=== PATIENT | male | born 1955 | race Hispanic/Latino ===

== ENCOUNTER 2016-09-17 13:44 | Inpatient (IN) | payer OTHER, MEDICARE ==
[2016-09-17 14:52] LABS: BASO # 0.1 K/uL (0.0-0.2); BASO % 1.2 % (0.0-2.0); EOS # 0.1 K/uL (0.0-0.7); EOS % 1.5 % (0.0-4.0); LYMPH # 1.1 K/uL (1.0-4.3); LYMPH % 24.2 % (20.0-40.0); MEAN CELL VOLUME 88.6 fL (80.0-94.0); MEAN CORPUSCULAR HEMOGLOBIN 29.6 pg (27.0-31.0); MEAN CORPUSCULAR HGB CONC 33.5 g/dL (33.0-37.0); MEAN PLATELET VOLUME 7.7 fL (7.2-11.7); MONO # 0.2 K/uL (0.0-0.8); MONO % 5.6 % (0.0-10.0); NRBC % 0.1 % (0.0-2.0); RED CELL DISTRIBUTION WIDTH 13.5 % (11.5-14.5); WHITE BLOOD COUNT 4.4 K/uL (4.8-10.8)
[2016-09-17 15:02] LABS: INR 1.3
[2016-09-17 15:10] LABS: CHLORIDE 100 mmol/L (98-107); POTASSIUM 4.1 mmol/L (3.6-5.2); SODIUM 139 mmol/L (132-148)
[2016-09-17 15:12] LABS: ALB/GLOB RATIO 1.3 (1.0-2.1); AST/SGOT 17 U/L (17-59); BILIRUBIN,TOTAL 0.7 mg/dL (0.2-1.3); CARBON DIOXIDE 26 mmol/L (22-30); GFR AFRICAN-AMERICAN > 60; TOTAL PROTEIN 6.9 g/dL (6.3-8.3)
[2016-09-17 15:13] LABS: ALKALINE PHOSPHATASE 86 U/L (38-126); ALT/SGPT 17 U/L (21-72); BLOOD UREA NITROGEN 17 mg/dL (9-20); CALCIUM 8.7 mg/dl (8.6-10.4); GLUCOSE,RANDOM 147 mg/dL (75-110)
--- NOTE | 2016-09-17 15:31 | C.PDOC ---
History Of Present Illness 61 y/o male referred to ED by reservations sales agent Dr Delarosa for admission for catheterization. Pt has no physical complaints at this time. Chief Complaint (Nursing): Medical Clearance History Per: Patient History/Exam Limitations: no limitations Reports Recently: Treated By A Physician Recent travel outside of the [place]: No Past Medical History Reviewed: Historical Data, Nursing Documentation, Vital Signs Vital Signs: Last Vital Signs Temp 98.5 F 09/17/16 13:49 Pulse 72 09/17/16 17:08 Resp 18 09/17/16 17:08 BP 122/78 09/17/16 17:08 Pulse Ox 98 09/17/16 17:08 - Medical History PMH: Hypercholesterolemia Family History: States: Unknown Family Hx - Social History Hx Alcohol Use: Yes Hx Substance Use: No - Immunization History Hx Tetanus Toxoid Vaccination: No Hx Influenza Vaccination: No Hx Pneumococcal Vaccination: No Review Of Systems Except As Marked, All Systems Reviewed And Found Negative. Constitutional: Negative for: Fever Cardiovascular: Negative for: Chest Pain Respiratory: Negative for: Cough, Shortness of Breath Gastrointestinal: Negative for: Vomiting Neurological: Negative for: Headache Physical Exam - Physical Exam Appears: Non-toxic, No Acute Distress Skin: Warm, Dry, No Rash Head: Atraumatic, Normacephalic Neck: Normal ROM Chest: Symmetrical Cardiovascular: Rhythm Regular, No Murmur Respiratory: Normal Breath Sounds, No Rales, No Rhonchi, No Wheezing Gastrointestinal/Abdominal: Soft, No Tenderness Extremity: No Pedal Edema Extremity: Bilateral: Atraumatic Neurological/Psych: Oriented x3, Normal Speech ED Course And Treatment - Laboratory Results Result Diagrams: 09/17/16 14:46 09/17/16 14:46 ECG: Interpreted By Me, Viewed By Me ECG Rhythm: Sinus Tachycardia Rate From EC (BPM) O2 Sat by Pulse Oximetry: 97 (on room air) Disposition - Disposition Disposition Time: 14:40 Condition: GOOD - Clinical Impression Clinical Impression: Bilateral carotid artery stenosis - Scribe Statement The provider has reviewed the documentation as recorded by the Liang Berry Provider Attestation: All medical record entries made by the Moriahibelaine were at my direction and personally dictated by me. I have reviewed the chart and agree that the record accurately reflects my personal performance of the history, physical exam, medical decision making, and the department course for this patient. I have also personally directed, reviewed, and agree with the discharge instructions and disposition.
--- NOTE | 2016-09-17 20:23 | CP.PCM.HP ---
History of Present Illness - History of Present Illness History of Present Illness: Chief complaint: Dizziness History present illness: 61-year-old male with history of CVA with right-sided weakness, mild hypertension, hypercholesteremia came to the office recently on August 26, 2016, at that time patient was complaining of some dizziness, and episodes of spinning sensation of the room. Patient did not have any headache at the time. No chest pain, nausea, vomiting at the time. Immediately I advised the patient to have a further workup for dizziness. Given the high risk of carotid problems. I advised the patient to have a sonogram of the carotids. He underwent a sonogram of the carotid after that, which showed significant carotid stenosis, bilateral, I suggested the patient to have further evaluation and immediate intervention. Patient was seen by vascular surgery, and suggested to have intervention surgically. Meanwhile patient was continues to have symptoms of dizziness, advised the patient to go to see the boiler mechanic, who recommended go to the hospital immediately. Even though he did not have a chest pain. Patient is at high risk for CAD, suggested to have further evaluation and management for heart disease. Present on Admission - Present on Admission Any Indicators Present on Admission: No History of DVT/PE: No History of Uncontrolled Diabetes: No Urinary Catheter: No Decubitus Ulcer Present: No Review of Systems - Review of Systems All systems: reviewed and no additional remarkable complaints except Review of Systems: Patient is feeling otherwise okay, he is expressive aphasia, but understand and he possibly well with. He does not have any chest pain or shortness of breath. Complaining of dizziness occasionally. Still continues to smoke. No chest pain. Denies any nausea vomiting. No leg swelling Past Patient History - Infectious Disease Hx of Infectious Diseases: None - Past Medical History & Family History Past Medical History?: Yes Past Family History: Reviewed and not pertinent - Past Social History Smoking Status: Current Some Days Smoker Chewing Tobacco Use: No Cigar Use: No Alcohol: None Home Situation {Lives}: With Family - CARDIAC Hx Hypercholesterolemia: Yes - NEUROLOGICAL HX Cerebrovascular Accident: Yes (12 YEARS AGO) - PSYCHIATRIC Hx Substance Use: No - SURGICAL HISTORY Hx Herniorrhaphy: Yes - ANESTHESIA Hx Anesthesia: Yes Hx Anesthesia Reactions: No Meds Allergies/Adverse Reactions: Allergies Allergy/AdvReac Type Severity Reaction Status Date / Time No Known Allergies Allergy Verified 09/17/16 13:52 Physical Exam - Constitutional Additional comments: Patient is having right-sided weakness. Expressive aphasia noted. Denies any chest pain. Bilateral leg swelling occasionally noted. Eating okay. Appetite is good - Head Exam Additional comments: On examination: HEENT PERRLA, neck supple No thyromegaly was noted and no cervical adenopathy noted Chest bilateral good air entry, no wheezing or rales noted CVS regular heart sound, no murmur Abdomen soft and no organomegaly Extremities no pedal edema, no leg swelling, pedal pulses are good. patient with right-sided weakness. expressive aphasia. Results - Vital Signs Recent Vital Signs: Last Vital Signs Temp 98.5 F 09/17/16 13:49 Pulse 83 09/17/16 19:45 Resp 21 09/17/16 19:45 BP 118/75 09/17/16 19:45 Pulse Ox 95 09/17/16 19:45 - Labs Result Diagrams: 09/17/16 14:46 09/17/16 14:46 Assessment & Plan (1) CVA (cerebral vascular accident) Assessment and Plan: Patient with history of CVA, currently having bilateral carotid artery stenosis , severe. Currently on medications. He is on dual antiplatelets treatment. Anticholesterol medication is on. Blood pressure stable, currently not in any antihypertensives. Will closely monitor the patient. Avoid hypertension. Cardiology evaluation, neurological evaluation. Will follow the patient Status: Acute (2) Carotid stenosis, bilateral Status: Acute (3) HTN (hypertension) Status: Acute
--- NOTE | 2016-09-17 22:09 | CP.PCM.CON ---
History of Present Illness - History of Present Illness History of Present Illness: Pre Operative Cardiac risk assessment 61 y/o male with Critical Carotid artery disease, HTN, Tobacco use, CVA for CEA History Of Present Illness Chief Complaint (Nursing): Medical Clearance History Per: Patient History/Exam Limitations: no limitations Reports Recently: Treated By A Physician Recent travel outside of the [place]: No Past Medical History Reviewed: Historical Data, Nursing Documentation, Vital Signs Vital Signs: Last Vital Signs Temp 98.5 F 09/17/16 13:49 Pulse 72 09/17/16 17:08 Resp 18 09/17/16 17:08 BP 122/78 09/17/16 17:08 Pulse Ox 98 09/17/16 17:08 - Medical History PMH: Hypercholesterolemia Family History: States: Unknown Family Hx - Social History Hx Alcohol Use: Yes Hx Substance Use: No - Immunization History Hx Tetanus Toxoid Vaccination: No Hx Influenza Vaccination: No Hx Pneumococcal Vaccination: No Review Of Systems Except As Marked, All Systems Reviewed And Found Negative. Constitutional: Negative for: Fever Cardiovascular: Negative for: Chest Pain Respiratory: Negative for: Cough, Shortness of Breath Gastrointestinal: Negative for: Vomiting Neurological: Negative for: Headache Physical Exam - Physical Exam Appears: Non-toxic, No Acute Distress Skin: Warm, Dry, No Rash Head: Atraumatic, Normacephalic Neck: Normal ROM Chest: Symmetrical Cardiovascular: Rhythm Regular, No Murmur Respiratory: Normal Breath Sounds, No Rales, No Rhonchi, No Wheezing Gastrointestinal/Abdominal: Soft, No Tenderness Extremity: No Pedal Edema Extremity: Bilateral: Atraumatic Neurological/Psych: Oriented x3, Normal Speech Past Patient History - Infectious Disease Hx of Infectious Diseases: None - Past Social History Smoking Status: Light Smoker < 10 Cigarettes Daily - CARDIAC Hx Hypercholesterolemia: Yes - NEUROLOGICAL HX Cerebrovascular Accident: Yes (12 YEARS AGO) - MUSCULOSKELETAL/RHEUMATOLOGICAL Hx Falls: No - PSYCHIATRIC Hx Substance Use: No - SURGICAL HISTORY Hx Herniorrhaphy: Yes - ANESTHESIA Hx Anesthesia: Yes Hx Anesthesia Reactions: No Meds Allergies/Adverse Reactions: Allergies Allergy/AdvReac Type Severity Reaction Status Date / Time No Known Allergies Allergy Verified 09/17/16 13:52 - Medications Medications: Current Medications Dipyridamole/Aspirin (Aggrenox 25-200 Mg) 1 ea PO BID [facility] Heparin Sodium (Porcine) (Heparin) 5,000 units SC Q8 [facility] Pneumococcal Polyvalent Vaccine (Pneumovax 23 Vaccine) 0.5 ml IM .ONCE ONE Stop: 09/22/16 10:01 Rosuvastatin Calcium (Crestor) 10 mg PO HS [facility] Results - Vital Signs Recent Vital Signs: Last Vital Signs Temp 97.7 F 09/17/16 20:45 Pulse 81 09/17/16 20:45 Resp 20 09/17/16 20:45 BP 127/85 09/17/16 20:45 Pulse Ox 97 09/17/16 20:45 - Labs Result Diagrams: 09/17/16 14:46 09/17/16 14:46 Assessment & Plan (1) Carotid stenosis, bilateral Assessment and Plan: For cardiac cath in am Status: Acute (2) CVA (cerebral vascular accident) Status: Acute (3) HTN (hypertension) Status: Acute (4) Hyperlipidemia Status: Acute
--- NOTE | 2016-09-18 08:30 | CP.PCM.PN ---
Subjective - Date & Time of Evaluation Date of Evaluation: 09/18/16 Time of Evaluation: 06:45 - Subjective Subjective: Vascular Surgery Dr. Aguilera 61 y/o M is a known pt of Dr. Aguilera. Pt presented to the ED for cardiac cathaterization today. Pt is scheduled for a CEA on Wednesday. Pt has Hx of CVA, is aphasic, and uses splints on R arm and leg. NAEO. no complaints this AM. NPO for procedure this AM. Objective - Vital Signs/Intake and Output Vital Signs (last 24 hours): Temp Pulse Resp BP Pulse Ox 97.7 F 81 20 131/74 97 09/18/16 04:00 09/18/16 07:30 09/18/16 04:00 09/18/16 04:00 09/18/16 04:00 Intake and Output: 09/18/16 09/18/16 06:59 18:59 Intake Total 200 Balance 200 - Medications Medications: Current Medications Dipyridamole/Aspirin (Aggrenox 25-200 Mg) 1 ea PO BID [facility] Heparin Sodium (Porcine) (Heparin) 5,000 units SC Q8 [facility] Last Admin: 09/18/16 06:22 Dose: Not Given Pneumococcal Polyvalent Vaccine (Pneumovax 23 Vaccine) 0.5 ml IM .ONCE ONE Stop: 09/22/16 10:01 Rosuvastatin Calcium (Crestor) 10 mg PO HS [facility] - Labs Labs: PT 15.0 SECONDS (9.7-12.2) H 09/17/16 14:46 INR 1.3 09/17/16 14:46 APTT 33 SECONDS (21-34) 09/18/16 07:01 - Constitutional Appears: Non-toxic, No Acute Distress - Head Exam Head Exam: NORMAL INSPECTION - Eye Exam Eye Exam: Normal appearance - ENT Exam ENT Exam: Mucous Membranes Moist - Respiratory Exam Respiratory Exam: NORMAL BREATHING PATTERN. absent: Accessory Muscle Use, Respiratory Distress - GI/Abdominal Exam GI & Abdominal Exam: Soft. absent: Distended - Neurological Exam Neurological Exam: Alert, Awake - Psychiatric Exam Psychiatric exam: Normal Affect, Normal Mood - Skin Skin Exam: Dry, Intact, Normal Color, Warm Assessment and Plan - Assessment and Plan (Free Text) Assessment: 61 y/o M w/ B/L carotid artery stenosis s/p L CVA. - Cardiac cath this AM - may be discharged if cath is negative - CEA scheduled for Wednesday - cont medical management Pt discussed w/ Dr. Ale Saldivar PGY1
[2016-09-18] MEDS ORDERED: Midazolam 2 MG/2 ML VIAL ONE (09:03)
[2016-09-18] MEDS ORDERED: Aspirin-Dipyridamole 200-25 mg ER Cap PO SCH (10:00)
--- NOTE | 2016-09-18 11:53 | CP.PCM.CON ---
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 Flores HPI: Patient is a 61 year old male, with PMHx of Carotid artery disease, HTN, BPH, hyperlipidemia, CVA (12 years ago; sequelae of expressive aphasia and right sided paralysis), who presented to ED on 09/[address] Delarosa for cardiac catheterization. Carotids found to be 99% stenosed bilaterally. Patient was originally scheduled for carotid endarterectomy, but during cath pt was found to have 99% blockage of left circumflex, and 85% stenosis of Proximal RCA. Pt scheduled for PCI on Wednesday in [place], and CEA next . Pt admits increased dyspnea on exertion with 'long walks.' Walking is more difficult at baseline due to sequelae of right sided weakness from prior stroke. Pt denies chest pain, palpitations, abdominal pain, diaphoresis, or dyspnea. Allergies: NKA PMHx: see above FHx: Mother - Carotid artery disease, Father - [place] PMD: Dr. Fung SHx: Tobacco: , Alcohol: Red wine daily, Illicit Drugs: denies Meds: Aggrenox 25/200mg, Lipitor 40mg, Uroxatral 10mg Review of Systems - Review of Systems Systems not reviewed;Unavailable: Language Barrier (Pt aphasic from past stroke) - Constitutional Constitutional: absent: Chills, Fever - EENT Eyes: absent: Change in Vision Ears: absent: Decreased Hearing - Cardiovascular Cardiovascular: Dyspnea on Exertion (with 'long walks'). absent: Chest Pain, Chest Pain at Rest, Dyspnea - Respiratory Respiratory: absent: Cough - Gastrointestinal Gastrointestinal: absent: Abdominal Pain, Nausea, Vomiting - Genitourinary Genitourinary: absent: Dysuria - Musculoskeletal Musculoskeletal: absent: Numbness, Tingling Additional comments: contracture of right side, sequelae of previous stroke - Integumentary Integumentary: absent: Swelling - Psychiatric Psychiatric: absent: Anxiety, Depression - Endocrine Endocrine: absent: Fatigue, Polydipsia, Polyphagia, Polyuria - Hematologic/Lymphatic Hematologic: absent: Easy Bleeding Past Patient History - Infectious Disease Hx of Infectious Diseases: None - Past Medical History & Family History Past Medical History?: Yes - Past Social History Smoking Status: Light Smoker < 10 Cigarettes Daily - CARDIAC Hx Hypercholesterolemia: Yes - NEUROLOGICAL HX Cerebrovascular Accident: Yes (12 YEARS AGO) - MUSCULOSKELETAL/RHEUMATOLOGICAL Hx Falls: No - PSYCHIATRIC Hx Substance Use: No - SURGICAL HISTORY Hx Herniorrhaphy: Yes - ANESTHESIA Hx Anesthesia: Yes Hx Anesthesia Reactions: No Meds Allergies/Adverse Reactions: Allergies Allergy/AdvReac Type Severity Reaction Status Date / Time No Known Allergies Allergy Verified 09/17/16 13:52 - Medications Medications: Current Medications Aspirin (Ecotrin) 81 mg PO DAILY [facility] Clopidogrel Bisulfate (Plavix) 75 mg PO DAILY [facility] Enoxaparin Sodium (Lovenox) 70 mg SC DAILY [facility] Famotidine (Pepcid) 20 mg PO BID [facility] Heparin Sodium (Porcine) (Heparin) 5,000 units SC Q8 [facility] Last Admin: 09/18/16 06:22 Dose: Not Given Pneumococcal Polyvalent Vaccine (Pneumovax 23 Vaccine) 0.5 ml IM .ONCE ONE Stop: 09/22/16 10:01 Rosuvastatin Calcium (Crestor) 20 mg PO [facility] Physical Exam - Constitutional Appears: Non-toxic, No Acute Distress - Head Exam Head Exam: ATRAUMATIC, NORMAL INSPECTION - Eye Exam Eye Exam: EOMI Pupil Exam: PERRL - ENT Exam ENT Exam: Mucous Membranes Moist - Respiratory Exam Respiratory Exam: Clear to Auscultation Bilateral, NORMAL BREATHING PATTERN - Cardiovascular Exam Cardiovascular Exam: REGULAR RHYTHM, +S1, +S2 - GI/Abdominal Exam GI & Abdominal Exam: Normal Bowel Sounds, Soft. absent: Tenderness - Extremities Exam Extremities exam: Positive for: normal inspection. Negative for: tenderness - Neurological Exam Neurological exam: Alert, Oriented x3 - Skin Skin Exam: Normal Color, Warm Results - Vital Signs Recent Vital Signs: Last Vital Signs Temp 97.6 F 09/18/16 08:29 Pulse 70 09/18/16 08:29 Resp 20 09/18/16 08:29 BP 114/72 09/18/16 08:29 Pulse Ox 96 09/18/16 08:29 - Labs Result Diagrams: 09/17/16 14:46 09/17/16 14:46 Assessment & Plan - Assessment and Plan (Free Text) Assessment: 61 year old male with hx of CAD, HTN, hyperlipidemia, with carotids found to be 99% stenosed bilaterally, and during cath pt was found to have 99% blockage of left circumflex, and 85% stenosis of Proximal RCA. CEA and Cath scheduled for next week. Monitoring in ICU until then. Plan: Neuro: AAOx3 Hx of CVA (12 years ago) - Sequelae of right sided weakness, expressive aphasia - Passed speech therapy swallow study Hx of bilateral Carotid stenosis - 99% blockage bilaterally - CEA scheduled for next with Dr. Aguilera Cardio: CAD Cardiac cath (09/18/16): - Left circumflex 99% stenosis, Prox RCA 85% - Wednesday PCI @ [place] [facility] 81 mg Daily Plavix 75 mg Daily Crestor 20mg PO HS Normotensive GI: Heart Healthy Diet LFTs: WNL /Renal: Hx of BPH - Pt will bring in home Uroxatral BUN/Cr: WNL, GFR: MSKLTL: f/u PT/OT eval Prophylaxis: DVT: SCDs VTE: Lovenox SC Q12H GI: Pepcid 20mg PO BID <Dashawn Flores - Last Filed: 09/18/16 18:56> Meds - Medications Medications: Current Medications Aspirin (Ecotrin) 81 mg PO DAILY [facility] Clopidogrel Bisulfate (Plavix) 75 mg PO DAILY [facility] Enoxaparin Sodium (Lovenox) 70 mg SC Q12H [facility] Last Admin: 09/18/16 18:29 Dose: 70 mg Famotidine (Pepcid) 20 mg PO BID [facility] Last Admin: 09/18/16 18:25 Dose: 20 mg Pneumococcal Polyvalent Vaccine (Pneumovax 23 Vaccine) 0.5 ml IM .ONCE ONE Stop: 09/22/16 10:01 Rosuvastatin Calcium (Crestor) 20 mg PO [facility] Results - Vital Signs Recent Vital Signs: Last Vital Signs Temp 97.8 F 09/18/16 16:00 Pulse 89 09/18/16 18:45 Resp 24 09/18/16 18:45 BP 140/86 09/18/16 18:45 Pulse Ox 95 09/18/16 18:45 - Labs Result Diagrams: 09/17/16 14:46 09/17/16 14:46 Attending/Attestation - Attestation I have personally seen and examined this patient.: Yes I have fully participated in the care of the patient.: Yes I have reviewed all pertinent clinical information: Yes Notes (Text): 09/18/16 18:55 I have seen and examined the patient. Medical records, lab studies, and imaging were reviewed by me and a management plan was formulated on multidisciplinary rounds with resident Dr. Russ. I agree with their above documented assessment and plan. Clinically stable, patient getting ICU monitoring for high risk of decompensation from multiple arterial occlusions. Angioplasty scheduled for Wednesday. Critical Care Time 35 minutes. Multi-disciplinary rounds were performed with house staff, nursing, speech therapy, respiratory therapy, pharmacy and nutrition with integrated input from the primary team/attending and other consulting services. The documented time is cumulative and includes review of patient data/exams/labs/chart review and examination of the patient on rounds and throughout the day; time is exclusive of any procedures or teaching time.
--- NOTE | 2016-09-18 16:55 | CP.PCM.PN ---
Subjective - Date & Time of Evaluation Date of Evaluation: 09/18/16 Time of Evaluation: 11:30 - Subjective Subjective: Patient s/p cath L Main: Patent LAD: Mid 30% stenosis L Cx: OM1 99% stenosis RCA: Proximal 85% stenosis EF: Moderately depressed Patient with b/l Critical Carotid stenosis For PCI of RCA and OM1 on Wednesday CEA on Due to criticality of Carotid and Caronary lesions recommend ICU monitoring with anticoagulation on board Plan discussed with the physician team include Dr. Oneil and Dr. Aguilera and the family including the patient Every body in agreement Objective - Vital Signs/Intake and Output Vital Signs (last 24 hours): Temp Pulse Resp BP Pulse Ox 97.8 F 75 16 109/77 95 09/18/16 16:00 09/18/16 16:30 09/18/16 16:30 09/18/16 16:30 09/18/16 16:30 - Medications Medications: Current Medications Aspirin (Ecotrin) 81 mg PO DAILY [facility] Clopidogrel Bisulfate (Plavix) 75 mg PO DAILY [facility] Enoxaparin Sodium (Lovenox) 70 mg SC DAILY [facility] Famotidine (Pepcid) 20 mg PO BID [facility] Heparin Sodium (Porcine) (Heparin) 5,000 units SC Q8 [facility] Last Admin: 09/18/16 06:22 Dose: Not Given Pneumococcal Polyvalent Vaccine (Pneumovax 23 Vaccine) 0.5 ml IM .ONCE ONE Stop: 09/22/16 10:01 Rosuvastatin Calcium (Crestor) 20 mg PO HS [facility] - Labs Labs: PT 15.0 SECONDS (9.7-12.2) H 09/17/16 14:46 INR 1.3 09/17/16 14:46 APTT 33 SECONDS (21-34) 09/18/16 07:01 Assessment and Plan (1) Carotid stenosis, bilateral Status: Acute (2) CVA (cerebral vascular accident) Status: Acute (3) HTN (hypertension) Status: Acute (4) Hyperlipidemia Status: Acute
[2016-09-18] MEDS: Enoxaparin 80 mg Syringe SC SCH (18:29)
[2016-09-18] MEDS ORDERED: Enoxaparin 80 mg Syringe SC SCH (20:00)
--- NOTE | 2016-09-18 20:55 | CP.PCM.PN ---
Subjective - Date & Time of Evaluation Date of Evaluation: 09/18/16 Time of Evaluation: 20:54 - Subjective Subjective: Patient is awake and responding. He underwent cardiac catheterization today. Spoke to the patient's . Patient is having 2 vessel disease. Ejection fraction is on the low side. Most likely patient will be getting cardiac intervention. Followed by patient will go for CEA. Will get a neurology evaluation also Objective - Vital Signs/Intake and Output Vital Signs (last 24 hours): Temp Pulse Resp BP Pulse Ox 97.8 F 89 24 140/86 95 09/18/16 16:00 09/18/16 18:45 09/18/16 18:45 09/18/16 18:45 09/18/16 18:45 Intake and Output: 09/18/16 09/19/16 18:59 06:59 Intake Total 600 Output Total 750 Balance -150 - Medications Medications: Current Medications Aspirin (Ecotrin) 81 mg PO DAILY [facility] Clopidogrel Bisulfate (Plavix) 75 mg PO DAILY [facility] Enoxaparin Sodium (Lovenox) 70 mg SC Q12H [facility] Last Admin: 09/18/16 18:29 Dose: 70 mg Famotidine (Pepcid) 20 mg PO BID [facility] Last Admin: 09/18/16 18:25 Dose: 20 mg Pneumococcal Polyvalent Vaccine (Pneumovax 23 Vaccine) 0.5 ml IM .ONCE ONE Stop: 09/22/16 10:01 Rosuvastatin Calcium (Crestor) 20 mg PO HS [facility] - Labs Labs: PT 15.0 SECONDS (9.7-12.2) H 09/17/16 14:46 INR 1.3 09/17/16 14:46 APTT 33 SECONDS (21-34) 09/18/16 07:01 Assessment and Plan (1) CVA (cerebral vascular accident) Status: Acute (2) Carotid stenosis, bilateral Status: Acute (3) HTN (hypertension) Status: Acute
[2016-09-19] MEDS: Enoxaparin 80 mg Syringe SC SCH ×2 (06:07→17:40)
[2016-09-19 06:54] LABS: CHLORIDE 104 mmol/L (98-107); SODIUM 137 mmol/L (132-148)
[2016-09-19 06:56] LABS: ALB/GLOB RATIO 1.2 (1.0-2.1); ALKALINE PHOSPHATASE 56 U/L (38-126); AST/SGOT 44 U/L (17-59); BLOOD UREA NITROGEN 14 mg/dL (9-20); CARBON DIOXIDE 22 mmol/L (22-30); GFR AFRICAN-AMERICAN > 60; TOTAL PROTEIN 7.1 g/dL (6.3-8.3)
[2016-09-19 06:57] LABS: GLUCOSE,RANDOM 93 mg/dL (75-110); MAGNESIUM 1.9 mg/dL (1.6-2.3); PHOSPHOROUS 3.7 mg/dL (2.5-4.5)
[2016-09-19 06:58] LABS: CALCIUM 7.9 mg/dl (8.6-10.4); POTASSIUM 5.8 mmol/L (3.6-5.2)
[2016-09-19 06:59] LABS: ALT/SGPT < 6 U/L (21-72); BILIRUBIN,TOTAL 2.1 mg/dL (0.2-1.3)
[2016-09-19 07:10] LABS: BASO % 0.7 % (0.0-2.0); EOS # 0.1 K/uL (0.0-0.7); EOS % 2.4 % (0.0-4.0); HEMATOCRIT 43.2 % (35.0-51.0); LYMPH # 1.3 K/uL (1.0-4.3); MEAN CELL VOLUME 88.6 fL (80.0-94.0); MEAN CORPUSCULAR HEMOGLOBIN 29.5 pg (27.0-31.0); MEAN CORPUSCULAR HGB CONC 33.3 g/dL (33.0-37.0); MEAN PLATELET VOLUME 8.6 fL (7.2-11.7); MONO # 0.4 K/uL (0.0-0.8); MONO % 7.8 % (0.0-10.0); NRBC % 0.5 % (0.0-2.0); RED CELL DISTRIBUTION WIDTH 13.3 % (11.5-14.5); WHITE BLOOD COUNT 5.3 K/uL (4.8-10.8)
--- NOTE | 2016-09-19 11:35 | CP.PCM.PN ---
Subjective - Date & Time of Evaluation Date of Evaluation: 09/19/16 Time of Evaluation: 10:30 - Subjective Subjective: Vascular Surgery Pt S&E, NAEO. Pt is aphasic but can answer via nodding. Denies current C/O Objective - Vital Signs/Intake and Output Vital Signs (last 24 hours): Temp Pulse Resp BP Pulse Ox 98.0 F 73 18 127/87 97 09/19/16 04:00 09/19/16 04:00 09/19/16 04:00 09/19/16 04:00 09/19/16 04:00 Intake and Output: 09/19/16 09/19/16 06:59 18:59 Intake Total 1080 240 Output Total 2150 Balance -1070 240 - Medications Medications: Current Medications Aspirin (Ecotrin) 81 mg PO DAILY [facility] Clopidogrel Bisulfate (Plavix) 75 mg PO DAILY [facility] Enoxaparin Sodium (Lovenox) 70 mg SC Q12H [facility] Last Admin: 09/19/16 06:07 Dose: 70 mg Famotidine (Pepcid) 20 mg PO BID [facility] Last Admin: 09/18/16 18:25 Dose: 20 mg Pneumococcal Polyvalent Vaccine (Pneumovax 23 Vaccine) 0.5 ml IM .ONCE ONE Stop: 09/22/16 10:01 Rosuvastatin Calcium (Crestor) 20 mg PO [facility] Last Admin: 09/18/16 21:32 Dose: 20 mg - Labs Labs: 09/19/16 06:40 09/19/16 06:40 PT 15.0 SECONDS (9.7-12.2) H 09/17/16 14:46 INR 1.3 09/17/16 14:46 APTT 33 SECONDS (21-34) 09/18/16 07:01 - Constitutional Appears: Non-toxic, No Acute Distress - Head Exam Head Exam: ATRAUMATIC, NORMOCEPHALIC - Respiratory Exam Respiratory Exam: NORMAL BREATHING PATTERN. absent: Respiratory Distress - GI/Abdominal Exam GI & Abdominal Exam: Soft. absent: Distended, Tenderness - Neurological Exam Neurological Exam: Alert, Awake - Skin Skin Exam: Dry, Warm Assessment and Plan - Assessment and Plan (Free Text) Assessment: 61M w/ B/L carotid artery stenosis s/p L CVA. Plan: Cardiac cath done. Planning for L CEA this coming week D/W Dr. Ale Burnette PGY3
--- NOTE | 2016-09-19 15:12 | CARD ---
APPROVED REPORT EKG Measurement Heart [id number] MI [id number] <Conclusion> Sinus tachycardia Left axis deviation Possible Lateral infarct, age undetermined Inferior-posterior infarct, age undetermined Abnormal ECG
--- NOTE | 2016-09-19 15:20 | CP.CCUPN ---
CCU Objective - Vital Signs / Intake & Output Intake and Output (Last 8hrs): Intake & Output 09/19/16 09/19/16 09/19/16 06:59 14:59 22:59 Intake Total 480 990 Output Total 1500 800 Balance -1020 190 Intake: Intake, IV Amount 0 Left Antecubital 0 Oral 480 990 Output: Urine 1500 800 Urine, Voided 1500 800 Other: # Voids Urine, Voided 0 # Bowel Movements 0 - Physical Exam Head: Positive for: Atraumatic, Normocephalic Pupils: Positive for: PERRL Extroacular Muscles: Positive for: EOMI Conjunctiva: Positive for: Normal Mouth: Positive for: Moist Mucous Membranes Neck: Positive for: Normal Range of Motion Respiratory/Chest: Positive for: Clear to Auscultation, Good Air Exchange Cardiovascular: Positive for: Regular Rate and Rhythm Abdomen: Positive for: Normal Bowel Sounds. Negative for: Tenderness, Distention Upper Extremity: Positive for: Normal Inspection Lower Extremity: Positive for: Normal Inspection Neurological: Positive for: GCS=15, CN II-XII Intact Psychiatric: Positive for: Alert, Oriented x 3 - Medications Active Medications: Active Medications Generic Name Dose Route Start Last Admin Trade Name Freq PRN Reason Stop Dose Admin Aspirin 81 mg 09/19/16 10:00 09/19/16 11:57 Ecotrin PO 81 mg DAILY [facility] Administration Clopidogrel Bisulfate 75 mg 09/19/16 10:00 09/19/16 11:57 Plavix PO 75 mg DAILY [facility] Administration Enoxaparin Sodium 70 mg 09/18/16 18:00 09/19/16 06:07 Lovenox SC 70 mg Q12H [facility] Administration Famotidine 20 mg 09/18/16 18:00 09/19/16 11:57 Pepcid PO 20 mg BID [facility] Administration Pneumococcal Polyvalent Vaccine 0.5 ml 09/22/16 10:00 Pneumovax 23 Vaccine IM 09/22/16 10:01 .ONCE ONE Rosuvastatin Calcium 20 mg 09/18/16 22:00 09/18/16 21:32 Crestor PO 20 mg HS [facility] Administration - Patient Studies Lab Studies: Lab Studies 09/19/16 Range/Units 06:40 WBC 5.3 (4.8-10.8) K/uL RBC 4.88 (4.40-5.90) Mil/uL Hgb 14.4 (12.0-18.0) g/dL Hct 43.2 (35.0-51.0) % MCV 88.6 (80.0-94.0) fL MCH 29.5 (27.0-31.0) pg MCHC 33.3 (33.0-37.0) g/dL RDW 13.3 (11.5-14.5) % Plt Count 167 (130-400) K/uL MPV 8.6 (7.2-11.7) fL Neut % (Auto) 64.1 (50.0-75.0) % Lymph % (Auto) 25.0 (20.0-40.0) % Treasure % (Auto) 7.8 (0.0-10.0) % Eos % (Auto) 2.4 (0.0-4.0) % Baso % (Auto) 0.7 (0.0-2.0) % Neut # 3.4 (1.8-7.0) K/uL Lymph # 1.3 (1.0-4.3) K/uL Treasure # 0.4 (0.0-0.8) K/uL Eos # 0.1 (0.0-0.7) K/uL Baso # 0.0 (0.0-0.2) K/uL Sodium 137 (132-148) mmol/L Potassium 5.8 H (3.6-5.2) mmol/L Chloride 104 (98-107) mmol/L Carbon Dioxide 22 (22-30) mmol/L Anion Gap 17 (10-20) BUN 14 (9-20) mg/dL Creatinine 0.8 (0.8-1.5) MG/DL Est GFR ( Amer) > 60 Est GFR (Non-Af Amer) > 60 Random Glucose 93 (75-110) mg/dL Calcium 7.9 L (8.6-10.4) mg/dl Phosphorus 3.7 (2.5-4.5) mg/dL Magnesium 1.9 (1.6-2.3) mg/dL Total Bilirubin 2.1 H (0.2-1.3) mg/dL AST 44 (17-59) U/L ALT < 6 L D (21-72) U/L Alkaline Phosphatase 56 (38-126) U/L Total Protein 7.1 (6.3-8.3) g/dL Albumin 3.8 (3.5-5.0) g/dL Globulin 3.3 (2.2-3.9) gm/dL Albumin/Globulin Ratio 1.2 (1.0-2.1) Laboratory Results - last 24 hr 09/19/16 06:40 WBC 5.3 RBC 4.88 Hgb 14.4 Hct 43.2 MCV 88.6 MCH 29.5 MCHC 33.3 RDW 13.3 Plt Count 167 MPV 8.6 Neut % (Auto) 64.1 Lymph % (Auto) 25.0 Treasure % (Auto) 7.8 Eos % (Auto) 2.4 Baso % (Auto) 0.7 Neut # 3.4 Lymph # 1.3 Treasure # 0.4 Eos # 0.1 Baso # 0.0 Sodium 137 Potassium 5.8 H Chloride 104 Carbon Dioxide 22 Anion Gap 17 BUN 14 Creatinine 0.8 Est GFR ( Amer) > 60 Est GFR (Non-Af Amer) > 60 Random Glucose 93 Calcium 7.9 L Phosphorus 3.7 Magnesium 1.9 Total Bilirubin 2.1 H AST 44 ALT < 6 L D Alkaline Phosphatase 56 Total Protein 7.1 Albumin 3.8 Globulin 3.3 Albumin/Globulin Ratio 1.2 Review of Systems - Review of Systems All systems: reviewed and no additional remarkable complaints except Critical Care Progress Note - Nutrition Nutrition: Nutrition Category Date Time Status Heart Healthy Diet [DIET] Diets 09/18/16 Lunch Active Assessment/Plan (1) CAD (coronary artery disease) Assessment and plan: Assessment: 61 year old male with hx of CAD, HTN, hyperlipidemia, with carotids found to be 99% stenosed bilaterally, and during cath pt was found to have 99% blockage of left circumflex, and 85% stenosis of Proximal RCA. CEA and Cath scheduled for next week. Monitoring in ICU until then. Plan: Neuro: AAOx3 Hx of CVA (12 years ago) - Sequelae of right sided weakness, expressive aphasia - Passed speech therapy swallow study Hx of bilateral Carotid stenosis - 99% blockage bilaterally - CEA scheduled for next with Dr. Aguilera Cardio: CAD Cardiac cath (09/18/16): - Left circumflex 99% stenosis, Prox RCA 85% - Wednesday PCI @ [place] A[facility] 81 mg Daily Plavix 75 mg Daily Crestor 20mg PO HS Normotensive GI: Heart Healthy Diet LFTs: WNL /Renal: Hx of BPH - Pt will bring in home Uroxatral BUN/Cr: WNL, GFR: MSKLTL: f/u PT/OT eval Prophylaxis: DVT: SCDs VTE: Lovenox SC Q12H GI: Pepcid 20mg PO BID Patient is clinically stable. Current Visit: Yes Status: Acute
--- NOTE | 2016-09-19 15:27 | CON ---
DATE: 09/19/2016 ATTENDING PHYSICIAN: Moreno Fung MD. REASON FOR CONSULTATION: Stroke and significant carotid artery stenosis. CHIEF COMPLAINT: The patient was brought into [facility] as per primary care physician. Been advised because of his dizziness and chest discomfort. From neurological point of view, I was called in for neurological clearance to go for cardiac stent placement. HISTORY OF PRESENT ILLNESS: The patient is a 61-year-old right-handed [place] male presenting with about a 1 hour history of lightheadedness with unsteady gait, which lasted for about 1 hour, not associated with vertigo or speech impairment. He denies any focal weakness. The symptoms disappeared by itself. Considering his chest discomfort, the patient did undergo cardiac catheterization that showed 2 artery disease which is scheduled to have a stent placement on Wednesday. Because of his neurological complication and abnormal workup, I was called in to see him. He denies neck pain. Denies any chest pain now. No palpitations at present. He is breathing normal. PAST MEDICAL HISTORY: Hypertension, dyslipidemia, stroke 12 years ago manifesting with right side hemiparesis and aphasia. PERSONAL HISTORY: Current smoker. No history of alcohol use. MEDICATIONS AT HOME: Crestor, Ecotrin, Lovenox, Pepcid, Plavix. REVIEW OF SYSTEMS: As per H and P. PHYSICAL EXAMINATION: VITAL SIGNS: Mean arterial pressure of 100 with a blood pressure 127/87, respiratory rate 18, temperature 97.9 degrees Fahrenheit. NECK: Supple. High pitched bruit heard on either side. LUNGS: Clear. HEART: Sounds are regular. CHEST: Fair air entry. EXTREMITIES: Externally rotated. CRANIAL NERVE EXAMINATION: Visual bird intact, pupils reactive. Extraocular movement normal. No nystagmus, no facial sensory deficit. Mild facial asymmetry manifesting as a flattening of the right nasolabial fold. Hearing is normal. Tongue is midline. Good gag. MOTOR EXAMINATION: 0/5 right upper extremity and right leg 3/5 strength compared with the left side. Left side is normal. DEEP TENDON REFLEXES: Biceps, brachioradialis, triceps 2+ on the right side; left side 1+. Both knees are trace. Both ankles are absent. Plantars are upgoing on the right side. SENSORY EXAMINATION: Significantly decreased pinprick and pain on the right side to compare with the left side. COORDINATION: [id number] test is intact on the left side. CONCLUSION: Upon reviewing his history and neurological examination, the patient is presenting with episode of vertebrobasilar insufficiency knowing with multiple risk factors of dyslipidemia, hypertension, smoking, with the previous stroke and carotid artery disease. This vertebrobasilar insufficiency should be ruled out, which leads in to any new stroke process or not in the posterior cerebral artery distribution. His right spastic hemiparesis arm > leg with Motor Aphasia consistent with left dominant hemispheric dysfunction (MCA territory) with out affecting occipital lobe - OLD. His previous workup is consistent with significant stenosis in bilateral carotid arteries, right more than his left side, which is confirmed in CT angiogram. RECOMMENDATIONS: The patient should have MRI of the brain without gadolinium to rule out any new stroke process in addition to his presenting problem. This should be a highly variable finding prior to going for stent placement. Following stent placement, patient should be recommended to have carotid artery endarterectomy, first on the right side, then to the left side. In the meantime, the patient should continue dual antiplatelets with Lovenox. Sleep studies to be done after his impending problems get corrected, as an out patient to R/O SRBD. The patient's condition has been well discussed with senior librarian as well as all family members. They agree my plan of management. The patient will be followed while he is in the hospital. Prashant Kebede MD cc: [id number] TT: 09/19/2016 15:26:37 Confirmation # [id number] Dictation # [id number] michael SANDHU
--- NOTE | 2016-09-19 15:29 | CARD ---
APPROVED REPORT EXAM: Two-dimensional and M-mode echocardiogram with Doppler and color Doppler. Other Information Quality : GoodRhythm : NSR INDICATION Congestive Heart Failure M-Mode DIMENSIONS RVDd1.13 (2.1-3.2cm)Left Atrium (MM)4.02 (2.5-4.0cm) IVSd1.05 (0.7-1.1cm)Aortic Root3.05 (2.2-3.7cm) LVDd6.13 (4.0-5.6cm)Aortic Cusp Exc.1.87 (1.5-2.0cm) PWd1.09 (0.7-1.1cm)FS (%) 25 % LVDs4.57 (2.0-3.8cm)LVEF (%)49 (>50%) Aortic Valve AoV Peak Ykyjfkfm339.1cm/Haresh Peak GR.6mmHg Mitral Valve MV E Awutbtod27.2cm/sMV A Xpfnxbdm30.8cm/sE/A ratio0.6 TDI E/Lateral E'0.0E/Medial E'0.0 Tricuspid Valve TR Peak Ziqcyhbk795dh/sTR Peak Gr.14kqKxCHBK60dgAs <Conclusion> poor window. mildly dilated la,lv. normal lv wall motion,thickness with visual estimation of lvef of 50-55%. normal ra,rv. aortic,mitral,tv & pv appears normal. mild mr,trace tr with normal pulmonary systolic pressures of 20 mm of hg. no pericardial effusion. normal size aortic root.
--- NOTE | 2016-09-19 15:49 | MRI ---
PROCEDURE: MRI BRAIN WITHOUT CONTRAST HISTORY: old Stroke R/O new stroke process COMPARISON: Comparison made with CTA of the neck dated 09/11/2016 which partially imaged the brain. TECHNIQUE: Multiplanar, multisequence MR images of the brain were obtained without intravenous contrast enhancement. FINDINGS: HEMORRHAGE: No acute parenchymal, subarachnoid or extra-axial hemorrhage. There may be some minimal surface hemosiderin left posterior superior frontal region bordering the superior and inferomedial margins of a large left MCA territory infarct DWI: No evidence of or subacute infarcts seen on diffusion-weighted sequence. Theacute infarct. BRAIN PARENCHYMA: Large chronic left MCA territory infarct involving with good portion of the left cerebral hemisphere with sparing of the occipital lobe. There is associated with ex vacuo dilatation of the left lateral. There is a small approximately 9.4 x 8.2 mm elliptical shaped masslike density which is located in the left superior posterior frontal region near the convexity though this appears to be at extrinsic to the atrophic cortex. This could represent an incidental small meningioma at and best seen on axial T1 and T2 sequences series 5 and 7, image number 7 VENTRICLES: Moderate generalized volume ventricle with enlargement of the ventricles and sulci common not withstanding the aforementioned ex vacuo dilatation of the left lateral ventricle. CRANIUM: Calvarium appears grossly unremarkable. ORBITS: The orbits and contents also unremarkable. PARANASAL SINUSES/MASTOIDS: Moderate mucosal thickening left maxillary sinus. VASCULAR SYSTEM: Marked narrowing of the left distal internal carotid artery including the petrous, cavernous and supraclinoid segments. OTHER FINDINGS: None. IMPRESSION: No evidence of acute infarct. Large chronic left MCA territory infarct. . There appears to be some hemosiderin deposition along the peripheral margins of the aforementioned infarct as above. Questionable incidental meningioma left superior posterior frontal region as above ; follow-up nonemergent MRI with contrast could be performed further evaluation if necessary See above discussion for additional findings and details.
--- NOTE | 2016-09-19 18:10 | CP.PCM.PN ---
Subjective - Date & Time of Evaluation Date of Evaluation: 09/19/16 Time of Evaluation: 12:05 - Subjective Subjective: Patient currently comfortable Patient is a 61 year old male, with PMHx of Carotid artery disease, HTN, BPH, hyperlipidemia, CVA (12 years ago; sequelae of expressive aphasia and right sided paralysis), Carotids found to be 99% stenosed bilaterally. Patient was originally scheduled for carotid endarterectomy, but during cath pt was found to have 99% blockage of left circumflex, and 85% stenosis of Proximal RCA. Pt scheduled for PCI on Wednesday in [place], and CEA next . Pt admits increased dyspnea on exertion with 'long walks.' Walking is more difficult at baseline due to sequelae of right sided weakness from prior stroke. Pt denies chest pain, palpitations, abdominal pain, diaphoresis, or dyspnea. Allergies: NKA PMHx: see above FHx: Mother - Carotid artery disease, Father - [place] PMD: Dr. Fung SHx: Tobacco: , Alcohol: Red wine daily, Illicit Drugs: denies Meds: Aggrenox 25/200mg, Lipitor 40mg, Uroxatral 10mg Review of Systems - Review of Systems Systems not reviewed;Unavailable: Language Barrier (Pt aphasic from past stroke) - Constitutional Constitutional: absent: Chills, Fever - EENT Eyes: absent: Change in Vision Ears: absent: Decreased Hearing - Cardiovascular Cardiovascular: Dyspnea on Exertion (with 'long walks'). absent: Chest Pain, Chest Pain at Rest, Dyspnea - Respiratory Respiratory: absent: Cough - Gastrointestinal Gastrointestinal: absent: Abdominal Pain, Nausea, Vomiting - Genitourinary Genitourinary: absent: Dysuria - Musculoskeletal Musculoskeletal: absent: Numbness, Tingling Additional comments: contracture of right side, sequelae of previous stroke - Integumentary Integumentary: absent: Swelling - Psychiatric Psychiatric: absent: Anxiety, Depression - Endocrine Endocrine: absent: Fatigue, Polydipsia, Polyphagia, Polyuria - Hematologic/Lymphatic Hematologic: absent: Easy Bleeding Past Patient History - Infectious Disease Hx of Infectious Diseases: None - Past Medical History & Family History Past Medical History?: Yes - Past Social History Smoking Status: Light Smoker < 10 Cigarettes Daily - CARDIAC Hx Hypercholesterolemia: Yes - NEUROLOGICAL HX Cerebrovascular Accident: Yes (12 YEARS AGO) - MUSCULOSKELETAL/RHEUMATOLOGICAL Hx Falls: No - PSYCHIATRIC Hx Substance Use: No - SURGICAL HISTORY Hx Herniorrhaphy: Yes - ANESTHESIA Hx Anesthesia: Yes Hx Anesthesia Reactions: No Physical Exam - Constitutional Appears: Non-toxic, No Acute Distress - Head Exam Head Exam: ATRAUMATIC, NORMAL INSPECTION - Eye Exam Eye Exam: EOMI Pupil Exam: PERRL - ENT Exam ENT Exam: Mucous Membranes Moist - Respiratory Exam Respiratory Exam: Clear to Auscultation Bilateral, NORMAL BREATHING PATTERN - Cardiovascular Exam Cardiovascular Exam: REGULAR RHYTHM, +S1, +S2 - GI/Abdominal Exam GI & Abdominal Exam: Normal Bowel Sounds, Soft. absent: Tenderness - Extremities Exam Extremities exam: Positive for: normal inspection. Negative for: tenderness - Neurological Exam Neurological exam: Alert, Oriented x3 - Skin Skin Exam: Normal Color, Warm Objective - Vital Signs/Intake and Output Vital Signs (last 24 hours): Temp Pulse Resp BP Pulse Ox 97.9 F 100 H 18 110/79 98 09/19/16 08:00 09/19/16 16:00 09/19/16 16:00 09/19/16 16:00 09/19/16 16:00 Intake and Output: 09/19/16 09/19/16 06:59 18:59 Intake Total 1080 1340 Output Total 2150 1500 Balance -1070 -160 - Medications Medications: Current Medications Aspirin (Ecotrin) 81 mg PO DAILY [facility] Last Admin: 09/19/16 11:57 Dose: 81 mg Clopidogrel Bisulfate (Plavix) 75 mg PO DAILY [facility] Last Admin: 09/19/16 11:57 Dose: 75 mg Enoxaparin Sodium (Lovenox) 70 mg SC Q12H [facility] Last Admin: 09/19/16 17:40 Dose: 70 mg Famotidine (Pepcid) 20 mg PO BID [facility] Last Admin: 09/19/16 17:40 Dose: 20 mg Pneumococcal Polyvalent Vaccine (Pneumovax 23 Vaccine) 0.5 ml IM .ONCE ONE Stop: 09/22/16 10:01 Rosuvastatin Calcium (Crestor) 20 mg PO [facility] Last Admin: 09/18/16 21:32 Dose: 20 mg - Labs Labs: 09/19/16 06:40 09/19/16 06:40 PT 15.0 SECONDS (9.7-12.2) H 09/17/16 14:46 INR 1.3 09/17/16 14:46 APTT 33 SECONDS (21-34) 09/18/16 07:01 Assessment and Plan - Assessment and Plan (Free Text) Assessment: 61 year old male with hx of CAD, HTN, hyperlipidemia, with carotids found to be 99% stenosed bilaterally, and during cath pt was found to have 99% blockage of left circumflex, and 85% stenosis of Proximal RCA. CEA and PCI on Wednesday Plan: Neuro: AAOx3 Hx of CVA (12 years ago) - Sequelae of right sided weakness, expressive aphasia - Passed speech therapy swallow study Hx of bilateral Carotid stenosis - 99% blockage bilaterally - CEA scheduled for next with Dr. Aguilera Cardio: CAD Cardiac cath (09/18/16): - Left circumflex 99% stenosis, Prox RCA 85% - Wednesday PCI @ [place] [facility] 81 mg Daily Plavix 75 mg Daily Crestor 20mg PO HS Normotensive GI: Heart Healthy Diet LFTs: WNL /Renal: Hx of BPH - Pt will bring in home Uroxatral BUN/Cr: WNL, GFR: MSKLTL: f/u PT/OT eval Prophylaxis: DVT: SCDs VTE: Lovenox SC Q12H GI: Pepcid 20mg PO BID
[2016-09-19 18:27] LABS: CHLORIDE 101 mmol/L (98-107); SODIUM 136 mmol/L (132-148)
[2016-09-19 18:30] LABS: BLOOD UREA NITROGEN 14 mg/dL (9-20); CARBON DIOXIDE 21 mmol/L (22-30); GFR AFRICAN-AMERICAN > 60; GLUCOSE,RANDOM 152 mg/dL (75-110)
[2016-09-19 18:31] LABS: CALCIUM 9.2 mg/dl (8.6-10.4)
[2016-09-20] MEDS: Enoxaparin 80 mg Syringe SC SCH ×2 (06:11→18:57)
[2016-09-20] MEDS: ALFUZOSIN HCL 10 MG PO SCH (10:00)
--- NOTE | 2016-09-20 10:49 | CP.CCUPN ---
CCU Subjective - Physician Review Events Since Last Encounter (Free Text): 09/20/16 10:48 Patient is clinical stable. He denies any chest pain or shortness of breath. Blood pressure stable. Eating well. CCU Objective - Vital Signs / Intake & Output Intake and Output (Last 8hrs): Intake & Output 09/19/16 09/20/16 09/20/16 22:59 06:59 14:59 Intake Total 750 850 Output Total 700 1050 Balance 50 -200 Weight 160 lb 5 oz Intake: Intake, IV Amount 0 Left Antecubital 0 Oral 750 850 Output: Urine 700 1050 Urine, Voided 700 1050 Other: # Voids Urine, Voided 1 # Bowel Movements 0 1 - Physical Exam Narrative Physical Exam (Free Text): 09/20/16 10:49 Chest good air entry bilaterally regular heart sound nontender abdomen pedal edema negative Head: Positive for: Atraumatic, Normocephalic Pupils: Positive for: PERRL Extroacular Muscles: Positive for: EOMI Conjunctiva: Positive for: Normal Mouth: Positive for: Moist Mucous Membranes Neck: Positive for: Normal Range of Motion Respiratory/Chest: Positive for: Clear to Auscultation, Good Air Exchange Cardiovascular: Positive for: Regular Rate and Rhythm Abdomen: Positive for: Normal Bowel Sounds. Negative for: Tenderness, Distention Upper Extremity: Positive for: Normal Inspection Lower Extremity: Positive for: Normal Inspection Neurological: Positive for: GCS=15, CN II-XII Intact Psychiatric: Positive for: Alert, Oriented x 3 - Medications Active Medications: Active Medications Generic Name Dose Route Start Last Admin Trade Name Freq PRN Reason Stop Dose Admin Aspirin 81 mg 09/19/16 10:00 09/20/16 10:00 Ecotrin PO 81 mg DAILY [facility] Administration Clopidogrel Bisulfate 75 mg 09/19/16 10:00 09/20/16 10:00 Plavix PO 75 mg DAILY [facility]IA Administration Enoxaparin Sodium 70 mg 09/18/16 18:00 09/20/16 06:11 Lovenox SC 70 mg Q12H [facility] Administration Famotidine 20 mg 09/18/16 18:00 09/20/16 10:00 Pepcid PO 20 mg BID D[facility]IA Administration Home Med 1 unit 09/20/16 10:00 09/20/16 10:00 Home Med PO 1 unit DAILY [facility] Administration Pneumococcal Polyvalent Vaccine 0.5 ml 09/22/16 10:00 Pneumovax 23 Vaccine IM 09/22/16 10:01 .ONCE ONE Rosuvastatin Calcium 20 mg 09/18/16 22:00 09/19/16 22:02 Crestor PO 20 mg HS DUNIA Administration - Patient Studies Lab Studies: Microbiology Studies 09/18/16 14:15 MRSA Culture (Admit) - Final Nose MRSA NOT DETECTED Lab Studies 09/19/16 Range/Units 18:17 Sodium 136 (132-148) mmol/L Potassium 4.0 (3.6-5.2) mmol/L Chloride 101 (98-107) mmol/L Carbon Dioxide 21 L (22-30) mmol/L Anion Gap 18 (10-20) BUN 14 (9-20) mg/dL Creatinine 1.0 (0.8-1.5) MG/DL Est GFR ( Amer) > 60 Est GFR (Non-Af Amer) > 60 Random Glucose 152 H (75-110) mg/dL Calcium 9.2 (8.6-10.4) mg/dl Laboratory Results - last 24 hr 09/19/16 18:17 Sodium 136 Potassium 4.0 Chloride 101 Carbon Dioxide 21 L Anion Gap 18 BUN 14 Creatinine 1.0 Est GFR ( Amer) > 60 Est GFR (Non-Af Amer) > 60 Random Glucose 152 H Calcium 9.2 Review of Systems - Review of Systems All systems: reviewed and no additional remarkable complaints except Review of Systems: Not in any distress. Expressive aphagia. But understanding. Critical Care Progress Note - Nutrition Nutrition: Nutrition Category Date Time Status Heart Healthy Diet [DIET] Diets 09/18/16 Lunch Active Assessment/Plan (1) CVA (cerebral vascular accident) Assessment and plan: Patient with a chronic CVA in the past. Bilateral carotid artery stenosis. Severe coronary artery disease. Patient is scheduled to have the stenting placement for the heart. Followed by patient will go for carotid endarterectomy. Will continue to monitor. We'll follow the patient Current Visit: Yes Status: Acute (2) Carotid stenosis, bilateral Current Visit: Yes Status: Acute (3) HTN (hypertension) Current Visit: Yes Status: Acute
[2016-09-20] MEDS ORDERED: Bacitracin Ointment 30 GM TUBE TOP PRN (14:54)
--- NOTE | 2016-09-20 16:15 | CP.PCM.PN ---
Subjective - Date & Time of Evaluation Date of Evaluation: 09/20/16 Time of Evaluation: 09:00 - Subjective Subjective: [facility] Surgery: Dr. Aguilera Pt S&E this AM. Patient aphasic, but answers yes/no questions. Patient was originally scheduled for carotid endarterectomy on Wednesday, but during cath pt was found to have 99% blockage of left circumflex, and 85% stenosis of Proximal RCA. Scheduled for stent placement x2 this Wednesday. Patient now scheduled for CEA this upcoming . Objective - Vital Signs/Intake and Output Vital Signs (last 24 hours): Temp Pulse Resp BP Pulse Ox 97.8 F 74 18 116/80 98 09/20/16 08:00 09/20/16 04:00 09/20/16 08:00 09/20/16 08:00 09/20/16 08:00 Intake and Output: 09/20/16 09/20/16 06:59 18:59 Intake Total 1200 Output Total 1850 Balance -650 - Medications Medications: Current Medications Aspirin (Ecotrin) 81 mg PO DAILY [facility] Last Admin: 09/20/16 10:00 Dose: 81 mg Bacitracin (Bacitracin) 0 gm TOP BID PRN PRN Reason: Dry skin Stop: 09/23/16 14:55 Clopidogrel Bisulfate (Plavix) 75 mg PO DAILY [facility] Last Admin: 09/20/16 10:00 Dose: 75 mg Enoxaparin Sodium (Lovenox) 70 mg SC Q12H [facility] Last Admin: 09/20/16 06:11 Dose: 70 mg Famotidine (Pepcid) 20 mg PO BID [facility] Last Admin: 09/20/16 10:00 Dose: 20 mg Home Med (Home Med) 1 unit PO DAILY [facility] Last Admin: 09/20/16 10:00 Dose: 1 unit Pneumococcal Polyvalent Vaccine (Pneumovax 23 Vaccine) 0.5 ml IM .ONCE ONE Stop: 09/22/16 10:01 Rosuvastatin Calcium (Crestor) 20 mg PO HS [facility] Last Admin: 09/19/16 22:02 Dose: 20 mg - Labs Labs: 09/19/16 06:40 09/19/16 18:17 PT 15.0 SECONDS (9.7-12.2) H 09/17/16 14:46 INR 1.3 09/17/16 14:46 APTT 33 SECONDS (21-34) 09/18/16 07:01 - Constitutional Appears: No Acute Distress - Eye Exam Eye Exam: Normal appearance - Respiratory Exam Respiratory Exam: NORMAL BREATHING PATTERN - Cardiovascular Exam Cardiovascular Exam: +S1, +S2 - GI/Abdominal Exam GI & Abdominal Exam: Soft - Neurological Exam Neurological Exam: Alert, Awake - Psychiatric Exam Psychiatric exam: Normal Mood - Skin Skin Exam: Normal Color, Warm Assessment and Plan - Assessment and Plan (Free Text) Assessment: 61M w/ B/L carotid artery stenosis s/p L CVA. Scheduled for PCI Wednesday Planning for L CEA this D/W Dr. Aguilera
--- NOTE | 2016-09-20 20:39 | CP.PCM.PN ---
Subjective - Date & Time of Evaluation Date of Evaluation: 09/20/16 Time of Evaluation: 12:30 - Subjective Subjective: Patient seen and evaluated Denies chest pain and dyspnea Patient for PCI tomorrow Review of Systems - Review of Systems Systems not reviewed;Unavailable: Language Barrier (Pt aphasic from past stroke) - Constitutional Constitutional: absent: Chills, Fever - EENT Eyes: absent: Change in Vision Ears: absent: Decreased Hearing - Cardiovascular Cardiovascular: Dyspnea on Exertion (with 'long walks'). absent: Chest Pain, Chest Pain at Rest, Dyspnea - Respiratory Respiratory: absent: Cough - Gastrointestinal Gastrointestinal: absent: Abdominal Pain, Nausea, Vomiting - Genitourinary Genitourinary: absent: Dysuria - Musculoskeletal Musculoskeletal: absent: Numbness, Tingling Additional comments: contracture of right side, sequelae of previous stroke - Integumentary Integumentary: absent: Swelling - Psychiatric Psychiatric: absent: Anxiety, Depression - Endocrine Endocrine: absent: Fatigue, Polydipsia, Polyphagia, Polyuria - Hematologic/Lymphatic Hematologic: absent: Easy Bleeding Past Patient History - Infectious Disease Hx of Infectious Diseases: None - Past Medical History & Family History Past Medical History?: Yes - Past Social History Smoking Status: Light Smoker < 10 Cigarettes Daily - CARDIAC Hx Hypercholesterolemia: Yes - NEUROLOGICAL HX Cerebrovascular Accident: Yes (12 YEARS AGO) - MUSCULOSKELETAL/RHEUMATOLOGICAL Hx Falls: No - PSYCHIATRIC Hx Substance Use: No - SURGICAL HISTORY Hx Herniorrhaphy: Yes - ANESTHESIA Hx Anesthesia: Yes Hx Anesthesia Reactions: No Physical Exam - Constitutional Appears: Non-toxic, No Acute Distress - Head Exam Head Exam: ATRAUMATIC, NORMAL INSPECTION - Eye Exam Eye Exam: EOMI Pupil Exam: PERRL - ENT Exam ENT Exam: Mucous Membranes Moist - Respiratory Exam Respiratory Exam: Clear to Auscultation Bilateral, NORMAL BREATHING PATTERN - Cardiovascular Exam Cardiovascular Exam: REGULAR RHYTHM, +S1, +S2 - GI/Abdominal Exam GI & Abdominal Exam: Normal Bowel Sounds, Soft. absent: Tenderness - Extremities Exam Extremities exam: Positive for: normal inspection. Negative for: tenderness - Neurological Exam Neurological exam: Alert, Oriented x3 - Skin Skin Exam: Normal Color, Warm Objective - Vital Signs/Intake and Output Vital Signs (last 24 hours): Temp Pulse Resp BP Pulse Ox 97.9 F 98 H 23 116/80 94 L 09/20/16 17:00 09/20/16 18:00 09/20/16 18:00 09/20/16 08:00 09/20/16 18:00 Intake and Output: 09/20/16 09/21/16 18:59 06:59 Intake Total 1660 Output Total 2600 Balance -940 - Medications Medications: Current Medications Aspirin (Ecotrin) 81 mg PO DAILY [facility] Last Admin: 09/20/16 10:00 Dose: 81 mg Bacitracin (Bacitracin) 0 gm TOP BID PRN PRN Reason: Dry skin Stop: 09/23/16 14:55 Last Admin: 09/20/16 18:56 Dose: 1 dose Clopidogrel Bisulfate (Plavix) 75 mg PO DAILY [facility] Last Admin: 09/20/16 10:00 Dose: 75 mg Enoxaparin Sodium (Lovenox) 70 mg SC Q12H [facility] Last Admin: 09/20/16 18:57 Dose: 70 mg Famotidine (Pepcid) 20 mg PO BID [facility] Last Admin: 09/20/16 18:57 Dose: 20 mg Home Med (Home Med) 1 unit PO DAILY [facility] Last Admin: 09/20/16 10:00 Dose: 1 unit Pneumococcal Polyvalent Vaccine (Pneumovax 23 Vaccine) 0.5 ml IM .ONCE ONE Stop: 09/22/16 10:01 Rosuvastatin Calcium (Crestor) 20 mg PO HS [facility] Last Admin: 09/19/16 22:02 Dose: 20 mg - Labs Labs: 09/19/16 06:40 09/19/16 18:17 PT 15.0 SECONDS (9.7-12.2) H 09/17/16 14:46 INR 1.3 09/17/16 14:46 APTT 33 SECONDS (21-34) 09/18/16 07:01 Assessment and Plan - Assessment and Plan (Free Text) Assessment: 61 year old male with hx of CAD, HTN, hyperlipidemia, with carotids found to be 99% stenosed bilaterally, and during cath pt was found to have 99% blockage of left circumflex, and 85% stenosis of Proximal RCA. CEA and PCI tomorrow Plan: Neuro: AAOx3 Hx of CVA (12 years ago) - Sequelae of right sided weakness, expressive aphasia - Passed speech therapy swallow study Hx of bilateral Carotid stenosis - 99% blockage bilaterally - CEA scheduled for next with Dr. Aguilera Cardio: CAD Cardiac cath (09/18/16): - Left circumflex 99% stenosis, Prox RCA 85% - Wednesday PCI @ [facility] ASA 81 mg Daily Plavix 75 mg Daily Crestor 20mg PO HS Normotensive GI: Heart Healthy Diet LFTs: WNL /Renal: Hx of BPH - Pt will bring in home Uroxatral BUN/Cr: WNL, GFR: MSKLTL: f/u PT/OT eval Prophylaxis: DVT: SCDs VTE: Lovenox SC Q12H GI: Pepcid 20mg PO BID
[2016-09-21 06:53] LABS: INR 1.2
[2016-09-21 06:55] LABS: CHLORIDE 99 mmol/L (98-107)
[2016-09-21 06:56] LABS: POTASSIUM 4.1 mmol/L (3.6-5.2); SODIUM 135 mmol/L (132-148)
[2016-09-21 06:57] LABS: HEMATOCRIT 43.6 % (35.0-51.0); MEAN CELL VOLUME 88.3 fL (80.0-94.0); MEAN CORPUSCULAR HEMOGLOBIN 29.3 pg (27.0-31.0); MEAN CORPUSCULAR HGB CONC 33.2 g/dL (33.0-37.0); MEAN PLATELET VOLUME 7.8 fL (7.2-11.7); RED CELL DISTRIBUTION WIDTH 13.5 % (11.5-14.5); WHITE BLOOD COUNT 5.2 K/uL (4.8-10.8)
[2016-09-21 06:58] LABS: GFR AFRICAN-AMERICAN > 60
[2016-09-21 06:59] LABS: BLOOD UREA NITROGEN 17 mg/dL (9-20); CALCIUM 8.8 mg/dl (8.6-10.4); CARBON DIOXIDE 24 mmol/L (22-30); GLUCOSE,RANDOM 102 mg/dL (75-110)
[2016-09-21] MEDS: Enoxaparin 80 mg Syringe SC SCH ×2 (07:13→18:31)
[2016-09-21 08:01] LABS: PHOSPHOROUS 3.8 mg/dL (2.5-4.5)
[2016-09-21 08:02] LABS: MAGNESIUM 2.1 mg/dL (1.6-2.3)
--- NOTE | 2016-09-21 09:32 | CP.CCUPN ---
<Braulio Russ - Last Filed: 09/21/16 10:49> CCU Subjective - Physician Review Subjective (Free Text): 09/21/16 09:50 Pt S&E at bedside. He denies any chest pain or shortness of breath over the weekend. Pt is for PCI intervention today at [facility], with CEA to follow later in the week. Critical Care Time Spent (in minutes): 35 CCU Objective - Vital Signs / Intake & Output Vital Signs (Last 4 hours): Vital Signs Temp Pulse Resp BP Pulse Ox 09/21/16 08:00 97.5 F L 88 18 120/65 100 09/21/16 07:52 89 120/65 93 L 09/21/16 07:00 64 96 09/21/16 06:00 77 19 94 L 09/21/16 05:32 82 18 111/70 94 L Intake and Output (Last 8hrs): Intake & Output 09/20/16 09/21/16 09/21/16 22:59 06:59 14:59 Intake Total 460 250 0 Output Total 750 Balance -290 250 0 Intake: Oral 460 250 0 Output: Urine 750 Urine, Voided 750 - Physical Exam Head: Positive for: Atraumatic, Normocephalic Pupils: Positive for: PERRL Extroacular Muscles: Positive for: EOMI Conjunctiva: Positive for: Normal Mouth: Positive for: Moist Mucous Membranes Neck: Positive for: Normal Range of Motion Respiratory/Chest: Positive for: Clear to Auscultation, Good Air Exchange Cardiovascular: Positive for: Regular Rate and Rhythm Abdomen: Positive for: Normal Bowel Sounds. 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) Neurological: Positive for: GCS=15, CN II-XII Intact Skin: Positive for: Warm, Dry, Other (Shaving cuts noted on neck/left face) Psychiatric: Positive for: Alert, Oriented x 3 - Medications Active Medications: Active Medications Generic Name Dose Route Start Last Admin Trade Name Freq PRN Reason Stop Dose Admin Aspirin 81 mg 09/19/16 10:00 09/21/16 09:19 Ecotrin PO 81 mg DAILY [facility] Administration Bacitracin 0 gm 09/20/16 14:54 04/16/17 18:56 Bacitracin TOP 09/23/16 14:55 1 dose BID PRN Administration Dry skin Clopidogrel Bisulfate 75 mg 09/19/16 10:00 09/21/16 09:19 Plavix PO 75 mg DAILY [facility] Administration Enoxaparin Sodium 70 mg 09/18/16 18:00 09/21/16 07:13 Lovenox SC Not Given Q12H [facility] Famotidine 20 mg 09/18/16 18:00 09/21/16 09:19 Pepcid PO 20 mg BID [facility] Administration Home Med 1 unit 09/20/16 10:00 09/20/16 10:00 Home Med PO 1 unit DAILY [facility] Administration Pneumococcal Polyvalent Vaccine 0.5 ml 09/22/16 10:00 Pneumovax 23 Vaccine IM 09/22/16 10:01 .ONCE ONE Rosuvastatin Calcium 20 mg 09/18/16 22:00 09/20/16 22:33 Crestor PO 20 mg HS [facility] Administration - Patient Studies Lab Studies: Lab Studies 09/21/16 09/21/16 Range/Units 06:41 06:36 WBC 5.2 (4.8-10.8) K/uL RBC 4.93 (4.40-5.90) Mil/uL Hgb 14.5 (12.0-18.0) g/dL Hct 43.6 (35.0-51.0) % MCV 88.3 (80.0-94.0) fL MCH 29.3 (27.0-31.0) pg MCHC 33.2 (33.0-37.0) g/dL RDW 13.5 (11.5-14.5) % Plt Count 146 (130-400) K/uL MPV 7.8 (7.2-11.7) fL PT 13.6 H (9.7-12.2) SECONDS INR 1.2 Sodium 135 (132-148) mmol/L Potassium 4.1 (3.6-5.2) mmol/L Chloride 99 (98-107) mmol/L Carbon Dioxide 24 (22-30) mmol/L Anion Gap 17 (10-20) BUN 17 (9-20) mg/dL Creatinine 0.9 (0.8-1.5) MG/DL Est GFR ( Amer) > 60 Est GFR (Non-Af Amer) > 60 Random Glucose 102 (75-110) mg/dL Calcium 8.8 (8.6-10.4) mg/dl Phosphorus 3.8 (2.5-4.5) mg/dL Magnesium 2.1 (1.6-2.3) mg/dL Laboratory Results - last 24 hr 09/21/16 09/21/16 06:36 06:41 WBC 5.2 RBC 4.93 Hgb 14.5 Hct 43.6 MCV 88.3 MCH 29.3 MCHC 33.2 RDW 13.5 Plt Count 146 MPV 7.8 PT 13.6 H INR 1.2 Sodium 135 Potassium 4.1 Chloride 99 Carbon Dioxide 24 Anion Gap 17 BUN 17 Creatinine 0.9 Est GFR ( Amer) > 60 Est GFR (Non-Af Amer) > 60 Random Glucose 102 Calcium 8.8 Phosphorus 3.8 Magnesium 2.1 Review of Systems - Constitutional Constitutional: absent: Fever, Chills - EENT Eyes: absent: Change in Vision - Cardiovascular Cardiovascular: absent: Chest Pain, Chest Pain at Rest, Dyspnea, Dyspnea on Exertion - Respiratory Respiratory: absent: Dyspnea, Dyspnea on Exertion, Wheezing - Gastrointestinal Gastrointestinal: absent: Abdominal Pain, Nausea, Vomiting - Genitourinary Genitourinary: absent: Change in Urinary Stream, Dysuria - Musculoskeletal Musculoskeletal: Muscle Weakness (chronic finding on right side (sequelae of stroke)). absent: Back Pain - Integumentary Integumentary: Other (bleeding on face 2/2 shaving cut on blood thinners) - Neurological Neurological: Weakness (right sided (sequelae of stroke)) - Psychiatric Psychiatric: absent: Anxiety, Depression - Endocrine Endocrine: absent: Polydipsia, Polyphagia, Polyuria Critical Care Progress Note - Nutrition Nutrition: Nutrition Category Date Time Status NPO Diet [DIET] Diets 09/21/16 Lunch Active Assessment/Plan - Assessment and Plan (Free Text) Assessment: 61 year old male with hx of CAD, HTN, hyperlipidemia, with carotids found to be 99% stenosed bilaterally, and during cath pt was found to have 99% blockage of left circumflex, and 85% stenosis of Proximal RCA. PCI today @ [facility] for . Plan: Neuro: AAOx3 Hx of CVA (12 years ago) - Sequelae of right sided weakness, expressive aphasia - Passed speech therapy swallow study Hx of bilateral Carotid stenosis - 99% blockage bilaterally - CEA scheduled for next with Dr. Aguilera Cardio: CAD Cardiac cath (09/18/16): - Left circumflex 99% stenosis, Prox RCA 85% - Wednesday PCI @ [facility] 81 mg Daily Plavix 75 mg Daily Crestor 20mg PO HS PCI at [facility] today GI: NPO diet LFTs: WNL /Renal: Hx of BPH - Taking home medication: Uroxatral BUN/Cr: WNL MSKLTL: PT eval after pt returns from PCI - hx of right sided weakness, paralysis post CVA 12 years ago Prophylaxis: DVT: SCDs VTE: Lovenox SC Q12H GI: Pepcid 20mg PO BID Patient is clinically stable. <Moreno Fung - Last Filed: 09/21/16 17:21> CCU Objective - Vital Signs / Intake & Output Intake and Output (Last 8hrs): Intake & Output 09/21/16 09/21/16 09/21/16 06:59 14:59 22:59 Intake Total 250 300 Output Total 900 Balance 250 -600 Intake: Oral 250 300 Output: Urine 900 Urine, Voided 900 Other: # Bowel Movements 1 - Medications Active Medications: Active Medications Generic Name Dose Route Start Last Admin Trade Name Freq PRN Reason Stop Dose Admin Aspirin 81 mg 09/19/16 10:00 09/21/16 09:19 Ecotrin PO 81 mg DAILY [facility] Administration Bacitracin 0 gm 09/20/16 14:54 09/20/16 18:56 Bacitracin TOP 09/23/16 14:55 1 dose BID PRN Administration Dry skin Clopidogrel Bisulfate 75 mg 09/19/16 10:00 09/21/16 09:19 Plavix PO 75 mg DAILY [facility] Administration Enoxaparin Sodium 70 mg 09/18/16 18:00 09/21/16 07:13 Lovenox SC Not Given Q12H [facility] Famotidine 20 mg 09/18/16 18:00 09/21/16 09:19 Pepcid PO 20 mg BID [facility] Administration Home Med 1 unit 09/20/16 10:00 09/20/16 10:00 Home Med PO 1 unit DAILY [facility] Administration Pneumococcal Polyvalent Vaccine 0.5 ml 09/22/16 10:00 Pneumovax 23 Vaccine IM 09/22/16 10:01 .ONCE ONE Rosuvastatin Calcium 20 mg 09/18/16 22:00 09/20/16 22:33 Crestor PO 20 mg HS [facility] Administration - Patient Studies Lab Studies: Lab Studies 09/21/16 09/21/16 Range/Units 06:41 06:36 WBC 5.2 (4.8-10.8) K/uL RBC 4.93 (4.40-5.90) Mil/uL Hgb 14.5 (12.0-18.0) g/dL Hct 43.6 (35.0-51.0) % MCV 88.3 (80.0-94.0) fL MCH 29.3 (27.0-31.0) pg MCHC 33.2 (33.0-37.0) g/dL RDW 13.5 (11.5-14.5) % Plt Count 146 (130-400) K/uL MPV 7.8 (7.2-11.7) fL PT 13.6 H (9.7-12.2) SECONDS INR 1.2 Sodium 135 (132-148) mmol/L Potassium 4.1 (3.6-5.2) mmol/L Chloride 99 (98-107) mmol/L Carbon Dioxide 24 (22-30) mmol/L Anion Gap 17 (10-20) BUN 17 (9-20) mg/dL Creatinine 0.9 (0.8-1.5) MG/DL Est GFR ( Amer) > 60 Est GFR (Non-Af Amer) > 60 Random Glucose 102 (75-110) mg/dL Calcium 8.8 (8.6-10.4) mg/dl Phosphorus 3.8 (2.5-4.5) mg/dL Magnesium 2.1 (1.6-2.3) mg/dL Laboratory Results - last 24 hr 09/21/16 09/21/16 06:36 06:41 WBC 5.2 RBC 4.93 Hgb 14.5 Hct 43.6 MCV 88.3 MCH 29.3 MCHC 33.2 RDW 13.5 Plt Count 146 MPV 7.8 PT 13.6 H INR 1.2 Sodium 135 Potassium 4.1 Chloride 99 Carbon Dioxide 24 Anion Gap 17 BUN 17 Creatinine 0.9 Est GFR ( Amer) > 60 Est GFR (Non-Af Amer) > 60 Random Glucose 102 Calcium 8.8 Phosphorus 3.8 Magnesium 2.1 Critical Care Progress Note - Nutrition Nutrition: Nutrition Category Date Time Status NPO Diet [DIET] Diets 09/21/16 Lunch Active Assessment/Plan (1) CVA (cerebral vascular accident) Current Visit: Yes Status: Acute (2) Carotid stenosis, bilateral Current Visit: Yes Status: Acute (3) HTN (hypertension) Current Visit: Yes Status: Acute Attending/Attestation - Attestation I have personally seen and examined this patient.: Yes I have fully participated in the care of the patient.: Yes I have reviewed all pertinent clinical information: Yes Notes (Text): 09/21/16 17:18 Patient today underwent PTCA intervention to RCA in the left circumflex. Patient is doing okay. Still having the sheath in the right groin. Patient will be transferred from the hospital. We will closely monitor the patient today. Possible carotid endarterectomy on .
[2016-09-21] MEDS ORDERED: Sodium Chloride 0.9% 1,000 ML IV SCH (19:00)
--- NOTE | 2016-09-21 19:00 | CP.PCM.PN ---
Subjective - Date & Time of Evaluation Date of Evaluation: 09/21/16 Time of Evaluation: 18:57 - Subjective Subjective: Patient s/p PCI and Drug eluting stent placement of RCA and L Cx Continue ASA, Plavix and Statins Change Lovenox to 40mg SC daily OOB to chair in am IV Fluids Check labs in am Objective - Vital Signs/Intake and Output Vital Signs (last 24 hours): Temp Pulse Resp BP Pulse Ox 97.7 F 84 17 129/94 H 100 09/21/16 18:00 09/21/16 18:45 09/21/16 18:45 09/21/16 18:45 09/21/16 18:27 Intake and Output: 09/21/16 09/21/16 06:59 18:59 Intake Total 250 300 Output Total 1000 Balance 250 -700 - Medications Medications: Current Medications Aspirin (Ecotrin) 81 mg PO DAILY [facility] Last Admin: 09/21/16 09:19 Dose: 81 mg Bacitracin (Bacitracin) 0 gm TOP BID PRN PRN Reason: Dry skin Stop: 09/23/16 14:55 Last Admin: 09/20/16 18:56 Dose: 1 dose Clopidogrel Bisulfate (Plavix) 75 mg PO DAILY [facility] Last Admin: 09/21/16 09:19 Dose: 75 mg Enoxaparin Sodium (Lovenox) 40 mg SC DAILY [facility] Famotidine (Pepcid) 20 mg PO BID [facility] Last Admin: 09/21/16 09:19 Dose: 20 mg Home Med (Home Med) 1 unit PO DAILY [facility] Last Admin: 09/20/16 10:00 Dose: 1 unit Sodium Chloride (Sodium Chloride 0.9%) 1,000 mls @ 70 mls/hr IV .[id number] [facility] Stop: 09/22/16 23:59 Last Admin: 09/21/16 18:56 Dose: 70 mls/hr Pneumococcal Polyvalent Vaccine (Pneumovax 23 Vaccine) 0.5 ml IM .ONCE ONE Stop: 09/22/16 10:01 Rosuvastatin Calcium (Crestor) 20 mg PO HS [facility] Last Admin: 09/20/16 22:33 Dose: 20 mg - Labs Labs: 09/21/16 06:41 09/21/16 06:36 PT 13.6 SECONDS (9.7-12.2) H 09/21/16 06:41 INR 1.2 04/17/17 06:41 APTT 33 SECONDS (21-34) 09/18/16 07:01
[2016-09-21] MEDS: ALFUZOSIN HCL 10 MG PO SCH (22:36)
[2016-09-22 06:44] LABS: CHLORIDE 100 mmol/L (98-107)
[2016-09-22 06:45] LABS: POTASSIUM 4.1 mmol/L (3.6-5.2); SODIUM 137 mmol/L (132-148)
[2016-09-22 06:47] LABS: ALB/GLOB RATIO 1.3 (1.0-2.1); ALKALINE PHOSPHATASE 73 U/L (38-126); AST/SGOT 44 U/L (17-59); BILIRUBIN,TOTAL 1.2 mg/dL (0.2-1.3); BLOOD UREA NITROGEN 18 mg/dL (9-20); CARBON DIOXIDE 27 mmol/L (22-30); GFR AFRICAN-AMERICAN > 60; TOTAL PROTEIN 6.5 g/dL (6.3-8.3)
[2016-09-22 06:48] LABS: ALT/SGPT 61 U/L (21-72); CALCIUM 8.4 mg/dl (8.6-10.4); GLUCOSE,RANDOM 90 mg/dL (75-110); PHOSPHOROUS 3.8 mg/dL (2.5-4.5)
--- NOTE | 2016-09-22 07:08 | CP.PCM.PN ---
Subjective - Date & Time of Evaluation Date of Evaluation: 09/21/16 Time of Evaluation: 07:08 - Subjective Subjective: VASCULAR SURGERY PROGRESS NOTE FOR DR. ROMO Patient seen and examined at bedside in the ICU. He is going for PCI and stent placement today at [facility]. Objective - Vital Signs/Intake and Output Vital Signs (last 24 hours): Temp Pulse Resp BP Pulse Ox 98 F 81 20 120/76 97 09/22/16 04:00 09/22/16 06:00 09/22/16 06:00 09/22/16 06:00 09/22/16 06:00 Intake and Output: 09/22/16 09/22/16 06:59 18:59 Intake Total 1080 Output Total 1000 Balance 80 - Medications Medications: Current Medications Aspirin (Ecotrin) 81 mg PO DAILY [facility] Last Admin: 09/21/16 09:19 Dose: 81 mg Bacitracin (Bacitracin) 0 gm TOP BID PRN PRN Reason: Dry skin Stop: 09/23/16 14:55 Last Admin: 09/20/16 18:56 Dose: 1 dose Clopidogrel Bisulfate (Plavix) 75 mg PO DAILY [facility] Last Admin: 09/21/16 09:19 Dose: 75 mg Enoxaparin Sodium (Lovenox) 40 mg SC DAILY [facility] Famotidine (Pepcid) 20 mg PO BID [facility] Last Admin: 09/21/16 22:36 Dose: 20 mg Home Med (Home Med) 1 unit PO DAILY [facility] Last Admin: 09/21/16 22:36 Dose: 1 unit Sodium Chloride (Sodium Chloride 0.9%) 1,000 mls @ 70 mls/hr IV .[id number] [facility] Stop: 09/22/16 23:59 Last Admin: 09/21/16 18:56 Dose: 70 mls/hr Pneumococcal Polyvalent Vaccine (Pneumovax 23 Vaccine) 0.5 ml IM .ONCE ONE Stop: 09/22/16 10:01 Rosuvastatin Calcium (Crestor) 20 mg PO HS [facility] Last Admin: 09/21/16 22:37 Dose: 20 mg - Labs Labs: 09/21/16 06:41 09/22/16 04:00 PT 13.6 SECONDS (9.7-12.2) H 09/21/16 06:41 INR 1.2 09/21/16 06:41 APTT 33 SECONDS (21-34) 09/18/16 07:01 Assessment and Plan - Assessment and Plan (Free Text) Assessment: 61yo M with bilateral carotid artery stenosis s/p Left CVA - Had PCI and drug eluting stents placed today at [facility] - On ASA, Plavix and Statins per cardiology - Scheduled for left CEA this - Discussed plan with Dr. Ale Duff PGY-2
[2016-09-22 07:09] LABS: BASO % 0.7 % (0.0-2.0); EOS # 0.2 K/uL (0.0-0.7); EOS % 3.9 % (0.0-4.0); HEMATOCRIT 42.7 % (35.0-51.0); LYMPH # 1.1 K/uL (1.0-4.3); LYMPH % 20.8 % (20.0-40.0); MEAN CELL VOLUME 88.2 fL (80.0-94.0); MEAN CORPUSCULAR HEMOGLOBIN 29.7 pg (27.0-31.0); MEAN CORPUSCULAR HGB CONC 33.7 g/dL (33.0-37.0); MEAN PLATELET VOLUME 7.9 fL (7.2-11.7); MONO # 0.5 K/uL (0.0-0.8); MONO % 10.1 % (0.0-10.0); NRBC % 0.2 % (0.0-2.0); RED CELL DISTRIBUTION WIDTH 13.3 % (11.5-14.5); WHITE BLOOD COUNT 5.2 K/uL (4.8-10.8)
[2016-09-22] MEDS ORDERED: Pneumococcal 23-Valent Vaccine IM ONE ×2 (10:00→13:00)
[2016-09-22] MEDS: Enoxaparin 40 mg Syringe SC SCH (10:09)
[2016-09-22] MEDS: ALFUZOSIN HCL 10 MG PO SCH (10:10)
--- NOTE | 2016-09-22 12:12 | CP.PCM.PN ---
Subjective - Date & Time of Evaluation Date of Evaluation: 09/22/16 Time of Evaluation: 07:45 - Subjective Subjective: VASCULAR SURGERY PROGRESS NOTE FOR DR. ROMO Patient seen and examined at bedside in the ICU. No complaints. Tolerating diet. Underwent PCI w/ drug eluting stent yesterday in [place]. Objective - Vital Signs/Intake and Output Vital Signs (last 24 hours): Temp Pulse Resp BP Pulse Ox 97.9 F 81 18 122/72 97 09/22/16 08:00 09/22/16 08:00 09/22/16 08:00 09/22/16 08:00 09/22/16 08:00 Intake and Output: 09/22/16 09/22/16 06:59 18:59 Intake Total 1080 550 Output Total 1000 300 Balance 80 250 - Medications Medications: Current Medications Aspirin (Ecotrin) 81 mg PO DAILY [facility] Last Admin: 09/22/16 10:10 Dose: 81 mg Bacitracin (Bacitracin) 0 gm TOP BID PRN PRN Reason: Dry skin Stop: 09/23/16 14:55 Last Admin: 09/20/16 18:56 Dose: 1 dose Clopidogrel Bisulfate (Plavix) 75 mg PO DAILY [facility] Last Admin: 09/22/16 10:10 Dose: 75 mg Enoxaparin Sodium (Lovenox) 40 mg SC DAILY [facility] Last Admin: 09/22/16 10:09 Dose: 40 mg Famotidine (Pepcid) 20 mg PO BID [facility] Last Admin: 09/22/16 10:10 Dose: 20 mg Home Med (Home Med) 1 unit PO DAILY [facility] Last Admin: 09/22/16 10:10 Dose: 1 unit Sodium Chloride (Sodium Chloride 0.9%) 1,000 mls @ 70 mls/hr IV .[id number] [facility] Stop: 09/22/16 23:59 Last Admin: 09/21/16 18:56 Dose: 70 mls/hr Rosuvastatin Calcium (Crestor) 20 mg PO HS [facility] Last Admin: 09/21/16 22:37 Dose: 20 mg - Labs Labs: 09/22/16 06:35 09/22/16 04:00 PT 13.6 SECONDS (9.7-12.2) H 09/21/16 06:41 INR 1.2 09/21/16 06:41 APTT 33 SECONDS (21-34) 09/18/16 07:01 - Constitutional Appears: Non-toxic, No Acute Distress - ENT Exam ENT Exam: Mucous Membranes Moist - Respiratory Exam Respiratory Exam: NORMAL BREATHING PATTERN - Cardiovascular Exam Cardiovascular Exam: absent: Tachycardia - Neurological Exam Neurological Exam: Alert, Awake - Psychiatric Exam Psychiatric exam: Normal Mood - Skin Skin Exam: Normal Color, Warm Assessment and Plan - Assessment and Plan (Free Text) Assessment: 61yo M with bilateral carotid artery stenosis s/p Left CVA - S/p PCI and drug eluting stents placement - On ASA, Plavix and Statins per cardiology - Scheduled for left CEA this - Further recs per Dr. Romo
--- NOTE | 2016-09-22 13:53 | CP.CCUPN ---
<Braulio Russ - Last Filed: 09/22/16 13:50> CCU Subjective - Physician Review Subjective (Free Text): 09/21/16 09:50 Pt seen and examined at bedside. Pt is s/p PCI intervention yesterday at [facility]. He denies any complaints at this time. Pt is tolerating diet and is working with physical therapy. He is scheduled for CEA this with Dr. Aguilera. Order for transfer to telemetry placed. Critical Care Time Spent (in minutes): 30 CCU Objective - Vital Signs / Intake & Output Vital Signs (Last 4 hours): Vital Signs Temp Pulse Resp BP Pulse Ox 09/22/16 12:00 98.0 F 83 18 109/70 96 Intake and Output (Last 8hrs): Intake & Output 09/21/16 09/22/16 09/22/16 22:59 06:59 14:59 Intake Total 520 560 910 Output Total 700 400 400 Balance -180 160 510 Weight 162 lb Intake: Intake, IV Amount 280 560 70 Left Antecubital 280 560 70 Oral 240 840 Output: Urine 700 400 400 Urine, Voided 700 400 400 - Physical Exam Head: Positive for: Atraumatic, Normocephalic Pupils: Positive for: PERRL Extroacular Muscles: Positive for: EOMI Conjunctiva: Positive for: Normal Mouth: Positive for: Moist Mucous Membranes Neck: Positive for: Normal Range of Motion Respiratory/Chest: Positive for: Clear to Auscultation, Good Air Exchange Cardiovascular: Positive for: Regular Rate and Rhythm Abdomen: Positive for: Normal Bowel Sounds. 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) Neurological: Positive for: GCS=15, CN II-XII Intact, Other (Residual weakness on right side) Skin: Positive for: Warm, Dry, Other (Shaving cuts noted on neck/left face) Psychiatric: Positive for: Alert, Oriented x 3 - Medications Active Medications: Active Medications Generic Name Dose Route Start Last Admin Trade Name Freq PRN Reason Stop Dose Admin Aspirin 81 mg 09/19/16 10:00 09/22/16 10:10 Ecotrin PO 81 mg DAILY DUNIA Administration Bacitracin 0 gm 09/20/16 14:54 09/20/16 18:56 Bacitracin TOP 09/23/16 14:55 1 dose BID PRN Administration Dry skin Clopidogrel Bisulfate 75 mg 09/19/16 10:00 09/22/16 10:10 Plavix PO 75 mg DAILY DUNIA Administration Enoxaparin Sodium 40 mg 09/22/16 10:00 09/22/16 10:09 Lovenox SC 40 mg DAILY DUNIA Administration Famotidine 20 mg 09/18/16 18:00 09/22/16 10:10 Pepcid PO 20 mg BID DUNIA Administration Home Med 1 unit 09/20/16 10:00 09/22/16 10:10 Home Med PO 1 unit DAILY DUNIA Administration Rosuvastatin Calcium 20 mg 09/18/16 22:00 09/21/16 22:37 Crestor PO 20 mg HS DUNIA Administration - Patient Studies Lab Studies: Lab Studies 09/22/16 09/22/16 Range/Units 06:35 04:00 WBC 5.2 (4.8-10.8) K/uL RBC 4.85 (4.40-5.90) Mil/uL Hgb 14.4 (12.0-18.0) g/dL Hct 42.7 (35.0-51.0) % MCV 88.2 (80.0-94.0) fL MCH 29.7 (27.0-31.0) pg MCHC 33.7 (33.0-37.0) g/dL RDW 13.3 (11.5-14.5) % Plt Count 125 L D (130-400) K/uL MPV 7.9 (7.2-11.7) fL Neut % (Auto) 64.5 (50.0-75.0) % Lymph % (Auto) 20.8 (20.0-40.0) % [place] % (Auto) 10.1 H (0.0-10.0) % Eos % (Auto) 3.9 (0.0-4.0) % Baso % (Auto) 0.7 (0.0-2.0) % Neut # 3.4 (1.8-7.0) K/uL Lymph # 1.1 (1.0-4.3) K/uL [place] # 0.5 (0.0-0.8) K/uL Eos # 0.2 (0.0-0.7) K/uL Baso # 0.0 (0.0-0.2) K/uL Sodium 137 (132-148) mmol/L Potassium 4.1 (3.6-5.2) mmol/L Chloride 100 (98-107) mmol/L Carbon Dioxide 27 (22-30) mmol/L Anion Gap 14 (10-20) BUN 18 (9-20) mg/dL Creatinine 0.9 (0.8-1.5) MG/DL Est GFR ( Amer) > 60 Est GFR (Non-Af Amer) > 60 Random Glucose 90 (75-110) mg/dL Calcium 8.4 L (8.6-10.4) mg/dl Phosphorus 3.8 (2.5-4.5) mg/dL Magnesium 2.0 (1.6-2.3) mg/dL Total Bilirubin 1.2 (0.2-1.3) mg/dL AST 44 (17-59) U/L ALT 61 (21-72) U/L Alkaline Phosphatase 73 (38-126) U/L Total Protein 6.5 (6.3-8.3) g/dL Albumin 3.7 (3.5-5.0) g/dL Globulin 2.8 (2.2-3.9) gm/dL Albumin/Globulin Ratio 1.3 (1.0-2.1) Laboratory Results - last 24 hr 09/22/16 09/22/16 04:00 06:35 WBC 5.2 RBC 4.85 Hgb 14.4 Hct 42.7 MCV 88.2 MCH 29.7 MCHC 33.7 RDW 13.3 Plt Count 125 L D MPV 7.9 Neut % (Auto) 64.5 Lymph % (Auto) 20.8 [place] % (Auto) 10.1 H Eos % (Auto) 3.9 Baso % (Auto) 0.7 Neut # 3.4 Lymph # 1.1 [place] # 0.5 Eos # 0.2 Baso # 0.0 Sodium 137 Potassium 4.1 Chloride 100 Carbon Dioxide 27 Anion Gap 14 BUN 18 Creatinine 0.9 Est GFR ( Amer) > 60 Est GFR (Non-Af Amer) > 60 Random Glucose 90 Calcium 8.4 L Phosphorus 3.8 Magnesium 2.0 Total Bilirubin 1.2 AST 44 ALT 61 Alkaline Phosphatase 73 Total Protein 6.5 Albumin 3.7 Globulin 2.8 Albumin/Globulin Ratio 1.3 Review of Systems - Constitutional Constitutional: absent: Fever, Chills Additional comments: Expressive aphasia is result of CVA twelve years prior - EENT Eyes: absent: Change in Vision Ears: absent: Decreased Hearing - Cardiovascular Cardiovascular: absent: Chest Pain, Chest Pain at Rest, Dyspnea - Respiratory Respiratory: absent: Cough, Dyspnea on Exertion - Gastrointestinal Gastrointestinal: absent: Abdominal Pain, Nausea, Vomiting - Genitourinary Genitourinary: absent: Dysuria - Neurological Neurological: absent: Tingling, Weakness Critical Care Progress Note - Nutrition Nutrition: Nutrition Category Date Time Status Heart Healthy Diet [DIET] Diets 09/21/16 Dinner Active Assessment/Plan - Assessment and Plan (Free Text) Assessment: 61 year old male with hx of CAD, HTN, hyperlipidemia, with carotids found to be 99% stenosed bilaterally, and during cath pt was found to have 99% blockage of left circumflex, and 85% stenosis of Proximal RCA. PCI intervention yesterday @ [place]. Drug eluting stents were placed in the RCA and left circumflex. CEA tentatively schedule for with Dr. Aguilera. Plan: Neuro: AAOx3 Hx of CVA (12 years ago) - Sequelae of right sided weakness, expressive aphasia - Passed speech therapy swallow study Cardio: CAD Cardiac cath (09/18/16): - Left circumflex 99% stenosis, Prox RCA 85% - Wednesday PCI @ [place] Hx of bilateral Carotid stenosis - 99% blockage bilaterally - CEA tentatively scheduled for with Dr. Aguilera PCI intervention (09/21/16) - 2 drug eluting stents placed in RCA in Left Circumflex ASA 81 mg Daily Plavix 75 mg Daily Crestor 20mg PO HS GI: Heart Healthy Diet LFTs: WNL /Renal: Hx of BPH - Taking home medication: Uroxatral BUN/Cr: WNL MSKLTL: PT eval after pt returns from PCI - hx of right sided weakness, paralysis post CVA 12 years ago Prophylaxis: DVT: SCDs VTE: Lovenox 40mg SC Daily GI: Pepcid 20mg PO BID Pt clinically stable s/p PCI intervention. Transfer order entered to telemetry. D/W Dr. Duglas Russ, PGY1 <Hunter Ardon S - Last Filed: 09/22/16 16:50> CCU Objective - Vital Signs / Intake & Output Intake and Output (Last 8hrs): Intake & Output 09/22/16 09/22/16 09/22/16 06:59 14:59 22:59 Intake Total 560 910 Output Total 400 400 Balance 160 510 Weight 162 lb Intake: Intake, IV Amount 560 70 Left Antecubital 560 70 Oral 840 Output: Urine 400 400 Urine, Voided 400 400 - Medications Active Medications: Active Medications Generic Name Dose Route Start Last Admin Trade Name Freq PRN Reason Stop Dose Admin Aspirin 81 mg 09/19/16 10:00 09/22/16 10:10 Ecotrin PO 81 mg DAILY DUNIA Administration Bacitracin 0 gm 09/20/16 14:54 09/20/16 18:56 Bacitracin TOP 09/23/16 14:55 1 dose BID PRN Administration Dry skin Clopidogrel Bisulfate 75 mg 09/19/16 10:00 09/22/16 10:10 Plavix PO 75 mg DAILY DUNIA Administration Enoxaparin Sodium 40 mg 09/22/16 10:00 09/22/16 10:09 Lovenox SC 40 mg DAILY DUNIA Administration Famotidine 20 mg 09/18/16 18:00 09/22/16 10:10 Pepcid PO 20 mg BID DUNIA Administration Home Med 1 unit 09/20/16 10:00 09/22/16 10:10 Home Med PO 1 unit DAILY DUNIA Administration Rosuvastatin Calcium 20 mg 09/18/16 22:00 09/21/16 22:37 Crestor PO 20 mg HS DUNIA Administration - Patient Studies Lab Studies: Lab Studies 09/22/16 09/22/16 Range/Units 06:35 04:00 WBC 5.2 (4.8-10.8) K/uL RBC 4.85 (4.40-5.90) Mil/uL Hgb 14.4 (12.0-18.0) g/dL Hct 42.7 (35.0-51.0) % MCV 88.2 (80.0-94.0) fL MCH 29.7 (27.0-31.0) pg MCHC 33.7 (33.0-37.0) g/dL RDW 13.3 (11.5-14.5) % Plt Count 125 L D (130-400) K/uL MPV 7.9 (7.2-11.7) fL Neut % (Auto) 64.5 (50.0-75.0) % Lymph % (Auto) 20.8 (20.0-40.0) % [place] % (Auto) 10.1 H (0.0-10.0) % Eos % (Auto) 3.9 (0.0-4.0) % Baso % (Auto) 0.7 (0.0-2.0) % Neut # 3.4 (1.8-7.0) K/uL Lymph # 1.1 (1.0-4.3) K/uL [place] # 0.5 (0.0-0.8) K/uL Eos # 0.2 (0.0-0.7) K/uL Baso # 0.0 (0.0-0.2) K/uL Sodium 137 (132-148) mmol/L Potassium 4.1 (3.6-5.2) mmol/L Chloride 100 (98-107) mmol/L Carbon Dioxide 27 (22-30) mmol/L Anion Gap 14 (10-20) BUN 18 (9-20) mg/dL Creatinine 0.9 (0.8-1.5) MG/DL Est GFR ( Amer) > 60 Est GFR (Non-Af Amer) > 60 Random Glucose 90 (75-110) mg/dL Calcium 8.4 L (8.6-10.4) mg/dl Phosphorus 3.8 (2.5-4.5) mg/dL Magnesium 2.0 (1.6-2.3) mg/dL Total Bilirubin 1.2 (0.2-1.3) mg/dL AST 44 (17-59) U/L ALT 61 (21-72) U/L Alkaline Phosphatase 73 (38-126) U/L Total Protein 6.5 (6.3-8.3) g/dL Albumin 3.7 (3.5-5.0) g/dL Globulin 2.8 (2.2-3.9) gm/dL Albumin/Globulin Ratio 1.3 (1.0-2.1) Laboratory Results - last 24 hr 09/22/16 09/22/16 04:00 06:35 WBC 5.2 RBC 4.85 Hgb 14.4 Hct 42.7 MCV 88.2 MCH 29.7 MCHC 33.7 RDW 13.3 Plt Count 125 L D MPV 7.9 Neut % (Auto) 64.5 Lymph % (Auto) 20.8 [place] % (Auto) 10.1 H Eos % (Auto) 3.9 Baso % (Auto) 0.7 Neut # 3.4 Lymph # 1.1 [place] # 0.5 Eos # 0.2 Baso # 0.0 Sodium 137 Potassium 4.1 Chloride 100 Carbon Dioxide 27 Anion Gap 14 BUN 18 Creatinine 0.9 Est GFR ( Amer) > 60 Est GFR (Non-Af Amer) > 60 Random Glucose 90 Calcium 8.4 L Phosphorus 3.8 Magnesium 2.0 Total Bilirubin 1.2 AST 44 ALT 61 Alkaline Phosphatase 73 Total Protein 6.5 Albumin 3.7 Globulin 2.8 Albumin/Globulin Ratio 1.3 Critical Care Progress Note - Nutrition Nutrition: Nutrition Category Date Time Status Heart Healthy Diet [DIET] Diets 09/21/16 Dinner Active Attending/Attestation - Attestation I have personally seen and examined this patient.: Yes I have fully participated in the care of the patient.: Yes I have reviewed all pertinent clinical information: Yes Notes (Text): 09/22/16 16:49 Patient seen and examined in the intensive care unit. Case discussed with house staff in the morning rounds. Pt is s/p PCI intervention yesterday at [facility]. He denies any complaints at this time. Pt is tolerating diet and is working with physical therapy. He is scheduled for CEA this with Dr. Aguilera
--- NOTE | 2016-09-22 21:06 | PN ---
DATE: 09/22/2016 NEUROLOGICAL PROBLEM: Status post left MCA stroke with right hemiparesis with new onset of dizziness, possibly posterior cerebral artery ischemic process. Coronary artery disease. PHYSICAL EXAMINATION: VITAL SIGNS: Blood pressure 122/72, mean arterial pressure of 88, respiratory rate 18, temperature 97.9, pulse rate 84, regular. The patient did undergo stent placement at [facility]. The patient is more awake, alert, oriented to person, place, and time. Speech is impaired, which is unchanged, presenting with motor aphasia, right side spastic hemiparesis which is unchanged. The patient did have some facial abrasion from his shaving. This is probably secondary to his antiplatelet medication and Lovenox. The patient is recommended to have followup with vascular surgeon for possible carotid endarterectomy. The patient's condition also discussed with his daughter and explained his neurological problem over the phone. Prashant Kebede MD cc: [id number] TT: 09/22/2016 21:06:16 Confirmation # [id number] Dictation # [id number] michael SANDHU
--- NOTE | 2016-09-22 21:06 | CP.PCM.PN ---
Subjective - Date & Time of Evaluation Date of Evaluation: 09/22/16 Time of Evaluation: 10:15 - Subjective Subjective: Patient seen and evaluated Comfortable Denies chest pain and dyspnea Review of Systems - Review of Systems Systems not reviewed;Unavailable: Language Barrier (Pt aphasic from past stroke) - Constitutional Constitutional: absent: Chills, Fever - EENT Eyes: absent: Change in Vision Ears: absent: Decreased Hearing - Cardiovascular Cardiovascular: absent: Chest Pain, Chest Pain at Rest, Dyspnea - Respiratory Respiratory: absent: Cough - Gastrointestinal Gastrointestinal: absent: Abdominal Pain, Nausea, Vomiting - Genitourinary Genitourinary: absent: Dysuria - Musculoskeletal Musculoskeletal: absent: Numbness, Tingling Additional comments: contracture of right side, sequelae of previous stroke - Integumentary Integumentary: absent: Swelling - Psychiatric Psychiatric: absent: Anxiety, Depression - Endocrine Endocrine: absent: Fatigue, Polydipsia, Polyphagia, Polyuria - Hematologic/Lymphatic Hematologic: absent: Easy Bleeding Physical Exam - Constitutional Appears: Non-toxic, No Acute Distress - Head Exam Head Exam: ATRAUMATIC, NORMAL INSPECTION - Eye Exam Eye Exam: EOMI Pupil Exam: PERRL - ENT Exam ENT Exam: Mucous Membranes Moist - Respiratory Exam Respiratory Exam: Clear to Auscultation Bilateral, NORMAL BREATHING PATTERN - Cardiovascular Exam Cardiovascular Exam: REGULAR RHYTHM, +S1, +S2 - GI/Abdominal Exam GI & Abdominal Exam: Normal Bowel Sounds, Soft. absent: Tenderness - Extremities Exam Extremities exam: Positive for: normal inspection. Negative for: tenderness - Neurological Exam Neurological exam: Alert, Oriented x3 - Skin Skin Exam: Normal Color, Warm Objective - Vital Signs/Intake and Output Vital Signs (last 24 hours): Temp Pulse Resp BP Pulse Ox 98 F 95 H 20 102/67 97 09/22/16 16:00 09/22/16 16:00 09/22/16 16:00 09/22/16 16:00 09/22/16 16:00 Intake and Output: 09/22/16 09/23/16 18:59 06:59 Intake Total 1390 Output Total 600 Balance 790 - Medications Medications: Current Medications Aspirin (Ecotrin) 81 mg PO DAILY DUNIA Last Admin: 09/22/16 10:10 Dose: 81 mg Bacitracin (Bacitracin) 0 gm TOP BID PRN PRN Reason: Dry skin Stop: 09/23/16 14:55 Last Admin: 09/20/16 18:56 Dose: 1 dose Clopidogrel Bisulfate (Plavix) 75 mg PO DAILY [facility] Last Admin: 09/22/16 10:10 Dose: 75 mg Enoxaparin Sodium (Lovenox) 40 mg SC DAILY [facility] Last Admin: 09/22/16 10:09 Dose: 40 mg Famotidine (Pepcid) 20 mg PO BID [facility] Last Admin: 09/22/16 17:45 Dose: 20 mg Home Med (Home Med) 1 unit PO DAILY [facility] Last Admin: 09/22/16 10:10 Dose: 1 unit Rosuvastatin Calcium (Crestor) 20 mg PO HS [facility] Last Admin: 09/21/16 22:37 Dose: 20 mg - Labs Labs: 09/22/16 06:35 09/22/16 04:00 PT 13.6 SECONDS (9.7-12.2) H 09/21/16 06:41 INR 1.2 09/21/16 06:41 APTT 33 SECONDS (21-34) 09/18/16 07:01 Assessment and Plan - Assessment and Plan (Free Text) Assessment: Neuro: AAOx3 Hx of CVA (12 years ago) - Sequelae of right sided weakness, expressive aphasia - Passed speech therapy swallow study Hx of bilateral Carotid stenosis - 99% blockage bilaterally - CEA scheduled for next with Dr. Aguilera Cardio: CAD S/P PCI of RCA and L Cx ASA 81 mg Daily Plavix 75 mg Daily Crestor 20mg PO HS Normotensive GI: Heart Healthy Diet LFTs: WNL /Renal: Hx of BPH - Pt will bring in home Uroxatral BUN/Cr: WNL, GFR: MSKLTL: f/u PT/OT eval Prophylaxis: DVT: SCDs VTE: Lovenox SC GI: Pepcid 20mg PO BID
[2016-09-23 06:56] LABS: BASO % 0.7 % (0.0-2.0); EOS # 0.2 K/uL (0.0-0.7); EOS % 4.4 % (0.0-4.0); HEMATOCRIT 43.8 % (35.0-51.0); LYMPH # 1.3 K/uL (1.0-4.3); LYMPH % 23.7 % (20.0-40.0); MEAN CELL VOLUME 88.8 fL (80.0-94.0); MEAN CORPUSCULAR HEMOGLOBIN 29.7 pg (27.0-31.0); MEAN CORPUSCULAR HGB CONC 33.5 g/dL (33.0-37.0); MEAN PLATELET VOLUME 7.9 fL (7.2-11.7); MONO # 0.6 K/uL (0.0-0.8); MONO % 10.6 % (0.0-10.0); NRBC % 0.1 % (0.0-2.0); RED CELL DISTRIBUTION WIDTH 13.6 % (11.5-14.5); WHITE BLOOD COUNT 5.5 K/uL (4.8-10.8)
[2016-09-23 07:21] LABS: CHLORIDE 102 mmol/L (98-107); POTASSIUM 4.4 mmol/L (3.6-5.2); SODIUM 137 mmol/L (132-148)
[2016-09-23 07:23] LABS: ALB/GLOB RATIO 1.5 (1.0-2.1); AST/SGOT 40 U/L (17-59); BILIRUBIN,TOTAL 1.1 mg/dL (0.2-1.3); CARBON DIOXIDE 23 mmol/L (22-30); GFR AFRICAN-AMERICAN > 60; TOTAL PROTEIN 6.9 g/dL (6.3-8.3)
[2016-09-23 07:24] LABS: ALKALINE PHOSPHATASE 72 U/L (38-126); ALT/SGPT 56 U/L (21-72); BLOOD UREA NITROGEN 15 mg/dL (9-20); CALCIUM 8.8 mg/dl (8.6-10.4); GLUCOSE,RANDOM 102 mg/dL (75-110); MAGNESIUM 2.1 mg/dL (1.6-2.3); PHOSPHOROUS 3.7 mg/dL (2.5-4.5)
[2016-09-23] MEDS: Enoxaparin 40 mg Syringe SC SCH (09:17)
[2016-09-23] MEDS: ALFUZOSIN HCL 10 MG PO SCH (09:17)
--- NOTE | 2016-09-23 12:42 | CP.PCM.PN ---
Subjective - Date & Time of Evaluation Date of Evaluation: 09/23/16 Time of Evaluation: 12:41 - Subjective Subjective: for left cea tomorrow all aware of plans and risks on asa and plavix which increase risk of jacinta operative bleeding and decrease risk of stroke Objective - Vital Signs/Intake and Output Vital Signs (last 24 hours): Temp Pulse Resp BP Pulse Ox 97.7 F 82 17 96/50 L 96 09/23/16 08:00 09/23/16 08:00 09/23/16 08:00 09/23/16 04:53 09/23/16 08:00 Intake and Output: 09/23/16 09/23/16 06:59 18:59 Intake Total 300 Output Total 900 Balance -600 - Medications Medications: Current Medications Aspirin (Ecotrin) 81 mg PO DAILY [facility] Last Admin: 09/23/16 09:17 Dose: 81 mg Bacitracin (Bacitracin) 0 gm TOP BID PRN PRN Reason: Dry skin Stop: 09/23/16 14:55 Last Admin: 09/20/16 18:56 Dose: 1 dose Clopidogrel Bisulfate (Plavix) 75 mg PO DAILY [facility] Last Admin: 09/23/16 09:17 Dose: 75 mg Enoxaparin Sodium (Lovenox) 40 mg SC DAILY [facility] Last Admin: 09/23/16 09:17 Dose: 40 mg Famotidine (Pepcid) 20 mg PO BID [facility] Last Admin: 09/23/16 09:17 Dose: 20 mg Home Med (Home Med) 1 unit PO DAILY [facility] Last Admin: 09/23/16 09:17 Dose: 1 unit Rosuvastatin Calcium (Crestor) 20 mg PO [facility] Last Admin: 09/22/16 22:00 Dose: 20 mg - Labs Labs: 09/23/16 06:43 09/23/16 06:43 PT 13.6 SECONDS (9.7-12.2) H 09/21/16 06:41 INR 1.2 09/21/16 06:41 APTT 33 SECONDS (21-34) 09/18/16 07:01
--- NOTE | 2016-09-23 23:05 | CP.PCM.PN ---
Subjective - Date & Time of Evaluation Date of Evaluation: 09/23/16 Time of Evaluation: 08:00 - Subjective Subjective: Patient without cardiac events For CEA tomorrow Objective - Vital Signs/Intake and Output Vital Signs (last 24 hours): Temp Pulse Resp BP Pulse Ox 97.7 F 86 17 96/50 L 96 09/23/16 16:00 09/23/16 16:00 09/23/16 08:00 09/23/16 04:53 09/23/16 08:00 - Medications Medications: Current Medications Aspirin (Ecotrin) 81 mg PO DAILY [facility] Last Admin: 09/23/16 09:17 Dose: 81 mg Clopidogrel Bisulfate (Plavix) 75 mg PO DAILY [facility] Last Admin: 09/23/16 09:17 Dose: 75 mg Enoxaparin Sodium (Lovenox) 40 mg SC DAILY [facility] Last Admin: 09/23/16 09:17 Dose: 40 mg Famotidine (Pepcid) 20 mg PO BID [facility] Last Admin: 09/23/16 17:08 Dose: 20 mg Home Med (Home Med) 1 unit PO DAILY [facility] Last Admin: 09/23/16 09:17 Dose: 1 unit Rosuvastatin Calcium (Crestor) 20 mg PO HS [facility] Last Admin: 09/23/16 22:01 Dose: 20 mg - Labs Labs: 09/23/16 06:43 09/23/16 06:43 PT 13.6 SECONDS (9.7-12.2) H 09/21/16 06:41 INR 1.2 09/21/16 06:41 APTT 33 SECONDS (21-34) 09/18/16 07:01
[2016-09-24] MEDS ORDERED: Midazolam 2 MG/2 ML VIAL ONE (07:45)
[2016-09-24] MEDS ORDERED: Propofol 10 mg/ml Inj (20 ML) ONE (07:45)
[2016-09-24] MEDS ORDERED: HEPARIN-NS 5,000 UNITS/500 ML 500 ML IV ONE (07:48)
[2016-09-24] MEDS ORDERED: ceFAZolin 1 gm FROZEN Premix 50 ML IVPB ONE (07:48)
--- NOTE | 2016-09-24 07:51 | PN ---
DATE: 09/24/2016 NEUROLOGICAL PROBLEM: Bilateral symptomatic carotid artery disease, left more than right side. Stat us post coronary artery stent placement. PHYSICAL EXAMINATION: VITAL SIGNS: Blood pressure 140/78, pulse rate irregular; respiratory rate 16, temperature afebrile. NEUROLOGIC: The patient is examined in the presence of his as well as his daughter. More awake , more alert. Speech aphasic (motor aphasia). Spastic right hemiparesis. The neuro examination is unchanged to compare with my previous examination. The patient is scheduled to have left carotid endarterectomy today, and 2 weeks following this the manuel oshea is going to have a carotid endarterectomy on his right side. The patient is currently on blood thinners. Risk of bleeding has been discussed with the patient and family members. They are aware of the problem. The patient will be followed closely while he is in the hospital. I will be away for the next [address] Avila will be covering me for any neurological issues. After the carotid endarterectomy, patient should have a botulinum toxin therapy for his spastic righ t upper extremity. Prashant Kebede MD cc: [id number] TT: 09/24/2016 07:50:41 Confirmation # [id number] Dictation # [id number] vanessa
[2016-09-24] MEDS ORDERED: Lactated Ringer's 1,000 ML IV ONE ×3 (07:55→10:52)
[2016-09-24] MEDS ORDERED: Bacitracin 50,000 UNIT in Sodium Chloride 0.9% Irrig 1,000 ML IR SCH (08:45)
[2016-09-24] MEDS: ALFUZOSIN HCL 10 MG PO SCH ×2 (09:30→13:00)
[2016-09-24] MEDS ORDERED: Rocuronium 10 mg/ml (5 ml) ONE (09:53)
[2016-09-24] MEDS ORDERED: Thrombin Topical 20,000 Intl Units Spray Kit TOP ONE (10:17)
[2016-09-24] MEDS ORDERED: Phenylephrine 10 mg/ml Inj ONE (10:50)
[2016-09-24] MEDS ORDERED: ePHEDrine 50 mg/ml Inj ONE (10:50)
[2016-09-24] MEDS ORDERED: Neostigmine Methylsulfate 3mg/3ml Syringe IV ONE (11:25)
[2016-09-24] MEDS ORDERED: Morphine 4 MG/ML VIAL IVP PRN (11:43)
[2016-09-24] MEDS ORDERED: Nitroglycerin 2% Ointment Foilpak UD TOP PRN ×2 (11:45→14:48)
--- NOTE | 2016-09-24 11:48 | PCM.SURG1 ---
Surgeon's Initial Post Op Note - Surgeon's Notes Surgeon: Dr. Aguilera Home Sales Service Professional: Dr. Duff PGY-2 Type of Anesthesia: General Endo Pre-Operative Diagnosis: Left carotid stenosis Operative Findings: see operative report Post-Operative Diagnosis: Left carotid stenosis Operation Performed: Left carotid endarterectomy with bovine patch angioplasty Specimen/Specimens Removed: left internal carotid plaque Estimated Blood Loss: EBL {In ML}: 200 Blood Products Given: N/A Drains Used: [place] (red rubber catheter) Post-Op Condition: Fair Date of Surgery/Procedure: 09/24/16 Time of Surgery/Procedure: 08:00
[2016-09-24] MEDS: Sodium Chloride 0.9% 1,000 ML IV SCH (11:50)
[2016-09-24] MEDS: Enoxaparin 40 mg Syringe SC SCH (11:56)
--- NOTE | 2016-09-24 14:35 | OP ---
PROCEDURE DATE: 09/24/2016 PREOPERATIVE DIAGNOSIS: Transient ischemic attack, history a completed stroke; carotid stenosis, holly ateral. PROCEDURE CARRIED OUT: Left carotid endarterectomy. SURGEON: Quenitn Aguilera Jr., MD INTRAOPERATIVE NEURO TECH: Dr. Liz Duff and SHELDON Garcia ANESTHESIA: General anesthesia, Dr. Duncan. INDICATIONS: A 61-year-old man with a completed left hemispheric stroke which left his right side pa ralyzed. At that time, imaging had been done that did not show any significant carotid stenosis. No w he has had recurrent new episodes and at this time, he was found to have a 99% bilateral carotid st enosis. OPERATIVE FINDINGS: There was thick ulcerative plaque at the bifurcation. The internal carotid cindy ry was relatively small, but still had Doppler flow. At the end of the procedure, we had excellent f low. We had placed a Vascu-Guard patch and we had placed a [place] shunt during the procedure. The patient has awoke with no neurological changes. PROCEDURE: The patient was given general anesthesia and intravenous antibiotics. Venodyne boots wer e applied. The incision was made along the anterior border of sternocleidomastoid exposing the commo n internal and external carotid arteries. After exposure of the vessels, heparin was given. The ves sels were clamped. The vessels were opened. The endarterectomy carried out. Clean endpoints were o btained. One tacking suture was placed on the anterior lateral margin. After this had been done, we removed the shunt, sutured the patch into place, obtained hemostasis. We had a blood loss of approx imately 200-250 mL. We then closed the wound after it was dry. This took a great deal of time becau se the patient had been both on aspirin and Plavix. Nonetheless, it was dry prior to closure. A [facility] tissue drain was left and the skin was closed with subcuticular closure and Steri-Strips. OPERATION CARRIED OUT: Left carotid endarterectomy. Quentin Aguilera Jr., MD cc:Moreno Fung MD [id number] TT: 09/24/2016 14:34:20 la
[2016-09-24] MEDS ORDERED: Sodium Chloride 0.9% 1,000 ML IV ONE (14:37)
--- NOTE | 2016-09-24 16:31 | CP.CCUPN ---
<Braulio Russ - Last Filed: 09/24/16 17:38> CCU Subjective - Physician Review Subjective (Free Text): 09/24/16 16:03 Pt seen and examined at bedside. Pt is s/p left CEA this AM. He was initially hypotensive and tachycardic, but responded appropriately to bolus. He admits pain at site, but states it is well controlled on morphine. He is tolerating liquids well post surgery, and will resume regular diet. He denies chest pain, palpitations, abdominal pain, N/V/D/C. Critical Care Time Spent (in minutes): 38 CCU Objective - Vital Signs / Intake & Output Vital Signs (Last 4 hours): Vital Signs Pulse Resp BP Pulse Ox 09/24/16 14:02 89 22 90/60 L 98 09/24/16 14:00 83 17 99 09/24/16 13:28 96 H 19 93/58 L 97 09/24/16 13:01 87 17 98 09/24/16 12:59 85 17 90/57 L 99 Intake and Output (Last 8hrs): Intake & Output 09/24/16 09/24/16 09/24/16 06:59 14:59 22:59 Intake Total 400 Output Total 450 Balance -50 Weight 161 lb Intake: Intake, IV Amount 300 Left Antecubital 300 Oral 100 Output: Urine 450 Urine, Voided 50 - Physical Exam Head: Positive for: Atraumatic, Normocephalic Pupils: Positive for: PERRL Extroacular Muscles: Positive for: EOMI Conjunctiva: Positive for: Normal Mouth: Positive for: Moist Mucous Membranes Neck: Positive for: Other (Bandage from left CEA c/d/i) Respiratory/Chest: Positive for: Clear to Auscultation, Good Air Exchange Cardiovascular: Positive for: Regular Rate and Rhythm, Normal S1, S2 Abdomen: Positive for: Normal Bowel Sounds. 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) Neurological: Positive for: GCS=15, CN II-XII Intact, Other (Residual weakness on right side) Skin: Positive for: Warm, Dry, Other (bandage on left neck c/d/i) Psychiatric: Positive for: Alert, Oriented x 3 - Medications Active Medications: Active Medications Generic Name Dose Route Start Last Admin Trade Name Freq PRN Reason Stop Dose Admin Aspirin 81 mg 09/19/16 10:00 09/24/16 11:55 Ecotrin PO Not Given DAILY [facility] Clopidogrel Bisulfate 75 mg 09/19/16 10:00 09/23/16 09:17 Plavix PO 75 mg DAILY [facility] Administration Enoxaparin Sodium 40 mg 09/22/16 10:00 09/24/16 11:56 Lovenox SC Not Given DAILY [facility] Famotidine 20 mg 09/18/16 18:00 09/24/16 11:57 Pepcid PO Not Given BID [facility] Home Med 1 unit 09/20/16 10:00 09/24/16 13:00 Home Med PO 1 unit DAILY [facility] Administration Sodium Chloride 1,000 mls @ 50 mls/hr 09/24/16 11:45 09/24/16 11:50 Sodium Chloride 0.9% IV 50 mls/hr .Q20H [facility] Administration Morphine Sulfate 4 mg 09/24/16 11:43 Morphine IVP Q4 PRN Pain, moderate (4-7) Nitroglycerin 1 ea 09/24/16 14:48 Nitro-Bid 2% Oint TOP Q5MIN PRN Systolic Blood Pressure Ondansetron HCl 4 mg 09/24/16 11:42 Zofran Inj IVP Q4 PRN Nausea/Vomiting Rosuvastatin Calcium 20 mg 09/18/16 22:00 09/23/16 22:01 Crestor PO 20 mg HS [facility] Administration - Patient Studies Lab Studies: Lab Studies 09/24/16 Range/Units 06:29 Blood Type O POSITIVE Antibody Screen Negative Laboratory Results - last 24 hr 09/24/16 06:29 Blood Type O POSITIVE Antibody Screen Negative Review of Systems - Constitutional Constitutional: absent: Fever, Chills - EENT Eyes: absent: Change in Vision Ears: absent: Decreased Hearing - Cardiovascular Cardiovascular: absent: Chest Pain, Chest Pain at Rest, Dyspnea, Dyspnea on Exertion - Respiratory Respiratory: absent: Cough - Gastrointestinal Gastrointestinal: absent: Abdominal Pain, Nausea, Vomiting - Musculoskeletal Musculoskeletal: Neck Pain (Appropriate s/p CEA) - Neurological Neurological: absent: Confusion, Tremor, Weakness - Psychiatric Psychiatric: absent: Anxiety, Depression Critical Care Progress Note - Nutrition Nutrition: Nutrition Category Date Time Status Heart Healthy Diet [DIET] Diets 09/24/16 Lunch Active Assessment/Plan - Assessment and Plan (Free Text) Assessment: 61 year old male with hx of CAD, HTN, hyperlipidemia, with carotids found to be 99% stenosed bilaterally, and during cath pt was found to have 99% blockage of left circumflex, and 85% stenosis of Proximal RCA. PCI intervention on 2016 @ [place]. Drug eluting stents were placed in the RCA and left circumflex. Pt s/p left CEA today. Plan: Neuro: AAOx3 Hx of CVA (12 years ago) - Sequelae of right sided weakness, expressive aphasia - Passed speech therapy swallow study Hx of bilateral Carotid stenosis - 99% blockage bilaterally - s/p CEA today with Dr. Aguilera - continue ASA/Plavix; restart Lovenox tomorrow AM Cardio: CAD Cardiac cath (09/18/16): - Left circumflex 99% stenosis, Prox RCA 85% PCI @ [place] (09/21/16) - HERO placed in RCA and LCx ASA 81 mg Daily Plavix 75 mg Daily Crestor 20mg PO HS GI: Heart healthy diet LFTs: WNL /Renal: Hx of BPH - Taking home medication: Uroxatral BUN/Cr: WNL MSKLTL: PT eval after pt returns from PCI - hx of right sided weakness, paralysis post CVA 12 years ago Prophylaxis: DVT: SCDs VTE: Lovenox SC Q12H GI: Pepcid 20mg PO BID <YeimifLauro M - Last Filed: 09/24/16 18:07> CCU Objective - Vital Signs / Intake & Output Intake and Output (Last 8hrs): Intake & Output 09/24/16 09/24/16 09/24/16 06:59 14:59 22:59 Intake Total 400 Output Total 450 Balance -50 Weight 161 lb Intake: Intake, IV Amount 300 Left Antecubital 300 Oral 100 Output: Urine 450 Urine, Voided 50 - Medications Active Medications: Active Medications Generic Name Dose Route Start Last Admin Trade Name Freq PRN Reason Stop Dose Admin Aspirin 81 mg 09/19/16 10:00 09/24/16 11:55 Ecotrin PO Not Given DAILY [facility] Clopidogrel Bisulfate 75 mg 09/19/16 10:00 09/23/16 09:17 Plavix PO 75 mg DAILY [facility] Administration Clopidogrel Bisulfate 75 mg 09/24/16 16:45 09/24/16 16:56 Plavix PO 75 mg DAILY [facility] Administration Enoxaparin Sodium 40 mg 09/22/16 10:00 09/24/16 11:56 Lovenox SC Not Given DAILY [facility] Famotidine 20 mg 09/18/16 18:00 09/24/16 11:57 Pepcid PO Not Given BID [facility] Home Med 1 unit 09/20/16 10:00 09/24/16 13:00 Home Med PO 1 unit DAILY [facility] Administration Sodium Chloride 1,000 mls @ 50 mls/hr 09/24/16 11:45 09/24/16 11:50 Sodium Chloride 0.9% IV 50 mls/hr .Q20H [facility] Administration Morphine Sulfate 4 mg 09/24/16 11:43 Morphine IVP Q4 PRN Pain, moderate (4-7) Nitroglycerin 1 ea 09/24/16 14:48 Nitro-Bid 2% Oint TOP Q5MIN PRN Systolic Blood Pressure Ondansetron HCl 4 mg 09/24/16 11:42 Zofran Inj IVP Q4 PRN Nausea/Vomiting Rosuvastatin Calcium 20 mg 09/18/16 22:00 09/23/16 22:01 Crestor PO 20 mg HS [facility] Administration - Patient Studies Lab Studies: Lab Studies 09/24/16 Range/Units 06:29 Blood Type O POSITIVE Antibody Screen Negative Laboratory Results - last 24 hr 09/24/16 06:29 Blood Type O POSITIVE Antibody Screen Negative Critical Care Progress Note - Nutrition Nutrition: Nutrition Category Date Time Status Heart Healthy Diet [DIET] Diets 09/24/16 Lunch Active Attending/Attestation - Attestation I have personally seen and examined this patient.: Yes I have fully participated in the care of the patient.: Yes I have reviewed all pertinent clinical information: Yes Notes (Text): 09/24/16 18:07 Today: September The Patient was seen and examined at the bedside, Medical records reviewed, all clinical/lab/hemodynamic/radiographic data were reviewed and management issues were discussed and formulated, Events reviewed Pain issues, skin care, head of the bed elevation, glycemic control were addressed. Agree with above treatment plans as transcribed in Dr. Russ note
--- NOTE | 2016-09-24 23:25 | CP.PCM.PN ---
Subjective - Date & Time of Evaluation Date of Evaluation: 09/24/16 Time of Evaluation: 19:15 - Subjective Subjective: Patient s/p CEA No cardiac events Objective - Vital Signs/Intake and Output Vital Signs (last 24 hours): Temp Pulse Resp BP Pulse Ox 97.5 F L 79 22 101/54 L 98 09/24/16 20:00 09/24/16 20:00 09/24/16 20:00 09/24/16 20:00 09/24/16 14:02 Intake and Output: 09/24/16 09/25/16 18:59 06:59 Intake Total 890 150 Output Total 1400 300 Balance -510 -150 - Medications Medications: Current Medications Aspirin (Ecotrin) 81 mg PO DAILY [facility] Last Admin: 09/24/16 11:55 Dose: Not Given Clopidogrel Bisulfate (Plavix) 75 mg PO DAILY [facility] Last Admin: 09/24/16 16:56 Dose: 75 mg Enoxaparin Sodium (Lovenox) 40 mg SC DAILY [facility] Last Admin: 09/24/16 11:56 Dose: Not Given Famotidine (Pepcid) 20 mg PO BID [facility] Last Admin: 09/24/16 21:05 Dose: 20 mg Home Med (Home Med) 1 unit PO DAILY [facility] Last Admin: 09/24/16 13:00 Dose: 1 unit Sodium Chloride (Sodium Chloride 0.9%) 1,000 mls @ 50 mls/hr IV .Q20H [facility] Last Admin: 09/24/16 11:50 Dose: 50 mls/hr Morphine Sulfate (Morphine) 4 mg IVP Q4 PRN PRN Reason: Pain, moderate (4-7) Nitroglycerin (Nitro-Bid 2% Oint) 1 ea TOP Q5MIN PRN PRN Reason: Systolic Blood Pressure Ondansetron HCl (Zofran Inj) 4 mg IVP Q4 PRN PRN Reason: Nausea/Vomiting Rosuvastatin Calcium (Crestor) 20 mg PO HS [facility] Last Admin: 09/24/16 21:06 Dose: 20 mg - Labs Labs: 09/23/16 06:43 09/23/16 06:43 PT 13.6 SECONDS (9.7-12.2) H 09/21/16 06:41 INR 1.2 09/21/16 06:41 APTT 33 SECONDS (21-34) 09/18/16 07:01
[2016-09-25] MEDS: Sodium Chloride 0.9% 1,000 ML IV SCH ×2 (05:54→09:28)
[2016-09-25 06:05] LABS: BASO % 0.7 % (0.0-2.0); EOS # 0.1 K/uL (0.0-0.7); EOS % 1.8 % (0.0-4.0); HEMATOCRIT 35.8 % (35.0-51.0); LYMPH # 0.9 K/uL (1.0-4.3); LYMPH % 14.9 % (20.0-40.0); MEAN CORPUSCULAR HEMOGLOBIN 29.4 pg (27.0-31.0); MEAN CORPUSCULAR HGB CONC 33.4 g/dL (33.0-37.0); MEAN PLATELET VOLUME 7.6 fL (7.2-11.7); MONO # 0.5 K/uL (0.0-0.8); MONO % 8.2 % (0.0-10.0); RED CELL DISTRIBUTION WIDTH 13.5 % (11.5-14.5)
[2016-09-25 06:35] LABS: CHLORIDE 101 mmol/L (98-107); SODIUM 134 mmol/L (132-148)
[2016-09-25 06:36] LABS: POTASSIUM 3.9 mmol/L (3.6-5.2)
[2016-09-25 06:38] LABS: ALB/GLOB RATIO 1.4 (1.0-2.1); ALKALINE PHOSPHATASE 68 U/L (38-126); ALT/SGPT 64 U/L (21-72); AST/SGOT 32 U/L (17-59); BILIRUBIN,TOTAL 1.3 mg/dL (0.2-1.3); BLOOD UREA NITROGEN 13 mg/dL (9-20); CARBON DIOXIDE 23 mmol/L (22-30); GFR AFRICAN-AMERICAN > 60; GLUCOSE,RANDOM 92 mg/dL (75-110); TOTAL PROTEIN 5.7 g/dL (6.3-8.3)
[2016-09-25 06:39] LABS: CALCIUM 7.6 mg/dl (8.6-10.4); MAGNESIUM 1.8 mg/dL (1.6-2.3); PHOSPHOROUS 3.5 mg/dL (2.5-4.5)
--- NOTE | 2016-09-25 07:30 | CP.CCUPN ---
<Braulio Russ - Last Filed: 09/25/16 11:52> CCU Subjective - Physician Review Subjective (Free Text): 09/25/16 07:26 Pt seen and examined at bedside. Nursing reports no acute events overnight. Pt is POD#1 left CEA. He had been voiding in small amounts post-surgery so a alston catheter was inserted per orders of the surgeon, Dr. Aguilera. Vasu blood was noted in the urine, and urology, Dr. Hernandez, was consulted. Pt reports history of 'urinary blockages.' Dr. Marco Chacko, his home Urologist, states the pt has a distal urethral stricture that requires dilation every six months. Nursing reports no difficulty in inserting catheter with no obstruction noted. He denies chest pain, palpitations, abdominal pain, N/V/D/C. Critical Care Time Spent (in minutes): 35 CCU Objective - Vital Signs / Intake & Output Vital Signs (Last 4 hours): Vital Signs Temp Pulse Resp BP Pulse Ox 09/25/16 06:26 91 H 09/25/16 04:00 97.8 F 94 H 18 104/68 97 Intake and Output (Last 8hrs): Intake & Output 09/24/16 09/25/16 09/25/16 22:59 06:59 14:59 Intake Total 940 500 50 Output Total 1350 750 75 Balance -410 -250 -25 Weight 161 lb 7 oz Intake: Intake, IV Amount 350 350 50 Left Antecubital 350 350 50 Oral 590 150 Output: Urine 1350 750 75 Urine, Voided 150 Urethral (Alston) 1200 750 75 - Physical Exam Head: Positive for: Atraumatic, Normocephalic Pupils: Positive for: PERRL Extroacular Muscles: Positive for: EOMI Conjunctiva: Positive for: Normal Mouth: Positive for: Moist Mucous Membranes Neck: Positive for: Other (Bandage from left CEA c/d/i) Respiratory/Chest: Positive for: Clear to Auscultation, Good Air Exchange Cardiovascular: Positive for: Regular Rate and Rhythm, Normal S1, S2 Abdomen: Positive for: Normal Bowel Sounds. 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) Neurological: Positive for: GCS=15, CN II-XII Intact, Other (Residual weakness on right side) Skin: Positive for: Warm, Dry, Other (bandage on left neck c/d/i) Psychiatric: Positive for: Alert, Oriented x 3 - Medications Active Medications: Active Medications Generic Name Dose Route Start Last Admin Trade Name Freq PRN Reason Stop Dose Admin Aspirin 81 mg 09/19/16 10:00 09/24/16 11:55 Ecotrin PO Not Given DAILY [facility] Clopidogrel Bisulfate 75 mg 09/24/16 16:45 09/24/16 16:56 Plavix PO 75 mg DAILY [facility] Administration Enoxaparin Sodium 40 mg 09/22/16 10:00 09/24/16 11:56 Lovenox SC Not Given DAILY [facility] Famotidine 20 mg 09/18/16 18:00 09/24/16 21:05 Pepcid PO 20 mg BID [facility] Administration Home Med 1 unit 09/20/16 10:00 09/24/16 13:00 Home Med PO 1 unit DAILY [facility] Administration Sodium Chloride 1,000 mls @ 50 mls/hr 09/24/16 11:45 09/25/16 05:54 Sodium Chloride 0.9% IV 50 mls/hr .Q20H [facility] Administration Morphine Sulfate 4 mg 09/24/16 11:43 Morphine IVP Q4 PRN Pain, moderate (4-7) Nitroglycerin 1 ea 09/24/16 14:48 Nitro-Bid 2% Oint TOP Q5MIN PRN Systolic Blood Pressure Ondansetron HCl 4 mg 09/24/16 11:42 Zofran Inj IVP Q4 PRN Nausea/Vomiting Rosuvastatin Calcium 20 mg 09/18/16 22:00 09/24/16 21:06 Crestor PO 20 mg HS [facility] Administration - Patient Studies Lab Studies: Lab Studies 09/25/16 09/25/16 09/24/16 Range/Units 06:05 06:00 06:29 WBC 6.0 (4.8-10.8) K/uL RBC 4.06 L (4.40-5.90) Mil/uL Hgb 11.9 L D (12.0-18.0) g/dL Hct 35.8 (35.0-51.0) % MCV 88.0 (80.0-94.0) fL MCH 29.4 (27.0-31.0) pg MCHC 33.4 (33.0-37.0) g/dL RDW 13.5 (11.5-14.5) % Plt Count 110 L (130-400) K/uL MPV 7.6 (7.2-11.7) fL Neut % (Auto) 74.4 (50.0-75.0) % Lymph % (Auto) 14.9 L (20.0-40.0) % [place] % (Auto) 8.2 (0.0-10.0) % Eos % (Auto) 1.8 (0.0-4.0) % Baso % (Auto) 0.7 (0.0-2.0) % Neut # 4.5 (1.8-7.0) K/uL Lymph # 0.9 L (1.0-4.3) K/uL [place] # 0.5 (0.0-0.8) K/uL Eos # 0.1 (0.0-0.7) K/uL Baso # 0.0 (0.0-0.2) K/uL Sodium 134 (132-148) mmol/L Potassium 3.9 (3.6-5.2) mmol/L Chloride 101 (98-107) mmol/L Carbon Dioxide 23 (22-30) mmol/L Anion Gap 14 (10-20) BUN 13 (9-20) mg/dL Creatinine 0.8 (0.8-1.5) MG/DL Est GFR ( Amer) > 60 Est GFR (Non-Af Amer) > 60 Random Glucose 92 (75-110) mg/dL Calcium 7.6 L (8.6-10.4) mg/dl Phosphorus 3.5 (2.5-4.5) mg/dL Magnesium 1.8 (1.6-2.3) mg/dL Total Bilirubin 1.3 (0.2-1.3) mg/dL AST 32 (17-59) U/L ALT 64 (21-72) U/L Alkaline Phosphatase 68 (38-126) U/L Total Protein 5.7 L (6.3-8.3) g/dL Albumin 3.3 L (3.5-5.0) g/dL Globulin 2.4 (2.2-3.9) gm/dL Albumin/Globulin Ratio 1.4 (1.0-2.1) Blood Type O POSITIVE Antibody Screen Negative Laboratory Results - last 24 hr 09/24/16 09/25/16 09/25/16 06:29 06:00 06:05 WBC 6.0 RBC 4.06 L Hgb 11.9 L D Hct 35.8 MCV 88.0 MCH 29.4 MCHC 33.4 RDW 13.5 Plt Count 110 L MPV 7.6 Neut % (Auto) 74.4 Lymph % (Auto) 14.9 L [place] % (Auto) 8.2 Eos % (Auto) 1.8 Baso % (Auto) 0.7 Neut # 4.5 Lymph # 0.9 L [place] # 0.5 Eos # 0.1 Baso # 0.0 Sodium 134 Potassium 3.9 Chloride 101 Carbon Dioxide 23 Anion Gap 14 BUN 13 Creatinine 0.8 Est GFR ( Amer) > 60 Est GFR (Non-Af Amer) > 60 Random Glucose 92 Calcium 7.6 L Phosphorus 3.5 Magnesium 1.8 Total Bilirubin 1.3 AST 32 ALT 64 Alkaline Phosphatase 68 Total Protein 5.7 L Albumin 3.3 L Globulin 2.4 Albumin/Globulin Ratio 1.4 Blood Type O POSITIVE Antibody Screen Negative Review of Systems - Constitutional Constitutional: absent: Fever, Chills - EENT Eyes: absent: Change in Vision Ears: absent: Decreased Hearing Nose/Mouth/Throat: absent: Nasal Discharge - Cardiovascular Cardiovascular: absent: Chest Pain, Chest Pain at Rest, Dyspnea, Dyspnea on Exertion - Respiratory Respiratory: absent: Cough, Chest Congestion - Gastrointestinal Gastrointestinal: absent: Abdominal Pain, Nausea, Vomiting - Genitourinary Genitourinary: Difficulty Urinating (only urinating in small amts so alston inserted), Hematuria (overnight; 200 cc in alston bag) - Musculoskeletal Musculoskeletal: absent: Back Pain, Numbness, Tingling - Integumentary Integumentary: absent: Rash - Neurological Neurological: absent: Confusion, Headaches, Tingling, Weakness - Endocrine Endocrine: absent: Polydipsia, Polyphagia, Polyuria Critical Care Progress Note - Nutrition Nutrition: Nutrition Category Date Time Status Heart Healthy Diet [DIET] Diets 09/24/16 Lunch Active Assessment/Plan - Assessment and Plan (Free Text) Assessment: 61 year old male with hx of CAD, HTN, hyperlipidemia, with carotids found to be 99% stenosed bilaterally, and during cath pt was found to have 99% blockage of left circumflex, and 85% stenosis of Proximal RCA. PCI intervention on 2016 @ [place]. Drug eluting stents were placed in the RCA and left circumflex. Pt s/p left CEA yesterday. Plan: Neuro: AAOx3 Hx of CVA (12 years ago) - Sequelae of right sided weakness, expressive aphasia - Passed speech therapy swallow study Hx of bilateral Carotid stenosis - 99% blockage bilaterally - s/p CEA (09/25) with Dr. Aguilera - continue ASA/Plavix - HOLD Lovenox this AM Cardio: CAD Cardiac cath (09/18/16): - Left circumflex 99% stenosis, Prox RCA 85% PCI @ [place] (09/21/16) - HERO placed in RCA and LCx ASA 81 mg Daily Plavix 75 mg Daily Crestor 20mg PO HS GI: Heart healthy diet LFTs: WNL /Renal: Hematuria - alston inserted, for oliguria (inserted by laborer yard nurse who reports no obstruction) - hematuria noted this AM, approx 180cc in alston bag - spoke to Dr. Chacko, pts home urologist, has hx of distal urethral obstruction Dr. 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 Prophylaxis: DVT: SCDs VTE: Lovenox SC Q12H (HOLD) GI: Pepcid 20mg PO BID <YeimifLauro M - Last Filed: 09/26/16 23:32> CCU Objective - Vital Signs / Intake & Output Intake and Output (Last 8hrs): Intake & Output 09/26/16 09/26/16 09/27/16 14:59 22:59 06:59 Intake Total 1080 0 Output Total 1001 580 Balance 79 -580 Intake: Intake, IV Amount 400 0 Left Antecubital 400 0 Oral 680 Output: Urine 1000 580 Urine, Voided 580 Urethral (Alston) 1000 Stool 1 0 Other: # Voids Urine, Voided 2 - Patient Studies Lab Studies: Lab Studies 09/26/16 Range/Units 06:19 WBC 5.6 (4.8-10.8) K/uL RBC 4.06 L (4.40-5.90) Mil/uL Hgb 12.0 (12.0-18.0) g/dL Hct 36.1 (35.0-51.0) % MCV 88.8 (80.0-94.0) fL MCH 29.6 (27.0-31.0) pg MCHC 33.3 (33.0-37.0) g/dL RDW 13.6 (11.5-14.5) % Plt Count 120 L (130-400) K/uL MPV 7.4 (7.2-11.7) fL Neut % (Auto) 67.3 (50.0-75.0) % Lymph % (Auto) 19.0 L (20.0-40.0) % [place] % (Auto) 10.1 H (0.0-10.0) % Eos % (Auto) 2.7 (0.0-4.0) % Baso % (Auto) 0.9 (0.0-2.0) % Neut # 3.8 (1.8-7.0) K/uL Lymph # 1.1 (1.0-4.3) K/uL [place] # 0.6 (0.0-0.8) K/uL Eos # 0.2 (0.0-0.7) K/uL Baso # 0.0 (0.0-0.2) K/uL Sodium 138 (132-148) mmol/L Potassium 4.1 (3.6-5.2) mmol/L Chloride 104 (98-107) mmol/L Carbon Dioxide 21 L (22-30) mmol/L Anion Gap 17 (10-20) BUN 11 (9-20) mg/dL Creatinine 0.8 (0.8-1.5) MG/DL Est GFR ( Amer) > 60 Est GFR (Non-Af Amer) > 60 Random Glucose 104 (75-110) mg/dL Calcium 8.2 L (8.6-10.4) mg/dl Phosphorus 3.6 (2.5-4.5) mg/dL Magnesium 2.0 (1.6-2.3) mg/dL Total Bilirubin 0.7 (0.2-1.3) mg/dL AST 30 (17-59) U/L ALT 44 (21-72) U/L Alkaline Phosphatase 71 (38-126) U/L Total Protein 6.4 (6.3-8.3) g/dL Albumin 3.5 (3.5-5.0) g/dL Globulin 2.9 (2.2-3.9) gm/dL Albumin/Globulin Ratio 1.2 (1.0-2.1) Laboratory Results - last 24 hr 09/26/16 06:19 WBC 5.6 RBC 4.06 L Hgb 12.0 Hct 36.1 MCV 88.8 MCH 29.6 MCHC 33.3 RDW 13.6 Plt Count 120 L MPV 7.4 Neut % (Auto) 67.3 Lymph % (Auto) 19.0 L [place] % (Auto) 10.1 H Eos % (Auto) 2.7 Baso % (Auto) 0.9 Neut # 3.8 Lymph # 1.1 [place] # 0.6 Eos # 0.2 Baso # 0.0 Sodium 138 Potassium 4.1 Chloride 104 Carbon Dioxide 21 L Anion Gap 17 BUN 11 Creatinine 0.8 Est GFR ( Amer) > 60 Est GFR (Non-Af Amer) > 60 Random Glucose 104 Calcium 8.2 L Phosphorus 3.6 Magnesium 2.0 Total Bilirubin 0.7 AST 30 ALT 44 Alkaline Phosphatase 71 Total Protein 6.4 Albumin 3.5 Globulin 2.9 Albumin/Globulin Ratio 1.2 Critical Care Progress Note - Nutrition Nutrition: Nutrition Category Date Time Status Heart Healthy Diet [DIET] Diets 09/24/16 Lunch Active Attending/Attestation - Attestation I have personally seen and examined this patient.: Yes I have fully participated in the care of the patient.: Yes I have reviewed all pertinent clinical information: Yes Notes (Text): Today: Wednesday, September 25, 2016 The Patient was seen and examined at the bedside, Medical records reviewed, all clinical/lab/hemodynamic/radiographic data were reviewed and management issues were discussed and formulated, Events reviewed Pain issues, skin care, head of the bed elevation, glycemic control were addressed. Agree with above treatment plans as transcribed in Dr. Russ note
--- NOTE | 2016-09-25 07:53 | CP.PCM.PN ---
Subjective - Date & Time of Evaluation Date of Evaluation: 09/25/16 Time of Evaluation: 07:52 - Subjective Subjective: dw drain removed no hematoma or bleeding neuro unchanged blood in urine increase activity dc per pmd other side when recovered from this Objective - Vital Signs/Intake and Output Vital Signs (last 24 hours): Temp Pulse Resp BP Pulse Ox 97.8 F 91 H 18 104/68 97 09/25/16 04:00 09/25/16 06:26 09/25/16 04:00 09/25/16 04:00 09/25/16 04:00 Intake and Output: 09/25/16 09/25/16 06:59 18:59 Intake Total 800 50 Output Total 1150 75 Balance -350 -25 - Medications Medications: Current Medications Aspirin (Ecotrin) 81 mg PO DAILY [facility] Last Admin: 09/24/16 11:55 Dose: Not Given Clopidogrel Bisulfate (Plavix) 75 mg PO DAILY [facility] Last Admin: 09/24/16 16:56 Dose: 75 mg Enoxaparin Sodium (Lovenox) 40 mg SC DAILY [facility] Last Admin: 09/24/16 11:56 Dose: Not Given Famotidine (Pepcid) 20 mg PO BID [facility] Last Admin: 09/24/16 21:05 Dose: 20 mg Home Med (Home Med) 1 unit PO DAILY [facility] Last Admin: 09/24/16 13:00 Dose: 1 unit Sodium Chloride (Sodium Chloride 0.9%) 1,000 mls @ 50 mls/hr IV .Q20H [facility] Last Admin: 09/25/16 05:54 Dose: 50 mls/hr Morphine Sulfate (Morphine) 4 mg IVP Q4 PRN PRN Reason: Pain, moderate (4-7) Nitroglycerin (Nitro-Bid 2% Oint) 1 ea TOP Q5MIN PRN PRN Reason: Systolic Blood Pressure Ondansetron HCl (Zofran Inj) 4 mg IVP Q4 PRN PRN Reason: Nausea/Vomiting Rosuvastatin Calcium (Crestor) 20 mg PO [facility] Last Admin: 09/24/16 21:06 Dose: 20 mg - Labs Labs: 09/25/16 06:00 09/25/16 06:05 PT 13.6 SECONDS (9.7-12.2) H 09/21/16 06:41 INR 1.2 09/21/16 06:41 APTT 33 SECONDS (21-34) 09/18/16 07:01
[2016-09-25] MEDS: ALFUZOSIN HCL 10 MG PO SCH (11:16)
[2016-09-25] MEDS: Enoxaparin 40 mg Syringe SC SCH (11:24)
--- NOTE | 2016-09-25 13:28 | CP.PCM.CON ---
Past Patient History - Infectious Disease Hx of Infectious Diseases: None - Past Medical History & Family History Past Medical History?: Yes Past Family History: Reviewed and not pertinent - Past Social History Smoking Status: Current Some Days Smoker Chewing Tobacco Use: No Cigar Use: No Alcohol: None Home Situation {Lives}: With Family - CARDIAC Hx Hypercholesterolemia: Yes - NEUROLOGICAL HX Cerebrovascular Accident: Yes (12 YEARS AGO) - MUSCULOSKELETAL/RHEUMATOLOGICAL Hx Falls: No - PSYCHIATRIC Hx Substance Use: No - SURGICAL HISTORY Hx Herniorrhaphy: Yes - ANESTHESIA Hx Anesthesia: Yes Hx Anesthesia Reactions: No Meds Allergies/Adverse Reactions: Allergies Allergy/AdvReac Type Severity Reaction Status Date / Time No Known Allergies Allergy Verified 09/17/16 13:52 - Medications Medications: Current Medications Aspirin (Ecotrin) 81 mg PO DAILY [facility] Last Admin: 09/24/16 11:55 Dose: Not Given Clopidogrel Bisulfate (Plavix) 75 mg PO DAILY [facility] Last Admin: 09/25/16 11:16 Dose: 75 mg Enoxaparin Sodium (Lovenox) 40 mg SC DAILY [facility] Last Admin: 09/25/16 11:24 Dose: Not Given Famotidine (Pepcid) 20 mg PO BID [facility] Last Admin: 09/25/16 11:16 Dose: 20 mg Home Med (Home Med) 1 unit PO DAILY [facility] Last Admin: 09/25/16 11:16 Dose: 1 unit Sodium Chloride (Sodium Chloride 0.9%) 1,000 mls @ 50 mls/hr IV .Q20H [facility] Last Admin: 09/25/16 09:28 Dose: Not Given Morphine Sulfate (Morphine) 4 mg IVP Q4 PRN PRN Reason: Pain, moderate (4-7) Nitroglycerin (Nitro-Bid 2% Oint) 1 ea TOP Q5MIN PRN PRN Reason: Systolic Blood Pressure Ondansetron HCl (Zofran Inj) 4 mg IVP Q4 PRN PRN Reason: Nausea/Vomiting Rosuvastatin Calcium (Crestor) 20 mg PO [facility] Last Admin: 09/24/16 21:06 Dose: 20 mg Results - Vital Signs Recent Vital Signs: Last Vital Signs Temp 97.8 F 09/25/16 04:00 Pulse 91 H 09/25/16 06:26 Resp 18 09/25/16 04:00 BP 104/68 09/25/16 04:00 Pulse Ox 97 09/25/16 04:00 - Labs Result Diagrams: 09/25/16 06:00 09/25/16 06:05 Labs: Laboratory Results - last 24 hr 09/25/16 09/25/16 06:00 06:05 WBC 6.0 RBC 4.06 L Hgb 11.9 L D Hct 35.8 MCV 88.0 MCH 29.4 MCHC 33.4 RDW 13.5 Plt Count 110 L MPV 7.6 Neut % (Auto) 74.4 Lymph % (Auto) 14.9 L [place] % (Auto) 8.2 Eos % (Auto) 1.8 Baso % (Auto) 0.7 Neut # 4.5 Lymph # 0.9 L [place] # 0.5 Eos # 0.1 Baso # 0.0 Sodium 134 Potassium 3.9 Chloride 101 Carbon Dioxide 23 Anion Gap 14 BUN 13 Creatinine 0.8 Est GFR ( Amer) > 60 Est GFR (Non-Af Amer) > 60 Random Glucose 92 Calcium 7.6 L Phosphorus 3.5 Magnesium 1.8 Total Bilirubin 1.3 AST 32 ALT 64 Alkaline Phosphatase 68 Total Protein 5.7 L Albumin 3.3 L Globulin 2.4 Albumin/Globulin Ratio 1.4 Assessment & Plan - Assessment and Plan (Free Text) Assessment: IMP: HEMATURIA HX OF URETHRAL STRICTURE CAD CEREBROVASCULAR DISEASE HX OF CVA, HEMIPARESIS RETENTION - Date & Time Date: 09/25/16 Time: 13:28
[2016-09-25] MEDS ORDERED: POLYETHYLENE GLYCOL 3350 17 GM/Dose PACKET PO ONE (19:10)
--- NOTE | 2016-09-25 22:44 | CP.PCM.PN ---
Subjective - Date & Time of Evaluation Date of Evaluation: 09/25/16 Time of Evaluation: 14:00 - Subjective Subjective: Patient with hematuria Urology consulted No cardiac events Objective - Vital Signs/Intake and Output Vital Signs (last 24 hours): Temp Pulse Resp BP Pulse Ox 98.6 F 91 H 18 104/68 97 09/25/16 16:00 09/25/16 06:26 09/25/16 04:00 09/25/16 04:00 09/25/16 04:00 Intake and Output: 09/25/16 09/26/16 18:59 06:59 Intake Total 1500 Output Total 965 Balance 535 - Medications Medications: Current Medications Aspirin (Ecotrin) 81 mg PO DAILY [facility] Last Admin: 09/24/16 11:55 Dose: Not Given Clopidogrel Bisulfate (Plavix) 75 mg PO DAILY [facility] Last Admin: 09/25/16 11:16 Dose: 75 mg Enoxaparin Sodium (Lovenox) 40 mg SC DAILY [facility] Last Admin: 09/25/16 11:24 Dose: Not Given Famotidine (Pepcid) 20 mg PO BID [facility] Last Admin: 09/25/16 18:13 Dose: 20 mg Home Med (Home Med) 1 unit PO DAILY [facility] Last Admin: 09/25/16 11:16 Dose: 1 unit Sodium Chloride (Sodium Chloride 0.9%) 1,000 mls @ 50 mls/hr IV .Q20H [facility] Last Admin: 09/25/16 09:28 Dose: Not Given Morphine Sulfate (Morphine) 4 mg IVP Q4 PRN PRN Reason: Pain, moderate (4-7) Nitroglycerin (Nitro-Bid 2% Oint) 1 ea TOP Q5MIN PRN PRN Reason: Systolic Blood Pressure Ondansetron HCl (Zofran Inj) 4 mg IVP Q4 PRN PRN Reason: Nausea/Vomiting Rosuvastatin Calcium (Crestor) 20 mg PO HS [facility] Last Admin: 09/25/16 22:00 Dose: 20 mg - Labs Labs: 09/25/16 06:00 09/25/16 06:05 PT 13.6 SECONDS (9.7-12.2) H 09/21/16 06:41 INR 1.2 09/21/16 06:41 APTT 33 SECONDS (21-34) 09/18/16 07:01
[2016-09-26] MEDS: Sodium Chloride 0.9% 1,000 ML IV SCH (03:00)
[2016-09-26 06:25] LABS: BASO % 0.9 % (0.0-2.0); EOS # 0.2 K/uL (0.0-0.7); EOS % 2.7 % (0.0-4.0); HEMATOCRIT 36.1 % (35.0-51.0); LYMPH # 1.1 K/uL (1.0-4.3); MEAN CELL VOLUME 88.8 fL (80.0-94.0); MEAN CORPUSCULAR HEMOGLOBIN 29.6 pg (27.0-31.0); MEAN CORPUSCULAR HGB CONC 33.3 g/dL (33.0-37.0); MEAN PLATELET VOLUME 7.4 fL (7.2-11.7); MONO # 0.6 K/uL (0.0-0.8); MONO % 10.1 % (0.0-10.0); NRBC % 0.1 % (0.0-2.0); RED CELL DISTRIBUTION WIDTH 13.6 % (11.5-14.5); WHITE BLOOD COUNT 5.6 K/uL (4.8-10.8)
[2016-09-26 06:38] LABS: CHLORIDE 104 mmol/L (98-107)
[2016-09-26 06:39] LABS: POTASSIUM 4.1 mmol/L (3.6-5.2); SODIUM 138 mmol/L (132-148)
[2016-09-26 06:41] LABS: ALB/GLOB RATIO 1.2 (1.0-2.1); AST/SGOT 30 U/L (17-59); BILIRUBIN,TOTAL 0.7 mg/dL (0.2-1.3); CARBON DIOXIDE 21 mmol/L (22-30); GFR AFRICAN-AMERICAN > 60; TOTAL PROTEIN 6.4 g/dL (6.3-8.3)
[2016-09-26 06:42] LABS: ALKALINE PHOSPHATASE 71 U/L (38-126); ALT/SGPT 44 U/L (21-72); BLOOD UREA NITROGEN 11 mg/dL (9-20); CALCIUM 8.2 mg/dl (8.6-10.4); GLUCOSE,RANDOM 104 mg/dL (75-110); PHOSPHOROUS 3.6 mg/dL (2.5-4.5)
[2016-09-26] MEDS: ALFUZOSIN HCL 10 MG PO SCH (09:24)
--- NOTE | 2016-09-26 10:33 | CP.PCM.PN ---
Subjective - Date & Time of Evaluation Date of Evaluation: 09/26/16 Time of Evaluation: 10:32 - Subjective Subjective: dw no bleeding or hematoma dc per pmd fu office urine clear no change in meds Objective - Vital Signs/Intake and Output Vital Signs (last 24 hours): Temp Pulse Resp BP Pulse Ox 97.8 F 82 20 100/62 94 L 09/26/16 08:00 09/26/16 08:00 09/26/16 08:00 09/26/16 08:00 09/26/16 08:00 Intake and Output: 09/26/16 09/26/16 06:59 18:59 Intake Total 650 530 Output Total 920 400 Balance -270 130 - Medications Medications: Current Medications Aspirin (Ecotrin) 81 mg PO DAILY [facility] Last Admin: 09/26/16 09:23 Dose: 81 mg Clopidogrel Bisulfate (Plavix) 75 mg PO DAILY [facility] Last Admin: 09/26/16 09:23 Dose: 75 mg Famotidine (Pepcid) 20 mg PO BID [facility] Last Admin: 09/26/16 09:23 Dose: 20 mg Home Med (Home Med) 1 unit PO DAILY [facility] Last Admin: 09/26/16 09:24 Dose: 1 unit Nitroglycerin (Nitro-Bid 2% Oint) 1 ea TOP Q5MIN PRN PRN Reason: Systolic Blood Pressure Rosuvastatin Calcium (Crestor) 20 mg PO HS [facility] Last Admin: 09/25/16 22:00 Dose: 20 mg - Labs Labs: 09/26/16 06:19 09/26/16 06:19 PT 13.6 SECONDS (9.7-12.2) H 09/21/16 06:41 INR 1.2 09/21/16 06:41 APTT 33 SECONDS (21-34) 09/18/16 07:01
[2016-09-26 15:00] VITALS: BP 113/80; TEMP 98.2
[2016-09-26 16:06] VITALS: PULSE 96; RESP 18; O2SAT 110
--- NOTE | 2016-09-27 14:26 | CON ---
DATE: 09/25/2016 UROLOGY CONSULTATION REQUESTED BY: Dr. Delarosa UROLOGY CONSULTATION FILLED BY: Dr. Theresa Hernandez REASON FOR CONSULTATION: Hematuria. The patient is a 61-year-old male with gross hematuria. The patient is in otherwise fair health. The patient had a Paz catheter inserted yesterday. He goode s had gross hematuria via the Paz catheter. The patient has history of coronary artery disease. He had angioplasty with insertion of 2 ureteral stents. The patient had carotid endarterectomy performed on 09/24. The patient had catheter inserted for urinary retention. There has been hematuria since then via the Paz catheter. The patient previously voids with fair to good urinary stream. The patient has good urinary control. The patient has nocturia. History is obtained from the patient with assistance by patient's . The patient has a history of urethral stricture disease. He is followed by his urologist, who perfor ms urethral dilation twice a year, for presumed urethral stricture disease. The patient reports no history of urolithiasis. No abdominal pain, no flank pain. No nausea or vomiting. The patient has history of cerebrovascular disease as well. He has history of previous stroke with r esultant hemiparesis. The patient is now tolerating his diet well. No recent fever or rigors. The patient is comfortable with the Paz catheter. Further details as per chart, which is reviewed. PHYSICAL EXAMINATION: GENERAL: The patient is a well-developed, well-nourished male, appearing his stated age. The patien t is awake and alert. ABDOMEN: Soft, nontender, nondistended. No mass or organomegaly. GENITOURINARY: The urine is pink via the Paz catheter (apparently this is a instructional technology specialist color than pre viously, according to the patient's and ICU staff). GENITALIA: Without inflammation. I adjusted the catheter position and confirmed that the catheter is in the bladder. The catheter is draining well. MEDICATIONS: Reviewed as well. IMPRESSION: Hematuria. Hematuria may be related to the recent urinary retention. Hematuria may be related to the catheterization. Also, a contributing factor is the patient's antiplatelet/anticoagul ant medications. The etiology of urinary retention may be due to bladder outlet obstruction and/or detrusor muscle hyp ofunction. Also, exacerbating contributing factors is recent postoperative state, level of inactivit y and medications. RECOMMENDATIONS AND PLAN: Monitor the urine output. Measure serum PSA. Urine culture. Urine cytol ogy. Trial of voiding to follow. Add Flomax. The patient will require further urologic evaluation. This may be performed by me or by patient's pr evious urologist, according to his wishes. Further therapy to follow according to patient's clinical course. Thank you for recommending patient for urology consultation. I discussed the findings with the patient, his , and with the ICU attending, and with the vascula r surgeon. Theresa Hernandez MD cc: [phone] TT: 09/27/2016 14:25:11 Confirmation # [id number] Dictation # [id number]
--- NOTE | 2016-09-29 22:57 | CP.PCM.DIS ---
Provider - Provider Date of Admission: 09/18/16 10:32 Attending physician: Gunner Delarosa MD Time Spent in preparation of Discharge (in minutes): 45 Diagnosis - Discharge Diagnosis (1) Carotid stenosis, bilateral Status: Acute (2) CVA (cerebral vascular accident) Status: Acute (3) HTN (hypertension) Status: Acute Hospital Course - Lab Results Lab Results: Micro Results 09/26/16 18:00 Naris MRSA Culture - Final MRSA NOT DETECTED 09/18/16 14:15 Nose MRSA Culture (Admit) - Final MRSA NOT DETECTED Most Recent Lab Values WBC 5.6 K/uL (4.8-10.8) 09/26/16 06:19 RBC 4.06 Mil/uL (4.40-5.90) L 09/26/16 06:19 Hgb 12.0 g/dL (12.0-18.0) 09/26/16 06:19 Hct 36.1 % (35.0-51.0) 09/26/16 06:19 MCV 88.8 fL (80.0-94.0) 09/26/16 06:19 MCH 29.6 pg (27.0-31.0) 09/26/16 06:19 MCHC 33.3 g/dL (33.0-37.0) 09/26/16 06:19 RDW 13.6 % (11.5-14.5) 09/26/16 06:19 Plt Count 120 K/uL (130-400) L 09/26/16 06:19 MPV 7.4 fL (7.2-11.7) 09/26/16 06:19 Neut % (Auto) 67.3 % (50.0-75.0) 09/26/16 06:19 Lymph % (Auto) 19.0 % (20.0-40.0) L 09/26/16 06:19 [place] % (Auto) 10.1 % (0.0-10.0) H 09/26/16 06:19 Eos % (Auto) 2.7 % (0.0-4.0) 09/26/16 06:19 Baso % (Auto) 0.9 % (0.0-2.0) 09/26/16 06:19 Neut # 3.8 K/uL (1.8-7.0) 09/26/16 06:19 Lymph # 1.1 K/uL (1.0-4.3) 09/26/16 06:19 [place] # 0.6 K/uL (0.0-0.8) 09/26/16 06:19 Eos # 0.2 K/uL (0.0-0.7) 09/26/16 06:19 Baso # 0.0 K/uL (0.0-0.2) 09/26/16 06:19 PT 13.6 SECONDS (9.7-12.2) H 09/21/16 06:41 INR 1.2 09/21/16 06:41 APTT 33 SECONDS (21-34) 09/18/16 07:01 Sodium 138 mmol/L (132-148) 09/26/16 06:19 Potassium 4.1 mmol/L (3.6-5.2) 09/26/16 06:19 Chloride 104 mmol/L (98-107) 09/26/16 06:19 Carbon Dioxide 21 mmol/L (22-30) L 09/26/16 06:19 Anion Gap 17 (10-20) 09/26/16 06:19 BUN 11 mg/dL (9-20) 09/26/16 06:19 Creatinine 0.8 MG/DL (0.8-1.5) 09/26/16 06:19 Est GFR ( Amer) > 60 09/26/16 06:19 Est GFR (Non-Af Amer) > 60 09/26/16 06:19 Random Glucose 104 mg/dL (75-110) 09/26/16 06:19 Calcium 8.2 mg/dl (8.6-10.4) L 09/26/16 06:19 Phosphorus 3.6 mg/dL (2.5-4.5) 09/26/16 06:19 Magnesium 2.0 mg/dL (1.6-2.3) 09/26/16 06:19 Total Bilirubin 0.7 mg/dL (0.2-1.3) 09/26/16 06:19 AST 30 U/L (17-59) 09/26/16 06:19 ALT 44 U/L (21-72) 09/26/16 06:19 Alkaline Phosphatase 71 U/L (38-126) 09/26/16 06:19 Total Protein 6.4 g/dL (6.3-8.3) 09/26/16 06:19 Albumin 3.5 g/dL (3.5-5.0) 09/26/16 06:19 Globulin 2.9 gm/dL (2.2-3.9) 09/26/16 06:19 Albumin/Globulin Ratio 1.2 (1.0-2.1) 09/26/16 06:19 Blood Type O POSITIVE 09/24/16 06:29 Antibody Screen Negative 09/24/16 06:29 - Hospital Course Hospital Course: 61-year-old male with history of hypertension atherosclerosis, chronic smoker, history of CVA with the right-sided weakness. Patient hospitalized with worsening symptoms of dizziness. Findings were suggestive of severe bilateral carotid artery stenosis, and needing immediate intervention. Patient meanwhile needed evaluation for cardiology clearance. Patient was hospitalized, and cardiology clearance was attempted. Patient underwent angiogram, showing evidence of two-vessel disease, needed intervention. Dr. Delarosa did PTCA intervention to the two-vessel disease. Patient started doing well in the overall situation. Altered few days later patient underwent a left-sided carotid endarterectomy. Successfully patient tolerated the procedure Clinically patient is stable. Final diagnosis severe atherosclerotic heart disease. CAD, status post a stent. Carotid artery stenosis. History of CVA. Chronic smoker. Patient medications reviewed in He will continue the aspirin, Plavix, metoprolol. Advised him to quit smoking. follow up with the vascular surgery, cardiology, and in my office. Discharge Exam - Head Exam Head Exam: ATRAUMATIC, NORMOCEPHALIC Discharge Plan - Discharge Medications Prescriptions: Aspirin [Ecotrin] 81 mg PO DAILY #30 tabec Tamsulosin [Flomax] 0.4 mg PO DAILY #30 cap Metoprolol Succinate 25 mg PO DAILY #30 tab.er.24h Famotidine [Pepcid] 20 mg PO BID #60 tab Clopidogrel [Plavix] 75 mg PO DAILY #30 tab - Follow Up Plan Condition: GOOD Disposition: HOME/ ROUTINE Instructions: Myocardial Infarction (DC), Coronary Artery Disease (DC), Benign Prostatic Hypertrophy (DC), Hypertension (DC), Hypertension (GEN)
--- NOTE | 2016-10-02 03:34 | CARDCATH ---
PROCEDURE DATE: 09/18/2016 PROCEDURES: 1. Left heart catheterization. 2. Coronary angiogram. CLINICAL INDICATIONS: 1. Coronary artery disease. 2. Carotid artery disease. 3. Hypertension. 4. Hyperlipidemia. 5. Stroke. REFERRING PHYSICIAN: Dr. Moreno Fung. PERFORMING PHYSICIAN: Dr. Gunner Delarosa. PROCEDURE: After informed consent, patient was prepped and draped in the usual sterile fashion, 2% l idocaine was given in the right wrist for local anesthesia. Using micropuncture technique, a 6-Frenc h sheath was introduced into right radial artery. Using the usual diagnostic catheter, left heart ca theterization and coronary angiogram were performed. The patient tolerated the procedure well. FINDINGS: 1. Left main coronary artery is patent. 2. Proximal and distal LAD is patent. Mid LAD has a 30% nonocclusive stenosis. Diagonal branches a re patent. 3. Left circumflex is patent. However, large obtuse marginal-1 artery has 99% stenosis. 4. Right coronary artery is dominant. Proximal RCA has an 85% stenosis. Mid and distal RCA is brower nt. 5. LV ejection fraction is approximately 40%. Global hypokinesis. EDP is 24. No gradient across t he aortic valve. IMPRESSION: 1. Two-vessel coronary artery disease. 2. Moderate left ventricular dysfunction. RECOMMENDATIONS: Recommend coronary intervention of left circumflex and right coronary artery. Gunner Delarosa MD cc: [id number] TT: 10/02/2016 03:33:29 tn
--- NOTE | 2016-10-09 18:22 | CP.PCM.PN ---
Subjective - Date & Time of Evaluation Date of Evaluation: 09/19/16 Time of Evaluation: 20:40 - Subjective Subjective: Patient is currently doing well. Scheduled to have the cardiac procedure. No chest pain or shortness of breath. Spoke to the dye range tender. Will continue the current treatment. Patient is currently admitted with the bilateral carotid artery stenosis, with the severe. Objective - Vital Signs/Intake and Output Vital Signs (last 24 hours): Temp Pulse Resp BP Pulse Ox 98.2 F 96 H 18 113/80 110 H 09/26/16 12:00 09/26/16 15:49 09/26/16 15:49 09/26/16 12:00 09/26/16 15:49 - Labs Labs: 09/26/16 06:19 09/26/16 06:19 PT 13.6 SECONDS (9.7-12.2) H 09/21/16 06:41 INR 1.2 09/21/16 06:41 APTT 33 SECONDS (21-34) 09/18/16 07:01 Assessment and Plan (1) Carotid stenosis, bilateral Status: Acute (2) CVA (cerebral vascular accident) Status: Acute (3) HTN (hypertension) Status: Acute
--- NOTE | 2016-10-09 18:23 | CP.PCM.PN ---
Subjective - Date & Time of Evaluation Date of Evaluation: 09/21/16 Time of Evaluation: 19:00 - Subjective Subjective: Patient is currently having no active chest pain. Denies any nausea vomiting. Patient is currently being monitored closely. Cardiology procedure. Vital signs stable otherwise. Will continue current treatment Objective - Vital Signs/Intake and Output Vital Signs (last 24 hours): Temp Pulse Resp BP Pulse Ox 98.2 F 96 H 18 113/80 110 H 09/26/16 12:00 09/26/16 15:49 09/26/16 15:49 09/26/16 12:00 09/26/16 15:49 - Labs Labs: 09/26/16 06:19 09/26/16 06:19 PT 13.6 SECONDS (9.7-12.2) H 09/21/16 06:41 INR 1.2 09/21/16 06:41 APTT 33 SECONDS (21-34) 09/18/16 07:01 Assessment and Plan (1) Carotid stenosis, bilateral Status: Acute (2) CVA (cerebral vascular accident) Status: Acute (3) HTN (hypertension) Status: Acute
--- NOTE | 2016-10-09 18:25 | CP.PCM.PN ---
Subjective - Date & Time of Evaluation Date of Evaluation: 09/22/16 Time of Evaluation: 20:00 - Subjective Subjective: Patient underwent a PTCA, tolerated the procedure well yesterday. Currently on aspirin, Plavix. If the bed. No chest pain or shortness of breath. Urinary symptoms negative. Vital signs stable clinical stable otherwise. Chest good air entry bilaterally regular heart sound. Nontender abdomen. Will continue the current treatment. Status post a CAD, PTCA. Stroke. Carotid artery stenosis. Scheduled to have the surgical intervention for carotid endarterectomy Objective - Vital Signs/Intake and Output Vital Signs (last 24 hours): Temp Pulse Resp BP Pulse Ox 98.2 F 96 H 18 113/80 110 H 09/26/16 12:00 09/26/16 15:49 09/26/16 15:49 09/26/16 12:00 09/26/16 15:49 - Labs Labs: 09/26/16 06:19 09/26/16 06:19 PT 13.6 SECONDS (9.7-12.2) H 09/21/16 06:41 INR 1.2 09/21/16 06:41 APTT 33 SECONDS (21-34) 09/18/16 07:01 Assessment and Plan (1) Carotid stenosis, bilateral Status: Acute (2) CVA (cerebral vascular accident) Status: Acute (3) HTN (hypertension) Status: Acute
--- NOTE | 2016-10-09 18:26 | CP.PCM.PN ---
Subjective - Date & Time of Evaluation Date of Evaluation: 09/23/16 Time of Evaluation: 19:00 - Subjective Subjective: Patient is currently having no active symptoms. Denies any chest pain or shortness of breath. Vital signs stable. On examination: HEENT PERRLA, neck supple No thyromegaly was noted and no cervical adenopathy noted Chest bilateral good air entry, no wheezing or rales noted CVS regular heart sound, no murmur Abdomen soft and no organomegaly Extremities no pedal edema, no leg swelling, pedal pulses are good. Right side, CVA. Patient is scheduled to have the surgery tomorrow Objective - Vital Signs/Intake and Output Vital Signs (last 24 hours): Temp Pulse Resp BP Pulse Ox 98.2 F 96 H 18 113/80 110 H 09/26/16 12:00 09/26/16 15:49 09/26/16 15:49 09/26/16 12:00 09/26/16 15:49 - Labs Labs: 09/26/16 06:19 09/26/16 06:19 PT 13.6 SECONDS (9.7-12.2) H 09/21/16 06:41 INR 1.2 09/21/16 06:41 APTT 33 SECONDS (21-34) 09/18/16 07:01 Assessment and Plan (1) Carotid stenosis, bilateral Status: Acute (2) CVA (cerebral vascular accident) Status: Acute (3) HTN (hypertension) Status: Acute
--- NOTE | 2016-10-09 18:27 | CP.PCM.PN ---
Subjective - Date & Time of Evaluation Date of Evaluation: 09/24/16 Time of Evaluation: 20:00 - Subjective Subjective: Patient is doing well at this time, awake and responding. Underwent a carotid endarterectomy. On the left side. Vital signs stable. Chest good air entry bilaterally regular heart sound Status post carotid endarterectomy. Status post a PTCA, history of CVA and hypertension and COPD Objective - Vital Signs/Intake and Output Vital Signs (last 24 hours): Temp Pulse Resp BP Pulse Ox 98.2 F 96 H 18 113/80 110 H 09/26/16 12:00 09/26/16 15:49 09/26/16 15:49 09/26/16 12:00 09/26/16 15:49 - Labs Labs: 09/26/16 06:19 09/26/16 06:19 PT 13.6 SECONDS (9.7-12.2) H 09/21/16 06:41 INR 1.2 09/21/16 06:41 APTT 33 SECONDS (21-34) 09/18/16 07:01 Assessment and Plan (1) Carotid stenosis, bilateral Status: Acute (2) CVA (cerebral vascular accident) Status: Acute (3) HTN (hypertension) Status: Acute
--- NOTE | 2016-10-09 18:27 | CP.PCM.PN ---
Subjective - Date & Time of Evaluation Date of Evaluation: 09/25/16 Time of Evaluation: 18:27 - Subjective Subjective: Patient is doing well at this time, awake and responding. Underwent a carotid endarterectomy. On the left side. Vital signs stable. Chest good air entry bilaterally regular heart sound Status post carotid endarterectomy. Status post a PTCA, history of CVA and hypertension and COPD Objective - Vital Signs/Intake and Output Vital Signs (last 24 hours): Temp Pulse Resp BP Pulse Ox 98.2 F 96 H 18 113/80 110 H 09/26/16 12:00 09/26/16 15:49 09/26/16 15:49 09/26/16 12:00 09/26/16 15:49 - Labs Labs: 09/26/16 06:19 09/26/16 06:19 PT 13.6 SECONDS (9.7-12.2) H 09/21/16 06:41 INR 1.2 09/21/16 06:41 APTT 33 SECONDS (21-34) 09/18/16 07:01 Assessment and Plan (1) Carotid stenosis, bilateral Status: Acute (2) CVA (cerebral vascular accident) Status: Acute (3) HTN (hypertension) Status: Acute
== END 2016-09-26 17:56 | disposition home or self-care (01) | DRG 26 ==
LOC: C.ER 13:44 → C.9E 15:27 → C.6T 20:05 → OBSVTOIN 09-18 10:32 → C.9I 09-18 10:46
PROVIDERS: ADMIT Internal Medicine Cardiovascular Disease; ATTEND Internal Medicine Cardiovascular Disease
PROC: 4A023N7 Measurement of Cardiac Sampling and Pressure, Left Heart, Percutaneous Approach (ICD-10-PCS; 2016-09-18)
PROC: B2151ZZ Fluoroscopy of Left Heart using Low Osmolar Contrast (ICD-10-PCS; 2016-09-18)
PROC: B2111ZZ Fluoroscopy of Multiple Coronary Arteries using Low Osmolar Contrast (ICD-10-PCS; 2016-09-18)
PROC: 027135Z Dilation of Coronary Artery, Two Arteries with Two Drug-eluting Intraluminal Devices, Percutaneous Approach (ICD-10-PCS; 2016-09-21)
PROC: 03CL3ZZ Extirpation of Matter from Left Internal Carotid Artery, Percutaneous Approach (ICD-10-PCS; principal; 2016-09-24 07:45)
DX: I65.23 Occlusion and stenosis of bilateral carotid arteries (principal); I69.351 Hemiplegia and hemiparesis following cerebral infarction affecting right dominant side; G45.9 Transient cerebral ischemic attack, unspecified; I25.10 Atherosclerotic heart disease of native coronary artery without angina pectoris; I10 Essential (primary) hypertension; N40.1 Benign prostatic hyperplasia with lower urinary tract symptoms; R33.8 Other retention of urine; R31.0 Gross hematuria; E78.5 Hyperlipidemia, unspecified; F17.210 Nicotine dependence, cigarettes, uncomplicated; I69.320 Aphasia following cerebral infarction

== ENCOUNTER 2016-11-03 20:15 | Inpatient (IN) | payer OTHER, MEDICARE ==
[2016-11-03 20:15] VITALS: BMI 25.8
--- NOTE | 2016-11-03 21:04 | C.PDOC ---
History Of Present Illness A 61 y/o male who was pending for a right carotid endarterectomy with dr Aguilera now c/o dizziness earlier today. Pt notes having a left carotid endarterectomy a month ago. 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 Pt denies any complaints at this time. Time Seen by Provider: 11/03/16 20:40 Chief Complaint (Nursing): Medical Clearance History Per: Patient History/Exam Limitations: no limitations Onset/Duration Of Symptoms: Days Current Symptoms Are (Timing): Still Present Severity: None Reports Recently: Treated By A Physician Recent travel outside of the [place]: No Additional History Per: Patient Past Medical History Reviewed: Historical Data, Nursing Documentation, Vital Signs Vital Signs: Last Vital Signs Temp 97.6 F 11/03/16 22:31 Pulse 76 11/03/16 22:31 Resp 20 11/03/16 22:31 BP 122/76 11/03/16 22:31 Pulse Ox 98 11/03/16 22:31 - Medical History PMH: Hypercholesterolemia - [facility] Procedures DILATION OF 2 COR ART WITH 2 DRUG-ELUT, PERC APPROACH (09/18/16) EXTIRPATION OF MATTER FROM L INT CAROTID, PERC APPROACH (09/18/16) FLUOROSCOPY OF LEFT HEART USING LOW OSMOLAR CONTRAST (09/18/16) FLUOROSCOPY OF MULT COR ART USING L OSM CONTRAST (09/18/16) MEASURE OF CARDIAC SAMPL & PRESSURE, L HEART, PERC APPROACH (09/18/16) Family History: States: Unknown Family Hx - Social History Hx Alcohol Use: No (used to ,red wine daily) Hx Substance Use: No - Immunization History Hx Tetanus Toxoid Vaccination: No Hx Influenza Vaccination: No Hx Pneumococcal Vaccination: No Review Of Systems Except As Marked, All Systems Reviewed And Found Negative. Constitutional: Negative for: Fever, Chills Cardiovascular: Negative for: Chest Pain, Palpitations, Edema, Light Headedness Physical Exam - Physical Exam Appears: Non-toxic, No Acute Distress, Other (Right body weakness) Skin: Warm, Dry Head: Atraumatic, Normacephalic Eye(s): bilateral: Normal Inspection Chest: Symmetrical Cardiovascular: Rhythm Regular Respiratory: Normal Breath Sounds, No Rales, No Rhonchi, No Wheezing Gastrointestinal/Abdominal: Soft, No Tenderness Neurological/Psych: Oriented x3 (Awake and alert), No Normal Speech (Non-verbal from prior stroke), Normal Cognition ED Course And Treatment - Laboratory Results Result Diagrams: 11/03/16 21:09 11/03/16 21:09 Lab Interpretation: Normal (inr and trop wnl) ECG: Interpreted By Me ECG Rhythm: Sinus Rhythm ECG Interpretation: Normal Rate From EC O2 Sat by Pulse Oximetry: 100 (RA) Pulse Ox Interpretation: Normal - Radiology CXR: Interpreted by Me CXR Interpretation: Yes: No Acute Disease Reevaluation Time: 22:00 Reassessment Condition: Improved - Physician Consult Information Outcome Of Conversation: 2044: d/w Dr. Fung and Dr. Aguilera- ramos to tele Obs. Medical Decision Making Medical Decision Makin61 y/o male pending for carotid endarterectomy with Dr. Aguilera Plans: EKg, Blood labs, CXR, IV fluids Disposition Doctor Will See Patient In The: Hospital Counseled Patient/Family Regarding: Studies Performed, Diagnosis - Disposition Disposition: HOSPITALIZED Disposition Time: 20:45 Condition: GOOD - Clinical Impression Clinical Impression: Dizziness - Scribe Statement The provider has reviewed the documentation as recorded by the Scribelaine anderson All medical record entries made by the Mroiahibelaine were at my direction and personally dictated by me. I have reviewed the chart and agree that the record accurately reflects my personal performance of the history, physical exam, medical decision making, and the department course for this patient. I have also personally directed, reviewed, and agree with the discharge instructions and disposition.
[2016-11-03 21:14] LABS: BASO % 0.8 % (0.0-2.0); EOS # 0.2 K/uL (0.0-0.7); EOS % 4.2 % (0.0-4.0); HEMATOCRIT 38.4 % (35.0-51.0); LYMPH # 1.4 K/uL (1.0-4.3); LYMPH % 26.7 % (20.0-40.0); MEAN CELL VOLUME 86.6 fL (80.0-94.0); MEAN CORPUSCULAR HEMOGLOBIN 29.6 pg (27.0-31.0); MEAN CORPUSCULAR HGB CONC 34.2 g/dL (33.0-37.0); MEAN PLATELET VOLUME 7.2 fL (7.2-11.7); MONO # 0.3 K/uL (0.0-0.8); MONO % 6.1 % (0.0-10.0); RED CELL DISTRIBUTION WIDTH 13.6 % (11.5-14.5); WHITE BLOOD COUNT 5.4 K/uL (4.8-10.8)
[2016-11-03] MEDS ORDERED: Aspirin 325 mg EC Tablets PO STA (21:15)
[2016-11-03 21:23] LABS: INR 1.3
[2016-11-03 21:24] LABS: CHLORIDE 100 mmol/L (98-107)
[2016-11-03 21:25] LABS: POTASSIUM 3.9 mmol/L (3.6-5.2); SODIUM 139 mmol/L (132-148)
[2016-11-03 21:27] LABS: GFR AFRICAN-AMERICAN > 60
[2016-11-03 21:28] LABS: ALB/GLOB RATIO 1.4 (1.0-2.1); ALKALINE PHOSPHATASE 82 U/L (38-126); ALT/SGPT 14 U/L (21-72); AST/SGOT 21 U/L (17-59); BILIRUBIN,TOTAL 0.9 mg/dL (0.2-1.3); BLOOD UREA NITROGEN 18 mg/dL (9-20); CALCIUM 8.8 mg/dl (8.6-10.4); CARBON DIOXIDE 26 mmol/L (22-30); GLUCOSE,RANDOM 140 mg/dL (75-110); TOTAL PROTEIN 7.4 g/dL (6.3-8.3)
--- NOTE | 2016-11-03 23:45 | CP.PCM.CON ---
History of Present Illness - History of Present Illness History of Present Illness: SURGERY CONSULT NOTE FOR DR. ROMO 61M presents to [facility] for pre-op for a surgery he is to have tomorrow by Dr. Romo. Patient is scheduled for a right carotid endarectomy tomorrow morning. He recently had the left endarectomy. Has no current new complaints. PMH: HTN, Artherosclerosis, CVA(right hemiparesis) PSH: Left CEA Social: denies tobacco, alcohol illicit drugs Allergies: NKDA Past Patient History - Infectious Disease Hx of Infectious Diseases: None - Past Medical History & Family History Past Medical History?: Yes - Past Social History Smoking Status: Former Smoker - CARDIAC Hx Hypercholesterolemia: Yes - NEUROLOGICAL HX Cerebrovascular Accident: Yes (12 YEARS AGO) - MUSCULOSKELETAL/RHEUMATOLOGICAL Hx Falls: No - PSYCHIATRIC Hx Substance Use: No - SURGICAL HISTORY Hx Herniorrhaphy: Yes - ANESTHESIA Hx Anesthesia: Yes Hx Anesthesia Reactions: No Meds Allergies/Adverse Reactions: Allergies Allergy/AdvReac Type Severity Reaction Status Date / Time No Known Allergies Allergy Verified 09/17/16 13:52 - Medications Medications: Current Medications Acetaminophen (Tylenol 325mg Tab) 650 mg PO Q6 PRN PRN Reason: Fever >100.4 F Sodium Chloride (Sodium Chloride 0.9%) 1,000 mls @ 100 mls/hr IV .Q10H DUNIA Physical Exam - Constitutional Appears: Non-toxic, No Acute Distress - Head Exam Head Exam: ATRAUMATIC - Eye Exam Eye Exam: EOMI, PERRL - ENT Exam ENT Exam: Mucous Membranes Moist - Respiratory Exam Respiratory Exam: Clear to Auscultation Bilateral, NORMAL BREATHING PATTERN - Cardiovascular Exam Cardiovascular Exam: REGULAR RHYTHM, +S1, +S2 - GI/Abdominal Exam GI & Abdominal Exam: Soft. absent: Distended, Firm, Rebound, Rigid, Tenderness - Extremities Exam Extremities exam: Positive for: tenderness (right lower leg tenderness). Negative for: pedal edema - Neurological Exam Neurological exam: Alert, Oriented x3 Additional comments: right sided body weakness due to stroke - Psychiatric Exam Psychiatric exam: Normal Affect, Normal Mood - Skin Skin Exam: Dry, Intact, Normal Color, Warm Results - Vital Signs Recent Vital Signs: Last Vital Signs Temp 97.6 F 11/03/16 22:31 Pulse 76 11/03/16 22:31 Resp 20 11/03/16 22:31 BP 122/76 11/03/16 22:31 Pulse Ox 100 11/03/16 23:19 - Labs Result Diagrams: 11/03/16 21:09 11/03/16 21:09 Labs: Laboratory Results - last 24 hr 11/03/16 11/03/16 11/03/16 21:09 21:09 21:09 WBC 5.4 RBC 4.44 Hgb 13.1 Hct 38.4 MCV 86.6 MCH 29.6 MCHC 34.2 RDW 13.6 Plt Count 170 MPV 7.2 Neut % (Auto) 62.2 Lymph % (Auto) 26.7 [place] % (Auto) 6.1 Eos % (Auto) 4.2 H Baso % (Auto) 0.8 Neut # 3.4 Lymph # 1.4 [place] # 0.3 Eos # 0.2 Baso # 0.0 PT 14.3 H INR 1.3 APTT 31 Sodium 139 Potassium 3.9 Chloride 100 Carbon Dioxide 26 Anion Gap 17 BUN 18 Creatinine 0.9 Est GFR ( Amer) > 60 Est GFR (Non-Af Amer) > 60 Random Glucose 140 H Calcium 8.8 Total Bilirubin 0.9 AST 21 ALT 14 L D Alkaline Phosphatase 82 Troponin I < 0.0120 Total Protein 7.4 Albumin 4.2 Globulin 3.1 Albumin/Globulin Ratio 1.4 Assessment & Plan - Assessment and Plan (Free Text) Assessment: 61M presents with carotid stenosis and is scheduled for right carotid endarectomy 11/04/16 Plan: - NPO after midnight, IVF - pre op labs, INR, PTT - CXR, EKG Further recs discuss with Dr. Ale Fischer, PGY1
[2016-11-04] MEDS: Sodium Chloride 0.9% 1,000 ML IV SCH ×4 (00:53→23:28)
[2016-11-04] MEDS ORDERED: Lidocaine 1% Inj (20ml) ONE (07:24)
[2016-11-04] MEDS ORDERED: Bacitracin 50,000 UNIT in Sodium Chloride 0.9% Irrig 1,000 ML IR SCH (07:24)
[2016-11-04] MEDS ORDERED: ceFAZolin IV 2 gm in Dextrose 0 GM/0 ML BAG IVPB ONE (07:51)
[2016-11-04] MEDS ORDERED: Lactated Ringer's 1,000 ML IV ONE ×2 (07:55→08:00)
[2016-11-04] MEDS ORDERED: Remifentanil 1 mg/3 ml Vial IV ONE (08:01)
[2016-11-04] MEDS ORDERED: Etomidate 20 mg/10ml Inj IV ONE (08:03)
[2016-11-04] MEDS ORDERED: ceFAZolin 1 gm FROZEN Premix 1 GM/50 ML ML IVPB ONE (08:17)
[2016-11-04] MEDS ORDERED: HEPARIN-NS 5,000 UNITS/500 ML 5,000 UNIT/500 ML BAG IV ONE (08:17)
[2016-11-04] MEDS ORDERED: Lidocaine 4% (Laryng-O-Jet) Kit MM ONE (08:18)
--- NOTE | 2016-11-04 09:17 | RAD ---
PROCEDURE: CHEST RADIOGRAPH, 1 VIEW HISTORY: SOB COMPARISON: 09/22/2012 FINDINGS: LUNGS: Mild venous congestion with patchy bibasilar airspace opacities. Biapical pleural thickening. PLEURA: As above. CARDIOVASCULAR: Cardiomegaly. Calcification of the aortic knob. OSSEOUS STRUCTURES: Degenerative changes in the spine and shoulders. VISUALIZED UPPER ABDOMEN: Normal. OTHER FINDINGS: None. IMPRESSION: Mild venous congestion with patchy bibasilar airspace opacities. Biapical pleural thickening.
[2016-11-04] MEDS ORDERED: Thrombin Topical 20,000 Intl Units Spray Kit TOP ONE (10:16)
[2016-11-04] MEDS ORDERED: HYDROmorphone 0.5 mg/0.5 ml ISec IVP PRN ×2 (11:15→12:10)
[2016-11-04] MEDS ORDERED: Nitroglycerin 2% Ointment Foilpak UD TOP PRN (11:38)
--- NOTE | 2016-11-04 11:43 | PCM.SURG1 ---
Surgeon's Initial Post Op Note - Surgeon's Notes Surgeon: Dr. Aguilera Courtroom Clerk: Dr. Duff, Dr. Read Type of Anesthesia: General Endo Pre-Operative Diagnosis: carotid artery stenosis Operative Findings: artherotic plaque Post-Operative Diagnosis: carotid artery stenosis Operation Performed: right carotid endarterectomy Specimen/Specimens Removed: artherotic plaque Estimated Blood Loss: EBL {In ML}: 250 Blood Products Given: N/A Drains Used: Fords (Red rubber catheter ) Post-Op Condition: Good Date of Surgery/Procedure: 11/04/16 Time of Surgery/Procedure: 11:43
--- NOTE | 2016-11-04 12:20 | OP ---
PROCEDURE DATE: 11/04/2016 PREOPERATIVE DIAGNOSIS: Carotid stenosis, right side. PROCEDURE CARRIED OUT: Right carotid endarterectomy. SURGEON: Quentin Aguilera Jr., MD [employer] PROJECT MANAGER: Dr. Read and Dr. Duff, residents. ANESTHESIOLOGIST: Rafaela Moreno CRNA. INDICATIONS: The patient is an older middle-aged man who had previously had a left hemispheric strok e with right side hemiplegia who had been evaluated and found to have right carotid stenosis also of almost equal degree. Yesterday he experienced dizziness and was admitted through the Emergency Room. OPERATIVE FINDINGS: 1. The plaque was primarily in the common carotid artery. 2. The vessel itself was of relatively small size, both in the common and internal carotid artery. 3. The rest of the intraoperative findings were unremarkable except that a Scoma shunt was used and a bovine pericardial patch was placed. The patient awoke without any new deficits. PROCEDURE: The patient was given general anesthesia and intravenous antibiotics. Venodyne boots wer e applied. The incision was made exposing the common internal and external carotid arteries. After exposure of the vessels, heparin was given. The vessels were clamped and a standard endarterectomy c arried out after insertion of the shunt. After this had been carried out, we had clean endpoints. W e then removed the shunt, closed the patch in place, and had the appropriate backflow maneuvers. The patient awoke without any neurological deficits. We had to spend a great deal of time in the operat ing room making sure there was hemostasis because the patient had heparin, Plavix and aspirin onboard . Blood loss of procedure was 200-250 mL. OPERATION CARRIED OUT: Right carotid endarterectomy. Quentin Aguilera Jr., MD cc:Moreno Fung MD 56 TT: 11/04/2016 12:19:27 vanessa
[2016-11-04] MEDS ORDERED: Sodium Chloride 0.9% 1,000 ML IV ONE (13:30)
--- NOTE | 2016-11-04 15:52 | CP.PCM.CON ---
<Boaz Cruz - Last Filed: 11/04/16 15:49> History of Present Illness - History of Present Illness History of Present Illness: ICU Consult note THis is a 61 yo M with hx of HTN, Artherosclerosis, CVA(right hemiparesis) and recent left endarterectomy that was admitted for right endarterectomy now in ICU s/p procedure for monitoring. Pt states that he feels well and that he has minimal pain. He denies any other complaints. Denies fevers, chills, chest pain , trouble swallowing/talking, sob, nausea or vomiting. PMH: HTN, Artherosclerosis, CVA(right hemiparesis) PSH: Left CEA Social: denies tobacco, alcohol illicit drugs Allergies: NKDA Review of Systems - Review of Systems All systems: reviewed and no additional remarkable complaints except (where noted in HPI) Past Patient History - Infectious Disease Hx of Infectious Diseases: None - Past Medical History & Family History Past Medical History?: Yes - Past Social History Smoking Status: Former Smoker - CARDIAC Hx Hypercholesterolemia: Yes - NEUROLOGICAL HX Cerebrovascular Accident: Yes (12 YEARS AGO) - HEENT Hx HEENT Problems: Yes Hx Deafness: Yes (Right Ear limited hearing) - RENAL Hx Chronic Kidney Disease: No - ENDOCRINE/METABOLIC Hx Endocrine Disorders: No - HEMATOLOGICAL/ONCOLOGICAL Hx Blood Disorders: No - INTEGUMENTARY Hx Dermatological Problems: No - MUSCULOSKELETAL/RHEUMATOLOGICAL Hx Falls: No - GASTROINTESTINAL Hx Gastrointestinal Disorders: No HX Swallowing Problems: No - GENITOURINARY/GYNECOLOGICAL Hx Genitourinary Disorders: No - PSYCHIATRIC Hx Substance Use: No - SURGICAL HISTORY Hx Herniorrhaphy: Yes - ANESTHESIA Hx Anesthesia: Yes Hx Anesthesia Reactions: No Meds Allergies/Adverse Reactions: Allergies Allergy/AdvReac Type Severity Reaction Status Date / Time No Known Allergies Allergy Verified 09/17/16 13:52 - Medications Medications: Current Medications Acetaminophen (Tylenol 325mg Tab) 650 mg PO Q6 PRN PRN Reason: Fever >100.4 F Aspirin (Ecotrin) 81 mg PO DAILY DUNIA Clopidogrel Bisulfate (Plavix) 75 mg PO DAILY [facility] Famotidine (Pepcid) 20 mg PO BID D[facility] Hydromorphone HCl (Dilaudid) 0.5 mg IVP Q5M PRN PRN Reason: Pain, moderate (4-7) Sodium Chloride (Sodium Chloride 0.9%) 1,000 mls @ 100 mls/hr IV .Q10H [facility] Last Admin: 11/04/16 00:53 Dose: 100 mls/hr Cefazolin Sodium (Ancef) 1 gm in 50 mls @ 100 mls/hr IVPB Q8H [facility] Stop: 11/05/16 08:29 Metoprolol Succinate (Toprol Xl) 25 mg PO DAILY [facility] Morphine Sulfate (Morphine) 2 mg IVP Q4 PRN PRN Reason: Pain, moderate (4-7) Morphine Sulfate (Morphine) 4 mg IVP Q4H PRN PRN Reason: Pain, severe (8-10) Nitroglycerin (Nitro-Bid 2% Oint) 1 ea TOP Q8 PRN PRN Reason: Diastolic blood pressure Rosuvastatin Calcium (Crestor) 20 mg PO HS [facility] Tamsulosin HCl (Flomax) 0.4 mg PO DAILY [facility] Physical Exam - Constitutional Appears: Well, Non-toxic, No Acute Distress - Head Exam Head Exam: ATRAUMATIC, NORMOCEPHALIC - Eye Exam Eye Exam: Normal appearance Pupil Exam: PERRL - ENT Exam ENT Exam: Mucous Membranes Moist - Neck Exam Additional comments: bandages over right side neck in place, C/D/I. - Respiratory Exam Respiratory Exam: Clear to Auscultation Bilateral, NORMAL BREATHING PATTERN - Cardiovascular Exam Cardiovascular Exam: +S1, +S2 - GI/Abdominal Exam GI & Abdominal Exam: Normal Bowel Sounds, Soft - Extremities Exam Extremities exam: Positive for: normal inspection Additional comments: Right sided contraction noted - Neurological Exam Neurological exam: Alert, Oriented x3 Additional comments: right sided hemiparesis from old CVA - Skin Skin Exam: Dry, Warm Results - Vital Signs Recent Vital Signs: Last Vital Signs Temp 98.9 F 11/04/16 11:35 Pulse 92 H 11/04/16 11:35 Resp 19 11/04/16 11:35 BP 125/71 11/04/16 11:35 Pulse Ox 93 L 11/04/16 11:35 - Labs Result Diagrams: 11/03/16 21:09 11/03/16 21:09 Labs: Laboratory Results - last 24 hr 11/03/16 11/03/16 11/03/16 21:09 21:09 21:09 WBC 5.4 RBC 4.44 Hgb 13.1 Hct 38.4 MCV 86.6 MCH 29.6 MCHC 34.2 RDW 13.6 Plt Count 170 MPV 7.2 Neut % (Auto) 62.2 Lymph % (Auto) 26.7 [place] % (Auto) 6.1 Eos % (Auto) 4.2 H Baso % (Auto) 0.8 Neut # 3.4 Lymph # 1.4 [place] # 0.3 Eos # 0.2 Baso # 0.0 PT 14.3 H INR 1.3 APTT 31 Sodium 139 Potassium 3.9 Chloride 100 Carbon Dioxide 26 Anion Gap 17 BUN 18 Creatinine 0.9 Est GFR ( Amer) > 60 Est GFR (Non-Af Amer) > 60 Random Glucose 140 H Calcium 8.8 Total Bilirubin 0.9 AST 21 ALT 14 L D Alkaline Phosphatase 82 Troponin I < 0.0120 Total Protein 7.4 Albumin 4.2 Globulin 3.1 Albumin/Globulin Ratio 1.4 Assessment & Plan - Assessment and Plan (Free Text) Assessment: 61 yo M s/p right endarterectomy POD#0 Plan: Neuro: AAOx3 Cont to monitor Cardiovascular: Hemodynamically stable Cont home meds with parameters Pulmonary: Saturating well No resp distress Gastrointestinal: Liquid diet for now Advance as tolerated per surgery Hematology: Monitor for bleeding Follow repeat H/H Endocrine: No acute issues Renal: No acute issues Follow labs IVF at maintenance Infectious Disease: Afebrile No leukocytosis Getting jacinta-operative abx Monitor GI Prophylaxis: Pepcid DVT Prophylaxis: Not indicated at this time <Hunter Ardon S - Last Filed: 11/04/16 18:38> Meds - Medications Medications: Current Medications Acetaminophen (Tylenol 325mg Tab) 650 mg PO Q6 PRN PRN Reason: Fever >100.4 F Aspirin (Ecotrin) 81 mg PO DAILY [facility] Clopidogrel Bisulfate (Plavix) 75 mg PO DAILY [facility] Famotidine (Pepcid) 20 mg PO BID [facility] Hydromorphone HCl (Dilaudid) 0.5 mg IVP Q5M PRN PRN Reason: Pain, moderate (4-7) Sodium Chloride (Sodium Chloride 0.9%) 1,000 mls @ 100 mls/hr IV .Q10H [facility] Last Admin: 11/04/16 16:43 Dose: Not Given Cefazolin Sodium (Ancef) 1 gm in 50 mls @ 100 mls/hr IVPB Q8H [facility] Stop: 11/05/16 08:29 Last Admin: 11/04/16 16:42 Dose: 100 mls/hr Metoprolol Succinate (Toprol Xl) 25 mg PO DAILY [facility] Morphine Sulfate (Morphine) 2 mg IVP Q4 PRN PRN Reason: Pain, moderate (4-7) Morphine Sulfate (Morphine) 4 mg IVP Q4H PRN PRN Reason: Pain, severe (8-10) Nitroglycerin (Nitro-Bid 2% Oint) 1 ea TOP Q8 PRN PRN Reason: Diastolic blood pressure Rosuvastatin Calcium (Crestor) 20 mg PO HS [facility] Tamsulosin HCl (Flomax) 0.4 mg PO DAILY [facility] Results - Vital Signs Recent Vital Signs: Last Vital Signs Temp 97.8 F 11/04/16 13:55 Pulse 78 11/04/16 17:00 Resp 21 11/04/16 17:00 BP 110/63 11/04/16 16:32 Pulse Ox 98 11/04/16 17:00 - Labs Result Diagrams: 11/03/16 21:09 11/03/16 21:09 Labs: Laboratory Results - last 24 hr 11/03/16 11/03/16 11/03/16 21:09 21:09 21:09 WBC 5.4 RBC 4.44 Hgb 13.1 Hct 38.4 MCV 86.6 MCH 29.6 MCHC 34.2 RDW 13.6 Plt Count 170 MPV 7.2 Neut % (Auto) 62.2 Lymph % (Auto) 26.7 [place] % (Auto) 6.1 Eos % (Auto) 4.2 H Baso % (Auto) 0.8 Neut # 3.4 Lymph # 1.4 [place] # 0.3 Eos # 0.2 Baso # 0.0 PT 14.3 H INR 1.3 APTT 31 Sodium 139 Potassium 3.9 Chloride 100 Carbon Dioxide 26 Anion Gap 17 BUN 18 Creatinine 0.9 Est GFR ( Amer) > 60 Est GFR (Non-Af Amer) > 60 Random Glucose 140 H Calcium 8.8 Total Bilirubin 0.9 AST 21 ALT 14 L D Alkaline Phosphatase 82 Troponin I < 0.0120 Total Protein 7.4 Albumin 4.2 Globulin 3.1 Albumin/Globulin Ratio 1.4 Attending/Attestation - Attestation I have personally seen and examined this patient.: Yes I have fully participated in the care of the patient.: Yes I have reviewed all pertinent clinical information: Yes Notes (Text): 11/04/16 18:38 Patient seen and examined. 61 yo M s/p right endarterectomy
[2016-11-04] MEDS: ceFAZolin 1 gm FROZEN Premix 1 GM/50 ML ML IVPB SCH ×2 (16:42→23:30)
[2016-11-05] MEDS: Sodium Chloride 0.9% 1,000 ML IV SCH (05:45)
[2016-11-05 06:35] LABS: CHLORIDE 105 mmol/L (98-107)
[2016-11-05 06:36] LABS: POTASSIUM 4.4 mmol/L (3.6-5.2); SODIUM 141 mmol/L (132-148)
[2016-11-05 06:38] LABS: ALB/GLOB RATIO 0.8 (1.0-2.1); ALKALINE PHOSPHATASE 59 U/L (38-126); ALT/SGPT 11 U/L (21-72); AST/SGOT 14 U/L (17-59); BILIRUBIN,TOTAL 0.6 mg/dL (0.2-1.3); BLOOD UREA NITROGEN 14 mg/dL (9-20); CARBON DIOXIDE 26 mmol/L (22-30); GFR AFRICAN-AMERICAN > 60
[2016-11-05 06:39] LABS: CALCIUM 8.4 mg/dl (8.6-10.4); GLUCOSE,RANDOM 85 mg/dL (75-110); PHOSPHOROUS 3.1 mg/dL (2.5-4.5)
[2016-11-05 06:44] LABS: BASO % 0.5 % (0.0-2.0); EOS # 0.1 K/uL (0.0-0.7); EOS % 1.5 % (0.0-4.0); HEMATOCRIT 35.1 % (35.0-51.0); MEAN CELL VOLUME 88.3 fL (80.0-94.0); MEAN CORPUSCULAR HEMOGLOBIN 29.5 pg (27.0-31.0); MEAN CORPUSCULAR HGB CONC 33.4 g/dL (33.0-37.0); MEAN PLATELET VOLUME 7.6 fL (7.2-11.7); MONO # 0.5 K/uL (0.0-0.8); MONO % 8.9 % (0.0-10.0); NRBC % 0.1 % (0.0-2.0); RED CELL DISTRIBUTION WIDTH 13.8 % (11.5-14.5); WHITE BLOOD COUNT 5.2 K/uL (4.8-10.8)
--- NOTE | 2016-11-05 07:52 | CON ---
DATE: 11/05/2016 REASON FOR CONSULTATION: Status post endarterectomy, new drooling on his left side. CHIEF COMPLAINT: The patient was electively admitted for right-sided carotid endarterectomy. Status post endarterectomy, patient found to have some drooling on his left side of the face. From neurological point of view, I was called in to evaluate him. HISTORY OF PRESENT ILLNESS: The patient is a 61-year-old right-handed male who is known to me from previous hospitalization for his severe carotid artery disease and coronary artery disease. The patient was found to have severe carotid artery disease at that point on examination. Since he had coronary artery disease, he had a stent placement on 09/21/2016 which was followed by a carotid endarterectomy on his left side. This time he was electively admitted for his right-sided carotid endarterectomy. Following the endarterectomy, patient was found to have some drooling on his left side of the face. No history of focal weakness, no history of involuntary movements or change in mental status following this procedure. The patient did have a carotid endarterectomy without any surgical complication. PAST MEDICAL HISTORY: Old stroke left him with aphasia and right-sided spastic hemiparesis, coronary artery disease, carotid artery disease, dyslipidemia. ALLERGIES: No known allergies. SOCIAL HISTORY: No history of alcohol use and smoking at present. He was a former smoker. MEDICATIONS: Ancef, Crestor, Dilaudid, aspirin, Flomax, morphine, nitroglycerin and Plavix. PHYSICAL EXAMINATION: VITAL SIGNS: Blood pressure 117/62, mean arterial pressure of 73, respiratory rate 16, temperature afebrile. NECK: Supple. Postsurgical scar with a dressing on his right side noted. HEART: Sounds are regular. NEUROLOGIC EXAMINATION: MENTAL STATUS: The patient is awake, alert, oriented to person and place. Speech: Motor aphasia consistent with his old stroke which is unchanged on my exam. CRANIAL NERVES: Visual bird intact, pupils reactive to light. Extraocular movements are normal. No nystagmus. No facial sensory deficit. Mild facial asymmetry manifesting as a flattening of the right nasolabial fold, which is old. Good gag. MOTOR: On outstretched hand with eyes closed, no drift noted on his left side. Right side has spastic hemiparesis which is unchanged. DEEP TENDON REFLEXES: Hyperreflexic on the right side; left side was normal response. Plantars are upgoing on the right side; left side was downgoing. SENSORY: No cortical sensory loss. COORDINATION: Uryavc-wohl-htclgo test is intact on the left side. Rapid alternating movement is normal on his left side. CONCLUSION: 1. Upon reviewing his history and neurological examination status post carotid endarterectomy on the right side, there is no long tract sign on his left side at present. 2. Right-sided spastic hemiparesis which is old. BLOOD WORKUP: WBC 5.2, hemoglobin 11. hematocrit 35.1, platelet 120. PT 14.3, INR 1.3, PTT 31. Sodium 141, potassium 4.4, chloride 105, bicarbonate 26, GFR more than 60, calcium 8.4. RECOMMENDATIONS: 1. The patient can be resumed antiplatelets for stroke prophylaxis with proper antihypertensive medication with statin. 2. Physical therapy should be resumed. 3. The patient definitely should have polysomnogram which can be done as outpatient to rule out sleep related breathing disorder including central sleep apnea versus obstructive sleep apnea, which can be done as outpatient. 4. The patient's condition has been discussed with attending, Dr. Fung. The patient will be followed while he is in the hospital. Prashant Kebede MD cc: [id number] TT: 11/05/2016 07:51:34 Confirmation # [id number] Dictation # [id number] vanessa MTDD
[2016-11-05] MEDS: ceFAZolin 1 gm FROZEN Premix 1 GM/50 ML ML IVPB SCH (07:53)
--- NOTE | 2016-11-05 09:20 | CP.PCM.PN ---
Subjective - Date & Time of Evaluation Date of Evaluation: 11/05/16 Time of Evaluation: 14:12 - Subjective Subjective: Vasc Sx: Dr Aguilera Pt S&E. NAEO. BP remained <130 SBP. Denies pain. Minimal sore throat with swallowing. Pt has residual right-sided weakness from previous CVA. Drain removed at bedside. Dressing changed Objective - Vital Signs/Intake and Output Vital Signs (last 24 hours): Temp Pulse Resp BP Pulse Ox 98.4 F 77 23 117/62 98 11/05/16 04:00 11/05/16 07:30 11/05/16 07:30 11/05/16 06:30 11/05/16 05:30 Intake and Output: 11/05/16 11/05/16 06:59 18:59 Intake Total 1910 100 Output Total 1200 0 Balance 710 100 - Medications Medications: Current Medications Acetaminophen (Tylenol 325mg Tab) 650 mg PO Q6 PRN PRN Reason: Fever >100.4 F Aspirin (Ecotrin) 81 mg PO DAILY [facility] Clopidogrel Bisulfate (Plavix) 75 mg PO DAILY [facility] Famotidine (Pepcid) 20 mg PO BID [facility] Last Admin: 11/04/16 19:30 Dose: 20 mg Hydromorphone HCl (Dilaudid) 0.5 mg IVP Q5M PRN PRN Reason: Pain, moderate (4-7) Sodium Chloride (Sodium Chloride 0.9%) 1,000 mls @ 100 mls/hr IV .Q10H [facility] Last Admin: 11/05/16 05:45 Dose: Not Given Metoprolol Succinate (Toprol Xl) 25 mg PO DAILY [facility] Morphine Sulfate (Morphine) 2 mg IVP Q4 PRN PRN Reason: Pain, moderate (4-7) Morphine Sulfate (Morphine) 4 mg IVP Q4H PRN PRN Reason: Pain, severe (8-10) Nitroglycerin (Nitro-Bid 2% Oint) 1 ea TOP Q8 PRN PRN Reason: Diastolic blood pressure Rosuvastatin Calcium (Crestor) 20 mg PO [facility] Last Admin: 11/04/16 21:56 Dose: 20 mg Tamsulosin HCl (Flomax) 0.4 mg PO DAILY [facility] - Labs Labs: 11/05/16 06:20 11/05/16 06:20 PT 14.3 SECONDS (9.7-12.2) H 11/03/16 21:09 INR 1.3 11/03/16 21:09 APTT 31 SECONDS (21-34) 11/03/16 21:09 - Constitutional Appears: Non-toxic, No Acute Distress - Eye Exam Eye Exam: EOMI, Normal appearance - ENT Exam ENT Exam: Mucous Membranes Moist - Neck Exam Additional comments: incision c/d/i, dressing changed - Respiratory Exam Respiratory Exam: absent: Accessory Muscle Use, Respiratory Distress - Cardiovascular Exam Cardiovascular Exam: REGULAR RHYTHM. absent: Tachycardia - GI/Abdominal Exam GI & Abdominal Exam: Soft. absent: Distended, Tenderness - Neurological Exam Neurological Exam: Alert, Awake - Psychiatric Exam Psychiatric exam: Normal Affect, Normal Mood - Skin Skin Exam: Normal Color, Warm Assessment and Plan - Assessment and Plan (Free Text) Assessment: 61M POD#1 s/p right CEA Plan: ok to transfer to med/surg keep one more day for observation clear for D/C tomorrow d/w Dr Ale Vazquez, DO, PGY2
[2016-11-05] MEDS: Metoprolol Succinate 25 mg XL Tab PO SCH (09:36)
--- NOTE | 2016-11-05 14:01 | CP.CCUPN ---
<Boaz Cruz - Last Filed: 11/05/16 13:53> CCU Subjective - Physician Review Subjective (Free Text): 11/05/16 13:53 PGY-1 ICU progress note Pt seen and examined at bedside. No overnight events. Pt says that he is not having much pain at all. Denies fevers, chills, dysphagia, sob/trouble breathing , chest pain, nausea or vomiting. Critical Care Time Spent (in minutes): 35 CCU Objective - Vital Signs / Intake & Output Vital Signs (Last 4 hours): Vital Signs Temp Pulse Resp BP Pulse Ox 11/05/16 12:00 98.2 F 80 18 95 11/05/16 11:30 71 24 97 11/05/16 11:00 72 19 96 11/05/16 10:52 82 17 112/68 97 11/05/16 10:30 74 26 H 122/65 11/05/16 10:00 74 22 96 Intake and Output (Last 8hrs): Intake & Output 11/04/16 11/05/16 11/05/16 22:59 06:59 14:59 Intake Total 1240 1270 820 Output Total 400 1000 600 Balance 840 270 220 Weight 164 lb 9.6 oz Intake: Intake, IV Amount 900 800 500 Left Forearm 900 800 400 Left Hand 100 Oral 340 470 320 Output: Urine 400 1000 600 Urine, Voided 400 1000 600 Other: # Voids Urine, Voided 1 # Bowel Movements 0 0 0 - Physical Exam Head: Positive for: Atraumatic, Normocephalic Pupils: Positive for: PERRL Neck: Positive for: Other (Bandages in place, no strike through bleeding) Respiratory/Chest: Positive for: Clear to Auscultation, Good Air Exchange Cardiovascular: Positive for: Regular Rate and Rhythm, Normal S1, S2 Abdomen: Positive for: Normal Bowel Sounds. Negative for: Tenderness, Distention Upper Extremity: Positive for: NORMAL PULSES, Neurovascularly Intact Lower Extremity: Positive for: NORMAL PULSES, Neurovascularly Intact Neurological: Positive for: Speech Normal, Motor Func Grossly Intact Skin: Positive for: Warm, Dry Psychiatric: Positive for: Alert, Oriented x 3 - Medications Active Medications: Active Medications Generic Name Dose Route Start Last Admin Trade Name Freq PRN Reason Stop Dose Admin Acetaminophen 650 mg 11/03/16 23:33 Tylenol 325mg Tab PO Q6 PRN Fever >100.4 F Aspirin 81 mg 11/05/16 10:00 11/05/16 09:36 Ecotrin PO 81 mg DAILY [facility] Administration Clopidogrel Bisulfate 75 mg 11/05/16 10:00 11/05/16 09:36 Plavix PO 75 mg DAILY [facility] Administration Famotidine 20 mg 11/04/16 18:00 11/05/16 09:36 Pepcid PO 20 mg BID [facility] Administration Hydromorphone HCl 0.5 mg 11/04/16 12:10 Dilaudid IVP Q5M PRN Pain, moderate (4-7) Metoprolol Succinate 25 mg 11/05/16 10:00 11/05/16 09:36 Toprol Xl PO 25 mg DAILY [facility] Administration Morphine Sulfate 2 mg 11/04/16 11:35 Morphine IVP Q4 PRN Pain, moderate (4-7) Morphine Sulfate 4 mg 11/04/16 11:35 Morphine IVP Q4H PRN Pain, severe (8-10) Nitroglycerin 1 ea 11/04/16 11:38 Nitro-Bid 2% Oint TOP Q8 PRN Diastolic blood pressure Rosuvastatin Calcium 20 mg 11/04/16 22:00 11/04/16 21:56 Crestor PO 20 mg HS [facility] Administration Tamsulosin HCl 0.4 mg 11/05/16 10:00 11/05/16 09:36 Flomax PO 0.4 mg DAILY [facility] Administration - Patient Studies Lab Studies: Lab Studies 11/05/16 11/05/16 Range/Units 06:20 06:20 WBC 5.2 (4.8-10.8) K/uL RBC 3.98 L (4.40-5.90) Mil/uL Hgb 11.7 L (12.0-18.0) g/dL Hct 35.1 (35.0-51.0) % MCV 88.3 (80.0-94.0) fL MCH 29.5 (27.0-31.0) pg MCHC 33.4 (33.0-37.0) g/dL RDW 13.8 (11.5-14.5) % Plt Count 120 L D (130-400) K/uL MPV 7.6 (7.2-11.7) fL Neut % (Auto) 69.1 (50.0-75.0) % Lymph % (Auto) 20.0 (20.0-40.0) % [place] % (Auto) 8.9 (0.0-10.0) % Eos % (Auto) 1.5 (0.0-4.0) % Baso % (Auto) 0.5 (0.0-2.0) % Neut # 3.6 (1.8-7.0) K/uL Lymph # 1.0 (1.0-4.3) K/uL [place] # 0.5 (0.0-0.8) K/uL Eos # 0.1 (0.0-0.7) K/uL Baso # 0.0 (0.0-0.2) K/uL Sodium 141 (132-148) mmol/L Potassium 4.4 (3.6-5.2) mmol/L Chloride 105 (98-107) mmol/L Carbon Dioxide 26 (22-30) mmol/L Anion Gap 14 (10-20) BUN 14 (9-20) mg/dL Creatinine 0.8 (0.8-1.5) MG/DL Est GFR ( Amer) > 60 Est GFR (Non-Af Amer) > 60 Random Glucose 85 (75-110) mg/dL Calcium 8.4 L (8.6-10.4) mg/dl Phosphorus 3.1 (2.5-4.5) mg/dL Magnesium 2.0 (1.6-2.3) mg/dL Total Bilirubin 0.6 (0.2-1.3) mg/dL AST 14 L D (17-59) U/L ALT 11 L D (21-72) U/L Alkaline Phosphatase 59 (38-126) U/L Total Protein 7.0 (6.3-8.3) g/dL Albumin 3.1 L D (3.5-5.0) g/dL Globulin 3.9 (2.2-3.9) gm/dL Albumin/Globulin Ratio 0.8 L (1.0-2.1) Laboratory Results - last 24 hr 11/05/16 11/05/16 06:20 06:20 WBC 5.2 RBC 3.98 L Hgb 11.7 L Hct 35.1 MCV 88.3 MCH 29.5 MCHC 33.4 RDW 13.8 Plt Count 120 L D MPV 7.6 Neut % (Auto) 69.1 Lymph % (Auto) 20.0 [place] % (Auto) 8.9 Eos % (Auto) 1.5 Baso % (Auto) 0.5 Neut # 3.6 Lymph # 1.0 [place] # 0.5 Eos # 0.1 Baso # 0.0 Sodium 141 Potassium 4.4 Chloride 105 Carbon Dioxide 26 Anion Gap 14 BUN 14 Creatinine 0.8 Est GFR ( Amer) > 60 Est GFR (Non-Af Amer) > 60 Random Glucose 85 Calcium 8.4 L Phosphorus 3.1 Magnesium 2.0 Total Bilirubin 0.6 AST 14 L D ALT 11 L D Alkaline Phosphatase 59 Total Protein 7.0 Albumin 3.1 L D Globulin 3.9 Albumin/Globulin Ratio 0.8 L Review of Systems - Review of Systems All systems: reviewed and no additional remarkable complaints except (where noted in HPI) Critical Care Progress Note - Nutrition Nutrition: Nutrition Category Date Time Status Heart Healthy Diet [DIET] Diets 11/05/16 Dinner Active Liquid Diet [DIET] Diets 11/04/16 Dinner Active Assessment/Plan - Assessment and Plan (Free Text) Assessment: 61 yo M s/p right endarterectomy POD#1 Plan: Neuro: AAOx3 Cont to monitor Cardiovascular: Hemodynamically stable Cont home meds with parameters Pulmonary: Saturating well No resp distress Gastrointestinal: Liquid diet for now Advance as tolerated per surgery Hematology: Monitor for bleeding Hgb stable Follow repeat H/H Endocrine: No acute issues Renal: No acute issues Follow labs D/C IVF Infectious Disease: Afebrile No leukocytosis Getting jacinta-operative abx Monitor GI Prophylaxis: Pepcid DVT Prophylaxis: Not indicated at this time Dispo - To be transferred to med/surg today <Dashawn Flores - Last Filed: 11/05/16 14:29> CCU Objective - Vital Signs / Intake & Output Vital Signs (Last 4 hours): Vital Signs Temp Pulse Resp BP Pulse Ox 11/05/16 12:00 98.2 F 80 18 95 11/05/16 11:30 71 24 97 11/05/16 11:00 72 19 96 11/05/16 10:52 82 17 112/68 97 11/05/16 10:30 74 26 H 122/65 Intake and Output (Last 8hrs): Intake & Output 11/04/16 11/05/16 11/05/16 22:59 06:59 14:59 Intake Total 1240 1270 820 Output Total 400 1000 600 Balance 840 270 220 Weight 164 lb 9.6 oz Intake: Intake, IV Amount 900 800 500 Left Forearm 900 800 400 Left Hand 100 Oral 340 470 320 Output: Urine 400 1000 600 Urine, Voided 400 1000 600 Other: # Voids Urine, Voided 1 # Bowel Movements 0 0 0 - Medications Active Medications: Active Medications Generic Name Dose Route Start Last Admin Trade Name Freq PRN Reason Stop Dose Admin Acetaminophen 650 mg 11/03/16 23:33 Tylenol 325mg Tab PO Q6 PRN Fever >100.4 F Aspirin 81 mg 11/05/16 10:00 11/05/16 09:36 Ecotrin PO 81 mg DAILY [facility] Administration Clopidogrel Bisulfate 75 mg 11/05/16 10:00 11/05/16 09:36 Plavix PO 75 mg DAILY [facility] Administration Famotidine 20 mg 11/04/16 18:00 11/05/16 09:36 Pepcid PO 20 mg BID [facility] Administration Hydromorphone HCl 0.5 mg 11/04/16 12:10 Dilaudid IVP Q5M PRN Pain, moderate (4-7) Metoprolol Succinate 25 mg 11/05/16 10:00 11/05/16 09:36 Toprol Xl PO 25 mg DAILY [facility] Administration Morphine Sulfate 2 mg 11/04/16 11:35 Morphine IVP Q4 PRN Pain, moderate (4-7) Morphine Sulfate 4 mg 11/04/16 11:35 Morphine IVP Q4H PRN Pain, severe (8-10) Nitroglycerin 1 ea 11/04/16 11:38 Nitro-Bid 2% Oint TOP Q8 PRN Diastolic blood pressure Rosuvastatin Calcium 20 mg 11/04/16 22:00 11/04/16 21:56 Crestor PO 20 mg HS [facility] Administration Tamsulosin HCl 0.4 mg 11/05/16 10:00 11/05/16 09:36 Flomax PO 0.4 mg DAILY [facility] Administration - Patient Studies Lab Studies: Lab Studies 11/05/16 11/05/16 Range/Units 06:20 06:20 WBC 5.2 (4.8-10.8) K/uL RBC 3.98 L (4.40-5.90) Mil/uL Hgb 11.7 L (12.0-18.0) g/dL Hct 35.1 (35.0-51.0) % MCV 88.3 (80.0-94.0) fL MCH 29.5 (27.0-31.0) pg MCHC 33.4 (33.0-37.0) g/dL RDW 13.8 (11.5-14.5) % Plt Count 120 L D (130-400) K/uL MPV 7.6 (7.2-11.7) fL Neut % (Auto) 69.1 (50.0-75.0) % Lymph % (Auto) 20.0 (20.0-40.0) % [place] % (Auto) 8.9 (0.0-10.0) % Eos % (Auto) 1.5 (0.0-4.0) % Baso % (Auto) 0.5 (0.0-2.0) % Neut # 3.6 (1.8-7.0) K/uL Lymph # 1.0 (1.0-4.3) K/uL [place] # 0.5 (0.0-0.8) K/uL Eos # 0.1 (0.0-0.7) K/uL Baso # 0.0 (0.0-0.2) K/uL Sodium 141 (132-148) mmol/L Potassium 4.4 (3.6-5.2) mmol/L Chloride 105 (98-107) mmol/L Carbon Dioxide 26 (22-30) mmol/L Anion Gap 14 (10-20) BUN 14 (9-20) mg/dL Creatinine 0.8 (0.8-1.5) MG/DL Est GFR ( Amer) > 60 Est GFR (Non-Af Amer) > 60 Random Glucose 85 (75-110) mg/dL Calcium 8.4 L (8.6-10.4) mg/dl Phosphorus 3.1 (2.5-4.5) mg/dL Magnesium 2.0 (1.6-2.3) mg/dL Total Bilirubin 0.6 (0.2-1.3) mg/dL AST 14 L D (17-59) U/L ALT 11 L D (21-72) U/L Alkaline Phosphatase 59 (38-126) U/L Total Protein 7.0 (6.3-8.3) g/dL Albumin 3.1 L D (3.5-5.0) g/dL Globulin 3.9 (2.2-3.9) gm/dL Albumin/Globulin Ratio 0.8 L (1.0-2.1) Laboratory Results - last 24 hr 11/05/16 11/05/16 06:20 06:20 WBC 5.2 RBC 3.98 L Hgb 11.7 L Hct 35.1 MCV 88.3 MCH 29.5 MCHC 33.4 RDW 13.8 Plt Count 120 L D MPV 7.6 Neut % (Auto) 69.1 Lymph % (Auto) 20.0 [place] % (Auto) 8.9 Eos % (Auto) 1.5 Baso % (Auto) 0.5 Neut # 3.6 Lymph # 1.0 [place] # 0.5 Eos # 0.1 Baso # 0.0 Sodium 141 Potassium 4.4 Chloride 105 Carbon Dioxide 26 Anion Gap 14 BUN 14 Creatinine 0.8 Est GFR ( Amer) > 60 Est GFR (Non-Af Amer) > 60 Random Glucose 85 Calcium 8.4 L Phosphorus 3.1 Magnesium 2.0 Total Bilirubin 0.6 AST 14 L D ALT 11 L D Alkaline Phosphatase 59 Total Protein 7.0 Albumin 3.1 L D Globulin 3.9 Albumin/Globulin Ratio 0.8 L Critical Care Progress Note - Nutrition Nutrition: Nutrition Category Date Time Status Heart Healthy Diet [DIET] Diets 11/05/16 Dinner Active Liquid Diet [DIET] Diets 11/04/16 Dinner Active Attending/Attestation - Attestation I have personally seen and examined this patient.: Yes I have fully participated in the care of the patient.: Yes I have reviewed all pertinent clinical information: Yes Notes (Text): 11/05/16 14:29 I have seen and examined the patient. Medical records, lab studies, and imaging were reviewed by me and a management plan was formulated on multidisciplinary rounds with resident Dr. Cruz. I agree with their above documented assessment and plan. Patient clinically stable for downgrade to the floors. Critical Care Time 25 minutes. Multi-disciplinary rounds were performed with house staff, nursing, speech therapy, respiratory therapy, pharmacy and nutrition with integrated input from the primary team/attending and other consulting services. The documented time is cumulative and includes review of patient data/exams/labs/chart review and examination of the patient on rounds and throughout the day; time is exclusive of any procedures or teaching time.
[2016-11-05 14:54] VITALS: RESP 20
[2016-11-05] MEDS ORDERED: Morphine 4 MG/ML VIAL IVP PRN (17:00)
[2016-11-06 04:56] VITALS: O2SAT 95
--- NOTE | 2016-11-06 08:14 | CP.PCM.PN ---
Subjective - Date & Time of Evaluation Date of Evaluation: 11/06/16 Time of Evaluation: 08:12 - Subjective Subjective: Surgery: Dr. Washington Pt seen and examined. Resting comfortably in bed. Pain controlled. Has R side facial droop and tongue deivates to the R, this is baseline from old CVA Objective - Vital Signs/Intake and Output Vital Signs (last 24 hours): Temp Pulse Resp BP Pulse Ox 98.4 F 74 20 114/70 95 11/06/16 04:00 11/06/16 04:00 11/06/16 04:00 11/06/16 04:00 11/06/16 04:00 Intake and Output: 11/06/16 11/06/16 06:59 18:59 Intake Total 600 Output Total 700 Balance -100 - Medications Medications: Current Medications Acetaminophen (Tylenol 325mg Tab) 650 mg PO Q6 PRN PRN Reason: Fever >100.4 F Aspirin (Ecotrin) 81 mg PO DAILY [facility] Last Admin: 11/05/16 09:36 Dose: 81 mg Clopidogrel Bisulfate (Plavix) 75 mg PO DAILY [facility] Last Admin: 11/05/16 09:36 Dose: 75 mg Famotidine (Pepcid) 20 mg PO BID [facility] Last Admin: 11/05/16 18:51 Dose: 20 mg Hydromorphone HCl (Dilaudid) 0.5 mg IVP Q5M PRN PRN Reason: Pain, moderate (4-7) Metoprolol Succinate (Toprol Xl) 25 mg PO DAILY [facility] Last Admin: 11/05/16 09:36 Dose: 25 mg Morphine Sulfate (Morphine) 2 mg IVP Q4 PRN PRN Reason: Pain, moderate (4-7) Morphine Sulfate (Morphine) 4 mg IVP Q4H PRN PRN Reason: Pain, severe (8-10) Nitroglycerin (Nitro-Bid 2% Oint) 1 ea TOP Q8 PRN PRN Reason: Diastolic blood pressure Rosuvastatin Calcium (Crestor) 20 mg PO HS [facility] Last Admin: 11/05/16 22:16 Dose: 20 mg Tamsulosin HCl (Flomax) 0.4 mg PO DAILY [facility] Last Admin: 11/05/16 09:36 Dose: 0.4 mg - Labs Labs: 11/05/16 06:20 11/05/16 06:20 PT 14.3 SECONDS (9.7-12.2) H 11/03/16 21:09 INR 1.3 11/03/16 21:09 APTT 31 SECONDS (21-34) 11/03/16 21:09 - Constitutional Appears: Non-toxic, No Acute Distress - Head Exam Head Exam: ATRAUMATIC, NORMOCEPHALIC - Eye Exam Eye Exam: EOMI - ENT Exam ENT Exam: Mucous Membranes Moist - Neck Exam Additional comments: R neck, dressing in place, C/D/I - Respiratory Exam Respiratory Exam: NORMAL BREATHING PATTERN. absent: Accessory Muscle Use, Respiratory Distress - GI/Abdominal Exam GI & Abdominal Exam: Soft. absent: Tenderness - Extremities Exam Extremities Exam: absent: Calf Tenderness, Pedal Edema - Neurological Exam Neurological Exam: Alert, Awake, Oriented x3 Assessment and Plan - Assessment and Plan (Free Text) Assessment: 61M w. R carotid stenosis, s/p R CEA, POD#2 -pt doing well, clear for D/C from surgical standpoint -continue ASA and plavix at home -call Dr. Washington's office to schedule f/u appointment in 1-2 weeks -d/w attending Charanjit PGY2
[2016-11-06 08:19] VITALS: BP 126/79; PULSE 83; TEMP 97.7
[2016-11-06] MEDS: Metoprolol Succinate 25 mg XL Tab PO SCH (10:59)
--- NOTE | 2016-11-06 14:27 | CP.PCM.HP ---
History of Present Illness - History of Present Illness History of Present Illness: Chief complaint: Dizziness History present illness: 61-year-old male with history of CVA with right-sided weakness, mild hypertension, hypercholesteremia came to the office recently on August 26, 2016, at that time patient was complaining of some dizziness, and episodes of spinning sensation of the room. Patient did not have any headache at the time. No chest pain, nausea, vomiting at the time. Immediately I advised the patient to have a further workup for dizziness. Given the high risk of carotid problems. I advised the patient to have a sonogram of the carotids. He underwent a sonogram of the carotid after that, which showed significant carotid stenosis, bilateral, I suggested the patient to have further evaluation and immediate intervention. Patient was seen by vascular surgery, and suggested to have intervention surgically. Meanwhile patient was continues to have symptoms of dizziness, advised the patient to go to see the clinic administrator, who recommended go to the hospital immediately. Even though he did not have a chest pain. Patient is at high risk for CAD, suggested to have further evaluation and management for heart disease. patient recently had left-sided carotid endarterectomy. Past medical history: CVA, hypertension, hypercholesteremia. Allergies: No known drug allergy Personal history: Patient is a smoker, currently he quit smoking for a few days. Nonalcoholic. Patient has a right-sided weakness Review of system: Patient is feeling somewhat dizziness on and off. Episodes of weakness noted. Not in any distress otherwise. Denies any nausea vomiting no leg swelling Vital signs reviewed No neck vein distention noted Chest good air entry bilaterally, no wheezing or rales noted CVS regular heart sound, no murmur noted Abdomen soft, nontender. Extremities no pedal edema [employer] alert awake oriented, but expressive aphasia, right-sided weakness chronic Patient's labs reviewed Recent MRI, CAT scan labs reviewed Assessment and recommendation: 61-year-old male with history of CVA, right-sided weakness, hypertension, hypercholesterolemia recent carotid endarterectomy admitted with acute worsening dizziness. Needed further management and the treatment. Patient also has severe carotid stenosis probably causing the worsening symptoms at this time. We'll get the vascular surgeon evaluation Patient may need a surgical intervention. Continue to monitor neurologically escobar. Will follow the patient. Present on Admission - Present on Admission Any Indicators Present on Admission: No History of DVT/PE: No History of Uncontrolled Diabetes: No Urinary Catheter: No Decubitus Ulcer Present: No Past Patient History - Infectious Disease Hx of Infectious Diseases: None - Past Medical History & Family History Past Medical History?: Yes - Past Social History Smoking Status: Former Smoker - CARDIAC Hx Hypercholesterolemia: Yes - NEUROLOGICAL HX Cerebrovascular Accident: Yes (12 YEARS BACK) - HEENT Hx HEENT Problems: Yes Hx Deafness: Yes (Right Ear limited hearing) - RENAL Hx Chronic Kidney Disease: No - ENDOCRINE/METABOLIC Hx Endocrine Disorders: No - HEMATOLOGICAL/ONCOLOGICAL Hx Blood Disorders: No - INTEGUMENTARY Hx Dermatological Problems: No - MUSCULOSKELETAL/RHEUMATOLOGICAL Hx Falls: No - GASTROINTESTINAL Hx Gastrointestinal Disorders: No HX Swallowing Problems: No - GENITOURINARY/GYNECOLOGICAL Hx Genitourinary Disorders: No - PSYCHIATRIC Hx Substance Use: No - SURGICAL HISTORY Hx Herniorrhaphy: Yes - ANESTHESIA Hx Anesthesia: Yes Hx Anesthesia Reactions: No Meds Allergies/Adverse Reactions: Allergies Allergy/AdvReac Type Severity Reaction Status Date / Time No Known Allergies Allergy Verified 09/17/16 13:52 Results - Vital Signs Recent Vital Signs: Last Vital Signs Temp 97.7 F 11/06/16 08:18 Pulse 83 11/06/16 08:18 Resp 20 11/06/16 08:18 BP 126/79 11/06/16 08:18 Pulse Ox 95 11/06/16 04:00 - Labs Result Diagrams: 11/05/16 06:20 11/05/16 06:20
--- NOTE | 2016-11-06 14:28 | CP.PCM.DIS ---
Provider - Provider Date of Admission: 11/03/16 20:50 Attending physician: Moreno Fung MD Time Spent in preparation of Discharge (in minutes): 45 Hospital Course - Lab Results Lab Results: Most Recent Lab Values WBC 5.2 K/uL (4.8-10.8) 11/05/16 06:20 RBC 3.98 Mil/uL (4.40-5.90) L 11/05/16 06:20 Hgb 11.7 g/dL (12.0-18.0) L 11/05/16 06:20 Hct 35.1 % (35.0-51.0) 11/05/16 06:20 MCV 88.3 fL (80.0-94.0) 11/05/16 06:20 MCH 29.5 pg (27.0-31.0) 11/05/16 06:20 MCHC 33.4 g/dL (33.0-37.0) 11/05/16 06:20 RDW 13.8 % (11.5-14.5) 11/05/16 06:20 Plt Count 120 K/uL (130-400) L D 11/05/16 06:20 MPV 7.6 fL (7.2-11.7) 11/05/16 06:20 Neut % (Auto) 69.1 % (50.0-75.0) 11/05/16 06:20 Lymph % (Auto) 20.0 % (20.0-40.0) 11/05/16 06:20 Ector % (Auto) 8.9 % (0.0-10.0) 11/05/16 06:20 Eos % (Auto) 1.5 % (0.0-4.0) 11/05/16 06:20 Baso % (Auto) 0.5 % (0.0-2.0) 11/05/16 06:20 Neut # 3.6 K/uL (1.8-7.0) 11/05/16 06:20 Lymph # 1.0 K/uL (1.0-4.3) 11/05/16 06:20 Ector # 0.5 K/uL (0.0-0.8) 11/05/16 06:20 Eos # 0.1 K/uL (0.0-0.7) 11/05/16 06:20 Baso # 0.0 K/uL (0.0-0.2) 11/05/16 06:20 PT 14.3 SECONDS (9.7-12.2) H 11/03/16 21:09 INR 1.3 11/03/16 21:09 APTT 31 SECONDS (21-34) 11/03/16 21:09 Sodium 141 mmol/L (132-148) 11/05/16 06:20 Potassium 4.4 mmol/L (3.6-5.2) 11/05/16 06:20 Chloride 105 mmol/L (98-107) 11/05/16 06:20 Carbon Dioxide 26 mmol/L (22-30) 11/05/16 06:20 Anion Gap 14 (10-20) 11/05/16 06:20 BUN 14 mg/dL (9-20) 11/05/16 06:20 Creatinine 0.8 MG/DL (0.8-1.5) 11/05/16 06:20 Est GFR ( Amer) > 60 11/05/16 06:20 Est GFR (Non-Af Amer) > 60 11/05/16 06:20 Random Glucose 85 mg/dL (75-110) 11/05/16 06:20 Calcium 8.4 mg/dl (8.6-10.4) L 11/05/16 06:20 Phosphorus 3.1 mg/dL (2.5-4.5) 11/05/16 06:20 Magnesium 2.0 mg/dL (1.6-2.3) 11/05/16 06:20 Total Bilirubin 0.6 mg/dL (0.2-1.3) 11/05/16 06:20 AST 14 U/L (17-59) L D 11/05/16 06:20 ALT 11 U/L (21-72) L D 11/05/16 06:20 Alkaline Phosphatase 59 U/L (38-126) 11/05/16 06:20 Troponin I < 0.0120 ng/mL (0.00-0.120) 11/03/16 21:09 Total Protein 7.0 g/dL (6.3-8.3) 11/05/16 06:20 Albumin 3.1 g/dL (3.5-5.0) L D 11/05/16 06:20 Globulin 3.9 gm/dL (2.2-3.9) 11/05/16 06:20 Albumin/Globulin Ratio 0.8 (1.0-2.1) L 11/05/16 06:20 - Hospital Course Hospital Course: Chief complaint: Dizziness History present illness: 61-year-old male with history of CVA with right-sided weakness, mild hypertension, hypercholesteremia came to the office recently on August 26, 2016, at that time patient was complaining of some dizziness, and episodes of spinning sensation of the room. Patient did not have any headache at the time. No chest pain, nausea, vomiting at the time. Immediately I advised the patient to have a further workup for dizziness. Given the high risk of carotid problems. I advised the patient to have a sonogram of the carotids. He underwent a sonogram of the carotid after that, which showed significant carotid stenosis, bilateral, I suggested the patient to have further evaluation and immediate intervention. Patient was seen by vascular surgery, and suggested to have intervention surgically. Meanwhile patient was continues to have symptoms of dizziness, advised the patient to go to see the supervisor assembling, who recommended go to the hospital immediately. Even though he did not have a chest pain. Patient is at high risk for CAD, suggested to have further evaluation and management for heart disease. patient recently had left-sided carotid endarterectomy. Past medical history: CVA, hypertension, hypercholesteremia. Allergies: No known drug allergy Personal history: Patient is a smoker, currently he quit smoking for a few days. Nonalcoholic. Patient has a right-sided weakness Review of system: Patient is feeling somewhat dizziness on and off. Episodes of weakness noted. Not in any distress otherwise. Denies any nausea vomiting no leg swelling Vital signs reviewed No neck vein distention noted Chest good air entry bilaterally, no wheezing or rales noted CVS regular heart sound, no murmur noted Abdomen soft, nontender. 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 Needed further management and the treatment. Patient also has severe carotid stenosis probably causing the worsening symptoms at this time. We'll get the vascular surgeon evaluation Patient may need a surgical intervention. Continue to monitor neurologically escobar. Will follow the patient. patient was seen by vascular surgery, patient underwent carotid endarterectomy. Patient did very well. Clinically stable. patient will continue current medication. Follow-up as an outpatient Discharge home today Discharge Exam - Head Exam Head Exam: ATRAUMATIC, NORMOCEPHALIC Discharge Plan - Follow Up Plan Condition: GOOD Disposition: HOME/ ROUTINE Instructions: Heart Healthy Diet (DC), Carotid Endarterectomy (DC), Dizziness ( GEN), Stroke (DC) Additional Instructions: Follow up with Dr Fung in the office. Referrals: Prashant Kebede MD [Staff Provider] - Quentin Aguilera Jr., MD [Staff Provider] - Moreno Fung MD [Staff Provider] -
--- NOTE | 2016-11-06 14:28 | CP.PCM.PN ---
Subjective - Date & Time of Evaluation Date of Evaluation: 11/05/16 Time of Evaluation: 14:27 - Subjective Subjective: patient is clinical stable, no chest pain minimal dizziness impro. Eating okay. Weakness right side Objective - Vital Signs/Intake and Output Vital Signs (last 24 hours): Temp Pulse Resp BP Pulse Ox 97.7 F 83 20 126/79 95 11/06/16 08:18 11/06/16 08:18 11/06/16 08:18 11/06/16 08:18 11/06/16 04:00 Intake and Output: 11/06/16 11/06/16 06:59 18:59 Intake Total 600 Output Total 700 Balance -100 - Medications Medications: Current Medications Acetaminophen (Tylenol 325mg Tab) 650 mg PO Q6 PRN PRN Reason: Fever >100.4 F Aspirin (Ecotrin) 81 mg PO DAILY [facility] Last Admin: 11/06/16 10:59 Dose: 81 mg Clopidogrel Bisulfate (Plavix) 75 mg PO DAILY [facility] Last Admin: 11/06/16 10:58 Dose: 75 mg Famotidine (Pepcid) 20 mg PO BID [facility] Last Admin: 11/06/16 10:59 Dose: 20 mg Metoprolol Succinate (Toprol Xl) 25 mg PO DAILY [facility] Last Admin: 11/06/16 10:59 Dose: 25 mg Morphine Sulfate (Morphine) 4 mg IVP Q4H PRN PRN Reason: Pain, severe (8-10) Nitroglycerin (Nitro-Bid 2% Oint) 1 ea TOP Q8 PRN PRN Reason: Diastolic blood pressure Rosuvastatin Calcium (Crestor) 20 mg PO HS [facility] Last Admin: 11/05/16 22:16 Dose: 20 mg Tamsulosin HCl (Flomax) 0.4 mg PO DAILY [facility] Last Admin: 11/06/16 10:59 Dose: 0.4 mg - Labs Labs: 11/05/16 06:20 11/05/16 06:20 PT 14.3 SECONDS (9.7-12.2) H 11/03/16 21:09 INR 1.3 11/03/16 21:09 APTT 31 SECONDS (21-34) 11/03/16 21:09 Vital signs reviewed No neck vein distention noted Chest good air entry bilaterally, no wheezing or rales noted CVS regular heart sound, no murmur noted Abdomen soft, nontender. Extremities no pedal edema right-sided weakness Assessment and Plan (1) CAD (coronary artery disease) Status: Acute (2) CVA (cerebral vascular accident) Status: Acute (3) Dizziness Status: Acute
--- NOTE | 2016-11-08 21:19 | CARD ---
APPROVED REPORT EKG Measurement Heart [id number] <Conclusion> Normal sinus rhythm Left axis deviation Inferior-posterior infarct, age undetermined Abnormal ECG
== END 2016-11-06 16:00 | disposition home or self-care (01) | DRG 38 ==
LOC: C.ER 20:15 → C.6T 20:50 → C.9I 11-04 09:32 → C.6T 11-05 12:57
PROVIDERS: ADMIT Internal Medicine; ATTEND Internal Medicine
PROC: 03UH0JZ Supplement Right Common Carotid Artery with Synthetic Substitute, Open Approach (ICD-10-PCS; 2016-11-04)
PROC: 03CH0ZZ Extirpation of Matter from Right Common Carotid Artery, Open Approach (ICD-10-PCS; principal; 2016-11-04 07:45)
DX: I65.21 Occlusion and stenosis of right carotid artery (principal); I10 Essential (primary) hypertension; E78.00 Pure hypercholesterolemia, unspecified; E78.5 Hyperlipidemia, unspecified; I25.10 Atherosclerotic heart disease of native coronary artery without angina pectoris; R47.01 Aphasia; I69.351 Hemiplegia and hemiparesis following cerebral infarction affecting right dominant side; I69.392 Facial weakness following cerebral infarction; Z79.02 Long term (current) use of antithrombotics/antiplatelets; Z87.891 Personal history of nicotine dependence; Z79.82 Long term (current) use of aspirin

== ENCOUNTER 2017-05-03 05:54 | Day surgery (SDC) | payer OTHER, MEDICARE ==
[2017-05-03] MEDS ORDERED: Lactated Ringer's 1,000 ML IV ONE (07:45)
[2017-05-03] MEDS ORDERED: Propofol 10 mg/ml Inj (20 ML) ONE (07:54)
[2017-05-03] MEDS ORDERED: ceFAZolin IV 1 gm in Dextrose 1 GM/50 ML BAG IVPB ONE (08:11)
[2017-05-03] MEDS ORDERED: Bupivacaine 0.5%/Epi 1:200,000 (10 ML SOL) ONE (08:21)
[2017-05-03] MEDS ORDERED: ePHEDrine 50 mg/ml Inj ONE (08:32)
[2017-05-03] MEDS ORDERED: HYDROmorphone 0.5 mg/0.5 ml ISec IVP PRN (08:47)
[2017-05-03] MEDS ORDERED: Oxycodone/Acetaminophen 5/325 mg Tab PO PRN (08:58)
[2017-05-03] MEDS ORDERED: Sodium Chloride 0.45% 1,000 ML IV SCH (09:00)
--- NOTE | 2017-05-03 09:08 | PCM.SURG1 ---
Surgeon's Initial Post Op Note - Surgeon's Notes Surgeon: Ale Barrel Polisher: PGY4 Type of Anesthesia: General LMA Pre-Operative Diagnosis: Rectal Abscess/Fistula Operative Findings: Rectal fistula Post-Operative Diagnosis: Rectal fistula Operation Performed: Exam under anesthesia, rectal fistulotomy Specimen/Specimens Removed: N/A Estimated Blood Loss: EBL {In ML}: 5 Blood Products Given: N/A Drains Used: No Drains Post-Op Condition: Good Date of Surgery/Procedure: 05/03/17 Time of Surgery/Procedure: 08:00
[2017-05-03] MEDS ORDERED: Metoprolol Succinate 25 mg XL Tab PO SCH (10:00)
--- NOTE | 2017-05-03 10:42 | CP.PCM.CON ---
Past Patient History - Infectious Disease Hx of Infectious Diseases: None - Past Medical History & Family History Past Medical History?: Yes - Past Social History Smoking Status: Former Smoker - CARDIAC Hx Cardiac Disorders: Yes Hx Circulatory Problems: Yes Hx Hypercholesterolemia: Yes Hx Hypertension: Yes - PULMONARY Hx Respiratory Disorders: No - NEUROLOGICAL Hx Neurological Disorder: Yes HX Cerebrovascular Accident: Yes (12 YEARS BACK) Hx Dizziness: Yes Hx Paralysis: Yes - HEENT Hx HEENT Problems: Yes Hx Deafness: Yes (Right Ear limited hearing) - RENAL Hx Chronic Kidney Disease: No - ENDOCRINE/METABOLIC Hx Endocrine Disorders: No - HEMATOLOGICAL/ONCOLOGICAL Hx Blood Disorders: No - INTEGUMENTARY Hx Dermatological Problems: No - MUSCULOSKELETAL/RHEUMATOLOGICAL Hx Musculoskeletal Disorders: Yes Hx Falls: No Hx Unsteady Gait: Yes - GASTROINTESTINAL Hx Gastrointestinal Disorders: Yes (rectal fistula) HX Swallowing Problems: No - GENITOURINARY/GYNECOLOGICAL Hx Genitourinary Disorders: Yes Hx Prostate Problems: Yes - PSYCHIATRIC Hx Psychophysiologic Disorder: No Hx Substance Use: No - SURGICAL HISTORY Hx Angioplasty: Yes (September 2016) Hx Carotid Endarterectomy: Yes (September bilat) Hx Herniorrhaphy: Yes - ANESTHESIA Hx Anesthesia: Yes Hx Anesthesia Reactions: No Hx Malignant Hyperthermia: No Has any member of the family had a problem w/ anesthesia?: No Meds Allergies/Adverse Reactions: Allergies Allergy/AdvReac Type Severity Reaction Status Date / Time No Known Allergies Allergy Verified 09/17/16 13:52 - Medications Medications: Current Medications Aspirin (Ecotrin) 81 mg PO DAILY [facility] Clopidogrel Bisulfate (Plavix) 75 mg PO DAILY [facility] Docusate Sodium (Colace) 100 mg PO BID [facility] Famotidine (Pepcid) 20 mg PO BID [facility] Hydromorphone HCl (Dilaudid) 0.5 mg IVP Q15M PRN PRN Reason: Pain, severe (8-10) Stop: 05/03/17 10:47 Sodium Chloride (Sodium Chloride 0.45%) 1,000 mls @ 50 mls/hr IV .Q20H [facility] Metoprolol Succinate (Toprol Xl) 25 mg PO DAILY [facility] Ondansetron HCl (Zofran Inj) 4 mg IVP ONCE PRN PRN Reason: Nausea/Vomiting Stop: 05/03/17 10:48 Oxycodone/Acetaminophen (Percocet 5/325 Mg Tab) 1 tab PO Q4H PRN PRN Reason: Pain, moderate (4-7) Stop: 05/06/17 08:59 Rosuvastatin Calcium (Crestor) 20 mg PO HS [facility] Tamsulosin HCl (Flomax) 0.4 mg PO DAILY [facility] Results - Vital Signs Recent Vital Signs: Last Vital Signs Temp 97.9 F 05/03/17 08:44 Pulse 84 05/03/17 08:44 Resp 10 L 05/03/17 08:44 BP 113/63 05/03/17 08:44 Pulse Ox 98 05/03/17 08:44
[2017-05-03] MEDS ORDERED: Sodium Chloride 0.45% 1,000 ML IV ONE (11:00)
--- NOTE | 2017-05-03 15:05 | CP.PCM.CON ---
History of Present Illness - History of Present Illness History of Present Illness: Chief complaint: post op fissurectomy History present illness: 61-year-old male with history of CVA with right-sided weakness, mild hypertension, hypercholesteremia h/o smoking. recently had CAD and stent, holly carotid endortectomy c/o recently abcess perianal bleeing underwent drainge and fissurectomy. surgery prolonged, and deep lesion and needed hospitalization to monitor bleeding. recently had CAD and stent, holly carotid endortectomy Past medical history: CVA, hypertension, hypercholesteremia. Allergies: No known drug allergy Personal history: Patient is a smoker, currently he quit smoking for a few days. Nonalcoholic. Patient has a right-sided weakness Review of system: Patient is feeling somewhat dizziness on and off. Episodes of weakness noted. Not in any distress otherwise. Denies any nausea vomiting no leg swelling Vital signs reviewed No neck vein distention noted Chest good air entry bilaterally, no wheezing or rales noted CVS regular heart sound, no murmur noted Abdomen soft, nontender. 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, but expressive aphasia, right-sided weakness chronic Assessment and recommendation: 61-year-old male with history of CVA, right-sided weakness, hypertension, hypercholesterolemia recent carotid endarterectomy s/o fissurectomy watch for bleeding antiplatlets from am Past Patient History - Infectious Disease Hx of Infectious Diseases: None - Past Medical History & Family History Past Medical History?: Yes - Past Social History Smoking Status: Former Smoker - CARDIAC Hx Cardiac Disorders: Yes Hx Circulatory Problems: Yes Hx Hypercholesterolemia: Yes Hx Hypertension: Yes - PULMONARY Hx Respiratory Disorders: No - NEUROLOGICAL Hx Neurological Disorder: Yes HX Cerebrovascular Accident: Yes (12 YEARS BACK) Hx Dizziness: Yes Hx Paralysis: Yes - HEENT Hx HEENT Problems: Yes Hx Deafness: Yes (Right Ear limited hearing) - RENAL Hx Chronic Kidney Disease: No - ENDOCRINE/METABOLIC Hx Endocrine Disorders: No - HEMATOLOGICAL/ONCOLOGICAL Hx Blood Disorders: No - INTEGUMENTARY Hx Dermatological Problems: No - MUSCULOSKELETAL/RHEUMATOLOGICAL Hx Musculoskeletal Disorders: Yes Hx Falls: No Hx Unsteady Gait: Yes - GASTROINTESTINAL Hx Gastrointestinal Disorders: Yes (rectal fistula) HX Swallowing Problems: No - GENITOURINARY/GYNECOLOGICAL Hx Genitourinary Disorders: Yes Hx Prostate Problems: Yes - PSYCHIATRIC Hx Psychophysiologic Disorder: No Hx Substance Use: No - SURGICAL HISTORY Hx Angioplasty: Yes (September 2016) Hx Carotid Endarterectomy: Yes (September bilat) Hx Herniorrhaphy: Yes - ANESTHESIA Hx Anesthesia: Yes Hx Anesthesia Reactions: No Hx Malignant Hyperthermia: No Has any member of the family had a problem w/ anesthesia?: No Meds Allergies/Adverse Reactions: Allergies Allergy/AdvReac Type Severity Reaction Status Date / Time No Known Allergies Allergy Verified 09/17/16 13:52 - Medications Medications: Current Medications Aspirin (Ecotrin) 81 mg PO DAILY [facility] Last Admin: 05/03/17 13:15 Dose: 81 mg Clopidogrel Bisulfate (Plavix) 75 mg PO DAILY [facility] Docusate Sodium (Colace) 100 mg PO BID [facility] Last Admin: 05/03/17 13:00 Dose: 100 mg Famotidine (Pepcid) 20 mg PO BID [facility] Last Admin: 05/03/17 13:00 Dose: 20 mg Sodium Chloride (Sodium Chloride 0.45%) 1,000 mls @ 50 mls/hr IV .Q20H [facility] Metoprolol Succinate (Toprol Xl) 25 mg PO DAILY [facility] Last Admin: 05/03/17 13:00 Dose: 25 mg Oxycodone/Acetaminophen (Percocet 5/325 Mg Tab) 1 tab PO Q4H PRN PRN Reason: Pain, moderate (4-7) Stop: 05/06/17 08:59 Last Admin: 05/03/17 13:46 Dose: 1 tab Rosuvastatin Calcium (Crestor) 20 mg PO HS [facility] Tamsulosin HCl (Flomax) 0.4 mg PO DAILY [facility] Last Admin: 05/03/17 13:00 Dose: 0.4 mg Results - Vital Signs Recent Vital Signs: Last Vital Signs Temp 97.9 F 05/03/17 08:44 Pulse 75 05/03/17 13:46 Resp 14 05/03/17 13:46 BP 107/55 L 05/03/17 13:46 Pulse Ox 97 05/03/17 13:46
--- NOTE | 2017-05-03 18:16 | OP ---
PROCEDURE DATE: 05/03/2017 PREOPERATIVE DIAGNOSIS: Rectal fistula. POSTOPERATIVE DIAGNOSIS: Complex rectal fistula. SURGEON: Quentin Aguilera Jr., MD LIQUID SUGAR MELTER: Dr. Burnette. ANESTHESIOLOGIST: . HISTORY: The patient is a man with a history of coronary artery disease and carotid disease, who presents with chronic infection and intermittent infection involving the patient's right buttock. OPERATIVE FINDINGS: There were 2 openings. There was a mid opening approximately an inch and a half from the rectum and then this tracted into a larger opening which was about 5 cm away. The entire tract was opened up with 2 external openings. DESCRIPTION OF PROCEDURE: The patient was given general anesthesia, intravenous antibiotics, and Venodyne boots were applied. The patient was put in lithotomy position. The rectal tract was identified with a draining sinus, and this was communicated to the midline. In addition, it communicated in the other direction after the skin. Both of these tracts were followed. Marcaine with epinephrine was injected and these tracts were opened. Blood loss during this procedure was approximately 5 mL. The area was completely cauterized and packed open. There were no operative complications or problems. Operation carried out, fistulotomy of complex anal fistula which was a posterior midline fistula going to the patient's right side. Quentin Aguilera Jr., MD
[2017-05-03 19:33] VITALS: TEMP 97.9
[2017-05-03 19:35] VITALS: BP 105/70; PULSE 81; RESP 12; O2SAT 99
== END 2017-05-03 17:00 | disposition home or self-care (01) ==
LOC: C.SDS 05:54 → C.9S 08:55 → UNDOADMOB 08:55 → C.SDS 17:00
PROVIDERS: ATTEND Surgery Vascular Surgery
DX: K60.4 Rectal fistula (principal); I25.10 Atherosclerotic heart disease of native coronary artery without angina pectoris; I10 Essential (primary) hypertension; I69.351 Hemiplegia and hemiparesis following cerebral infarction affecting right dominant side; Z87.891 Personal history of nicotine dependence; E78.00 Pure hypercholesterolemia, unspecified
CPT/HCPCS: 46270; J0690; J2704; J3010; J7030; J7120

== ENCOUNTER 2018-02-28 07:45 | Inpatient (IN) | payer OTHER, MEDICARE ==
[2018-02-28 07:45] VITALS: BMI 25.8
--- NOTE | 2018-02-28 08:37 | C.PDOC ---
History Of Present Illness 62 y/o male with history of rectal fistula abscess sent to ED by Dr. Washington for further evaluation of abscess and possible admission to OR. Patient has tried antibiotics with no improvement and denies fever, chills or any other com plaints at this time. Time Seen by Provider: 02/28/18 07:58 Chief Complaint (Nursing): Medical Clearance History Per: Patient History/Exam Limitations: no limitations Onset/Duration Of Symptoms: Days Current Symptoms Are (Timing): Still Present Past Medical History Reviewed: Historical Data, Nursing Documentation, Vital Signs Vital Signs: Last Vital Signs Temp 98.1 F 02/28/18 23:25 Pulse 96 H 02/28/18 23:25 Resp 20 02/28/18 23:25 BP 118/69 02/28/18 23:25 Pulse Ox 95 02/28/18 23:25 - Medical History PMH: HTN, Hypercholesterolemia Surgical History: Carotid Endarterectomy (September bilat) - [facility] Procedures DILATION OF 2 COR ART WITH 2 DRUG-ELUT, PERC APPROACH (09/18/16) EXTIRPATION OF MATTER FROM L INT CAROTID, PERC APPROACH (09/18/16) EXTIRPATION OF MATTER FROM R COM CAROTID, OPEN APPROACH (11/03/16) FLUOROSCOPY OF LEFT HEART USING LOW OSMOLAR CONTRAST (09/18/16) FLUOROSCOPY OF MULT COR ART USING L OSM CONTRAST (09/18/16) MEASURE OF CARDIAC SAMPL & PRESSURE, L HEART, PERC APPROACH (09/18/16) SUPPLEMENT R COM CAROTID WITH SYNTH SUB, OPEN APPROACH (11/03/16) Family History: States: No Known Family Hx - Social History Hx Alcohol Use: No (used to ,red wine daily) Hx Substance Use: No - Immunization History Hx Tetanus Toxoid Vaccination: No Hx Influenza Vaccination: No Hx Pneumococcal Vaccination: No Review Of Systems Except As Marked, All Systems Reviewed And Found Negative. Gastrointestinal: Positive for: Rectal Pain Physical Exam - Physical Exam Appears: Non-toxic, No Acute Distress Skin: Warm, Dry, No Rash Head: Atraumatic, Normacephalic Eye(s): bilateral: Normal Inspection Oral Mucosa: Moist Neck: Supple Cardiovascular: Rhythm Regular Respiratory: Normal Breath Sounds, No Rales, No Rhonchi, No Wheezing Gastrointestinal/Abdominal: Soft, No Tenderness, No Guarding, No Rebound Rectal: Other (rectal abscess present. ) Neurological/Psych: Oriented x3, Normal Speech, Normal Cognition, Other (right sided weakness consistent with previous CVA) ED Course And Treatment - Laboratory Results Result Diagrams: 03/01/18 00:05 02/28/18 08:34 ECG: Interpreted By Me, Viewed By Me ECG Rhythm: Sinus Rhythm Interpretation Of ECG: Qwave in V3 and AVF, Normal intervals. Normal access Rate From EC (BPM) O2 Sat by Pulse Oximetry: 98 (RA) Pulse Ox Interpretation: Normal Medical Decision Making Medical Decision Making: Assessment: Rectal abscess Disposition - Disposition Disposition Time: 10:31 Condition: FAIR - Clinical Impression Clinical Impression: Rectal abscess - Scribe Statement The provider has reviewed the documentation as recorded by the Scribelaine Stewart All medical record entries made by the Moriahibe were at my direction and pers onally dictated by me. I have reviewed the chart and agree that the record accurately reflects my personal performance of the history, physical exam, medical decision making, and the department course for this patient. I have also personally directed, reviewed, and agree with the discharge instructions and disposition.
[2018-02-28 08:43] LABS: BASO % 0.8 % (0.0-2.0); EOS # 0.1 K/uL (0.0-0.7); EOS % 2.6 % (0.0-4.0); HEMOGLOBIN 15.6 g/dL (12.0-18.0); LYMPH # 1.3 K/uL (1.0-4.3); LYMPH % 22.8 % (20.0-40.0); MEAN CELL VOLUME 87.8 fL (80.0-94.0); MEAN CORPUSCULAR HEMOGLOBIN 30.5 pg (27.0-31.0); MEAN CORPUSCULAR HGB CONC 34.7 g/dL (33.0-37.0); MEAN PLATELET VOLUME 7.8 fL (7.2-11.7); MONO # 0.5 K/uL (0.0-0.8); MONO % 8.3 % (0.0-10.0); NEUT # 3.8 K/uL (1.8-7.0); NEUT % 65.5 % (50.0-75.0); NRBC % 0.1 % (0.0-2.0); RBC 5.1 Mil/uL (4.40-5.90); WHITE BLOOD COUNT 5.8 K/uL (4.8-10.8)
[2018-02-28 08:50] LABS: INR 1.3; PROTHROMBIN TIME 13.9 SECONDS (9.7-12.2)
[2018-02-28 08:55] LABS: ALB/GLOB RATIO 1.5 (1.0-2.1); ALBUMIN 4.6 g/dL (3.5-5.0); ALT/SGPT 28 U/L (21-72); AST/SGOT 21 U/L (17-59); BLOOD UREA NITROGEN 16 mg/dL (9-20); CALCIUM 9.6 mg/dl (8.6-10.4); GFR NON-AFRICAN AMERICAN > 60
[2018-02-28] MEDS ORDERED: Lidocaine/Epinephrine 1% 1:100000 10 ML IJ ONE (09:12)
[2018-02-28] MEDS ORDERED: ceFAZolin IV 1 gm in Dextrose 2 GM/100 ML BAG IVPB ONE (09:12)
[2018-02-28] MEDS ORDERED: Propofol 10 mg/ml Inj (20 ML) ONE (09:26)
[2018-02-28] MEDS ORDERED: Midazolam 2 MG/2 ML VIAL ONE (09:26)
[2018-02-28] MEDS ORDERED: HYDROmorphone 0.5 mg/0.5 ml ISec IVP PRN (10:36)
--- NOTE | 2018-02-28 10:39 | PCM.SURG1 ---
Surgeon's Initial Post Op Note - Surgeon's Notes Surgeon: Dr. Aguielra Computer Technology Trainer: Dr. Shi PGY3 Type of Anesthesia: General Endo Pre-Operative Diagnosis: anofistula Operative Findings: see operative report Post-Operative Diagnosis: same Operation Performed: anofistulectomy Specimen/Specimens Removed: fistula tract. purulent fluid sent for culture Estimated Blood Loss: EBL {In ML}: 5 Blood Products Given: N/A Drains Used: No Drains Post-Op Condition: Good Date of Surgery/Procedure: 02/28/18 Time of Surgery/Procedure: 10:00
[2018-02-28] MEDS ORDERED: Lactated Ringer's 1,000 ML IV SCH (11:15)
[2018-02-28] MEDS: HYDROmorphone 0.5 mg/0.5 ml ISec IVP PRN ×2 (13:09→14:00)
[2018-02-28] MEDS: metroNIDAZOLE IV 500 mg/100 ml 250 MG in Premixed IV 1 EA IVPB SCH (21:04)
--- NOTE | 2018-02-28 21:33 | OP ---
PROCEDURE DATE: 02/28/2018 PREOPERATIVE DIAGNOSIS: Rectal abscess, [id number]. POSTOPERATIVE DIAGNOSIS: Rectal abscess, [id number]. PROCEDURE CARRIED OUT: Drainage of rectal abscess and fistulotomy. SURGEON: Quentin Aguilera Jr., MD TABLE LEVER OPERATOR: Gerard Shi DO ANESTHESIOLOGIST: Mr. Bello. ESTIMATED BLOOD LOSS: Less than 20 mL. INDICATIONS: The patient is an older middle aged man with a history of carotid disease, multiple other problems including previous stroke prior to his interventions, who presents with a rectal abscess on the right buttock. The patient had previously had a fistulotomy done approximately a year ago. Now, has a indurated area above this. OPERATIVE FINDINGS: Fluid was cultured that was taken from this. The fistula tract was opened completely, it did not appear communicating with the rectum, but appear to just connecting an old fistulous tract that had been previously excised under the skin. This was all widely opened and debrided and packed open. Quentin Aguilera Jr., MD cc: Moreno Fung MD
[2018-02-28] MEDS: Ciprofloxacin 400mg/200ml D5W 400 MG/200 ML BAG IVPB SCH (21:45)
[2018-02-28] MEDS ORDERED: Lidocaine 2% w Epi 1:100,000 Inj IJ ONE (22:26)
[2018-02-28 23:04] LABS: URINE BACTERIA FEW (<OCC); URINE BILIRUBIN NEGATIVE (NEGATIVE); URINE BLOOD 2+ (NEGATIVE); URINE CLARITY Hazy (Clear); URINE COLOR Red (YELLOW); URINE GLUCOSE (UA) NORMAL (Normal); URINE LEUKOCYTE ESTERASE TRACE Leu/uL (Negative); URINE PROTEIN 2+ mg/dL (NEGATIVE); URINE UROBILINOGEN NORMAL mg/dL (0.2-1.0); WBC CLUMPS FEW /hpf
[2018-03-01 00:10] LABS: BASO # 0.1 K/uL (0.0-0.2); BASO % 0.9 % (0.0-2.0); EOS # 0.1 K/uL (0.0-0.7); EOS % 1.3 % (0.0-4.0); HEMOGLOBIN 13.7 g/dL (12.0-18.0); LYMPH # 1.3 K/uL (1.0-4.3); LYMPH % 13.6 % (20.0-40.0); MEAN CELL VOLUME 87.8 fL (80.0-94.0); MEAN CORPUSCULAR HEMOGLOBIN 30.2 pg (27.0-31.0); MEAN CORPUSCULAR HGB CONC 34.5 g/dL (33.0-37.0); MEAN PLATELET VOLUME 7.7 fL (7.2-11.7); MONO # 0.7 K/uL (0.0-0.8); MONO % 6.9 % (0.0-10.0); NEUT # 7.7 K/uL (1.8-7.0); NEUT % 77.3 % (50.0-75.0); RBC 4.51 Mil/uL (4.40-5.90); WHITE BLOOD COUNT 9.9 K/uL (4.8-10.8)
[2018-03-01] MEDS: metroNIDAZOLE IV 500 mg/100 ml 250 MG in Premixed IV 1 EA IVPB SCH ×3 (04:45→20:51)
[2018-03-01 08:08] LABS: ALB/GLOB RATIO 1.4 (1.0-2.1); ALBUMIN 3.9 g/dL (3.5-5.0); ALT/SGPT 24 U/L (21-72); AST/SGOT 20 U/L (17-59); BLOOD UREA NITROGEN 13 mg/dL (9-20); CALCIUM 9.1 mg/dl (8.6-10.4); GFR NON-AFRICAN AMERICAN > 60
--- NOTE | 2018-03-01 09:32 | US ---
Renal ultrasound HISTORY: Hematuria. COMPARISON: None available. TECHNIQUE: Real-time sonography was through the kidneys. FINDINGS: Right kidney: 10.2 x 4.8 x 5.7 centimeters. Increased echogenicity of the renal parenchymal cortex suggestive for medical renal disease. No calculi or hydronephrosis. Small amount of perinephric fluid. Visualized aorta is preserved. Urinary bladder appears thick walled. In addition, there is a suggestion of a echogenic mass/lesion at the level of the urinary bladder measuring 2.7 x 2.4 x 2.3 centimeters. This is of uncertain clinical etiology. Correlation with cystoscopy is recommended for further evaluation. Echogenic calculus in the posterior aspect of the urinary bladder measuring 2.0 x 1.0 x 1.7 centimeters. Left Kidney: 12.6 x 5.6 x 5.7 centimeters. Increased echogenicity of the renal parenchymal cortex suggestive for medical renal disease. Parapelvic cyst measuring 2.0 x 1.5 x 1.7 centimeters. Mild fullness of the left renal collecting system. Impression: 1. 2.7 x 2.4 x 2.3 centimeter echogenic lesion at the level of the urinary bladder concerning for a possible lesion within the urinary bladder. Correlation with cystoscopy is recommended for further evaluation. 2. 2 centimeter echogenic shadowing calculus noted within the urinary bladder. Clinical correlation. Again correlation with cystoscopy is recommended for further evaluation. 3. Thick-walled urinary bladder. Clinical correlation. 4. Increased echogenicity of the bilateral renal parenchymal cortices suggestive for medical renal disease. Clinical correlation. 5. 2 centimeter left parapelvic cyst. 6. Mild fullness of the left renal collecting system. 7. Small amount of perinephric fluid around the right kidney.
[2018-03-01] MEDS ORDERED: Metoprolol Succinate 25 mg XL Tab PO SCH ×2 (10:00→10:30)
[2018-03-01] MEDS: Ciprofloxacin 400mg/200ml D5W 400 MG/200 ML BAG IVPB SCH ×2 (16:47→22:00)
--- NOTE | 2018-03-01 18:26 | CARD ---
APPROVED REPORT Date of service: 02/28/2018 EKG Measurement Heart [id number] <Conclusion> Normal sinus rhythm Inferior infarct, age undetermined non speciific st t changes. Abnormal ECG
--- NOTE | 2018-03-01 21:40 | CP.PCM.HP ---
History of Present Illness - History of Present Illness History of Present Illness: Chief complaint: Hematuria History present illness: 62-year-old male with history of CVA with right-sided weakness, mild hypertension, hypercholesteremia carotid stenosis, status post a carotid endarterectomy on the left side. Patient was hospitalized today following the intervention for anal fissure, patient started having severe hematuria. Patient was also complaining of minimal discomfort in urination. The urine was dark, and also tea colored urine noted Patient was having symptoms for at least 3 days, I spoke to the patient's 2 days ago, at the time she was given only supportive treatment, I advised her to go to the emergency room. Following the hospitalization, he underwent surgical intervention for infected anal fistula. Postoperatively patient did well. But continues to have symptoms of hematuria. Patient did not have any symptoms in the past Patient is currently on antiplatelets treatment. patient recently had left-sided carotid endarterectomy. Past medical history: CVA, hypertension, hypercholesteremia,, COPD Allergies: No known drug allergy Personal history: Patient is a smoker, patient still continues to smoke Surgical history: Endarterectomy ros: Patient is feeling somewhat dizziness on and off. Episodes of weakness noted. Not in any distress otherwise. Denies any nausea vomiting no leg swelling Vital signs reviewed No neck vein distention noted Chest good air entry bilaterally, no wheezing or rales noted CVS regular heart sound, no murmur noted Abdomen soft, nontender. Extremities no pedal edema [employer] alert awake oriented, but expressive aphasia, right-sided weakness chronic patient's labs reviewed Nonspecific Urine analysis showing evidence of very high levels of RBCs, in the range of hematuria. Otherwise labs are nonspecific. Assessment/recognition: 62-year-old male with a history of CVA, right-sided weakness, hypertension, hypercholesterolemia, recent carotid endarterectomy admitted with Worsening hematuria. Also status post fissurectomy. Chronic smoker. We'll start the patient on antibiotic. Urology evaluation. Sonogram of the kidneys and bladder. DVT GI prophylaxis Spoke to the family in detail. Will follow the patient. Present on Admission - Present on Admission Any Indicators Present on Admission: No History of DVT/PE: No History of Uncontrolled Diabetes: No Urinary Catheter: No Decubitus Ulcer Present: No Past Patient History - Infectious Disease Hx of Infectious Diseases: None - Past Medical History & Family History Past Medical History?: Yes - Past Social History Smoking Status: Heavy Smoker > 10 Cigarettes Daily - CARDIAC Hx Hypercholesterolemia: Yes Hx Hypertension: Yes - PULMONARY Hx Respiratory Disorders: No - NEUROLOGICAL Hx Neurological Disorder: Yes HX Cerebrovascular Accident: Yes (12 YEARS BACK) Hx Dizziness: Yes Hx Paralysis: Yes - HEENT Hx HEENT Problems: Yes Hx Deafness: Yes (Right Ear limited hearing) - RENAL Hx Chronic Kidney Disease: No - ENDOCRINE/METABOLIC Hx Endocrine Disorders: No - HEMATOLOGICAL/ONCOLOGICAL Hx Blood Disorders: No - INTEGUMENTARY Hx Dermatological Problems: No - MUSCULOSKELETAL/RHEUMATOLOGICAL Hx Musculoskeletal Disorders: Yes Hx Unsteady Gait: Yes - GASTROINTESTINAL Hx Gastrointestinal Disorders: Yes (rectal fistula) - GENITOURINARY/GYNECOLOGICAL Hx Genitourinary Disorders: Yes Hx Prostate Problems: Yes - PSYCHIATRIC Hx Substance Use: No - SURGICAL HISTORY Hx Carotid Endarterectomy: Yes (September bilat) - ANESTHESIA Hx Anesthesia: Yes Hx Anesthesia Reactions: No Hx Malignant Hyperthermia: No Meds Allergies/Adverse Reactions: Allergies Allergy/AdvReac Type Severity Reaction Status Date / Time No Known Allergies Allergy Verified 02/28/18 07:55 Results - Vital Signs Recent Vital Signs: Last Vital Signs Temp 98 F 03/01/18 15:00 Pulse 78 03/01/18 15:00 Resp 20 03/01/18 15:00 BP 161/92 H 03/01/18 15:00 Pulse Ox 96 03/01/18 15:00 - Labs Result Diagrams: 03/01/18 00:05 03/01/18 07:13 Labs: Laboratory Results - last 24 hr 02/28/18 03/01/18 03/01/18 22:52 00:05 07:13 WBC 9.9 D RBC 4.51 Hgb 13.7 Hct 39.6 MCV 87.8 MCH 30.2 MCHC 34.5 RDW 14.0 Plt Count 156 MPV 7.7 Neut % (Auto) 77.3 H Lymph % (Auto) 13.6 L [place] % (Auto) 6.9 Eos % (Auto) 1.3 Baso % (Auto) 0.9 Neut # (Auto) 7.7 H Lymph # (Auto) 1.3 [place] # (Auto) 0.7 Eos # (Auto) 0.1 Baso # (Auto) 0.1 Sodium 139 Potassium 4.3 Chloride 101 Carbon Dioxide 28 Anion Gap 15 BUN 13 Creatinine 0.9 Est GFR ( Amer) > 60 Est GFR (Non-Af Amer) > 60 Random Glucose 119 H Calcium 9.1 Phosphorus 2.8 Magnesium 1.8 Total Bilirubin 1.0 AST 20 ALT 24 Alkaline Phosphatase 101 Total Protein 6.7 Albumin 3.9 Globulin 2.8 Albumin/Globulin Ratio 1.4 Prostate Specific Ag 1.72 Urine Color Red Urine Clarity Hazy Urine pH 6.0 Ur Specific [place] 1.010 Urine Protein 2+ H Urine Glucose (UA) Normal Urine Ketones Negative Urine Blood 2+ H Urine Nitrate Negative Urine Bilirubin Negative Urine Urobilinogen Normal Ur Leukocyte Esterase Trace Urine WBC (Auto) 62 H Urine RBC (Auto) 1454 H Urine WBC Clumps (Auto) Few H Urine Bacteria Few H
--- NOTE | 2018-03-01 21:42 | CP.PCM.PN ---
Subjective - Date & Time of Evaluation Date of Evaluation: 03/01/18 Time of Evaluation: 21:40 - Subjective Subjective: Patient is still having episodes of hematuria Vital signs stable. He has no pain. Urine is still not clear. No chest pain no shortness of breath noted On examination: Vital signs noted Systolic blood pressure is elevated. Chest good air entry. Regular heart sound. No suprapubic pain. No pedal edema Right-sided weakness Sonogram of the abdomen and pelvis reviewed There is a filling defect, echogenic mass bladder noted, likely calculus. There is also soft tissue mass in the bladder noted, possibly underlying bladder tumor cannot be ruled out 62-year-old male with history of hypertension, COPD, carotid endarterectomy, hypercholesterolemia Patient has a recurrent anal fissure, status post surgery. Patient now hospitalized with hematuria, abnormal bladder imaging. Needed possibly cystoscopy I spoke to the urologist. Will get a CAT scan of the abdomen and pelvis with and without IV contrast. Will keep the patient nothing by mouth Possibly cystoscopy tomorrow I spoke to the patient's in detail. Will continue the current treatment and will follow-up the patient Objective - Vital Signs/Intake and Output Vital Signs (last 24 hours): Temp Pulse Resp BP Pulse Ox 98 F 78 20 161/92 H 96 03/01/18 15:00 03/01/18 15:00 03/01/18 15:00 03/01/18 15:00 03/01/18 15:00 - Medications Medications: Current Medications Aspirin (Ecotrin) 81 mg PO DAILY [facility] Last Admin: 03/01/18 16:47 Dose: Not Given Clopidogrel Bisulfate (Plavix) 75 mg PO DAILY [facility] Last Admin: 03/01/18 16:48 Dose: Not Given Docusate Sodium (Colace) 100 mg PO BID [facility] Last Admin: 03/01/18 19:00 Dose: 100 mg Famotidine (Pepcid) 20 mg PO BID [facility] Last Admin: 03/01/18 16:48 Dose: Not Given Lactated Ringer's (Lactated Ringer's) 1,000 mls @ 999 mls/hr IV .Q1H1M [facility] Ciprofloxacin (Cipro 400mg/200ml Dsw) 400 mg in 200 mls @ 133 mls/hr IVPB Q12H [facility]; Protocol Last Admin: 03/01/18 16:47 Dose: Not Given Metronidazole 250 mg/ (Miscellaneous) 50 mls @ 100 mls/hr IVPB Q8H [facility]; Protocol Last Admin: 03/01/18 20:51 Dose: 100 mls/hr Dextrose/Sodium Chloride (Dextrose 5%-0.9% Ns 500 Ml) 500 mls @ 50 mls/hr IV .Q10H ONE Stop: 03/02/18 17:59 Metoprolol Succinate (Toprol Xl) 25 mg PO DAILY [facility] Last Admin: 03/01/18 16:49 Dose: Not Given Rosuvastatin Calcium (Crestor) 20 mg PO [facility] Tamsulosin HCl (Flomax) 0.4 mg PO DAILY [facility] Last Admin: 03/01/18 16:48 Dose: Not Given - Labs Labs: 03/01/18 00:05 03/01/18 07:13 PT 13.9 SECONDS (9.7-12.2) H 02/28/18 08:34 INR 1.3 02/28/18 08:34 APTT 35 SECONDS (21-34) H 02/28/18 08:34
[2018-03-02] MEDS: metroNIDAZOLE IV 500 mg/100 ml 250 MG in Premixed IV 1 EA IVPB SCH ×3 (04:10→21:18)
[2018-03-02] MEDS: Ciprofloxacin 400mg/200ml D5W 400 MG/200 ML BAG IVPB SCH ×2 (08:41→22:18)
[2018-03-02] MEDS ORDERED: Iodixanol 320 mg/ml 150 ml Bottle IV ONE (09:51)
[2018-03-02] MEDS: Metoprolol Succinate 50 mg XL Tab PO SCH (11:07)
[2018-03-02 11:44] LABS: BASO % 0.5 % (0.0-2.0); EOS # 0.1 K/uL (0.0-0.7); EOS % 2.1 % (0.0-4.0); HEMOGLOBIN 12.5 g/dL (12.0-18.0); LYMPH % 16.3 % (20.0-40.0); MEAN CELL VOLUME 87.6 fL (80.0-94.0); MEAN CORPUSCULAR HEMOGLOBIN 30.3 pg (27.0-31.0); MEAN CORPUSCULAR HGB CONC 34.6 g/dL (33.0-37.0); MEAN PLATELET VOLUME 7.6 fL (7.2-11.7); MONO # 0.5 K/uL (0.0-0.8); MONO % 8.5 % (0.0-10.0); NEUT # 4.6 K/uL (1.8-7.0); NEUT % 72.6 % (50.0-75.0); RBC 4.11 Mil/uL (4.40-5.90); RED CELL DISTRIBUTION WIDTH 13.9 % (11.5-14.5); WHITE BLOOD COUNT 6.3 K/uL (4.8-10.8)
[2018-03-02 12:26] LABS: ALB/GLOB RATIO 1.4 (1.0-2.1); ALBUMIN 3.6 g/dL (3.5-5.0); ALT/SGPT 31 U/L (21-72); AST/SGOT 22 U/L (17-59); BLOOD UREA NITROGEN 10 mg/dL (9-20); CALCIUM 8.9 mg/dl (8.6-10.4); GFR NON-AFRICAN AMERICAN > 60
--- NOTE | 2018-03-02 13:38 | CT ---
Date of service: 03/02/2018 PROCEDURE: CT Abdomen and Pelvis with and without intravenous contrast HISTORY: calculus COMPARISON: None. TECHNIQUE: Axial images of the abdomen were obtained in the pre contrast, portal venous and delayed phases of enhancement. Coronal and sagittal reformats were generated. Contrast dose: 150 mL Visipaque 320 Radiation dose: Total exam DLP = 3342.91 mGy-cm. This CT exam was performed using one or more of the following dose reduction techniques: Automated exposure control, adjustment of the mA and/or kV according to patient size, and/or use of iterative reconstruction technique. FINDINGS: LOWER THORAX: Focal emphysematous change right lower lobe. Linear scar/atelectasis right lower lobe. No infiltrate/effusion. LIVER: Unremarkable. No gross lesion or ductal dilatation. GALLBLADDER AND BILE DUCTS: Unremarkable. PANCREAS: Unremarkable. No gross lesion or ductal dilatation. SPLEEN: Mild splenomegaly. The spleen measures approximately 15 cm in greatest dimension. No focal mass. ADRENALS: Right adrenal myelo lipoma, approximately 1.8 cm diameter. This measures -39 Hounsfield units consistent with extensive lipid content. No left adrenal mass. KIDNEYS AND URETERS: No renal mass. Mild left hydronephrosis and hydroureter. No right hydronephrosis or hydroureter. No ureteral calculus. Please note that the excretory phase images show limited opacification of the distal left ureter. The pelvicaliceal system of both kidneys is otherwise unremarkable. No ureteral abnormality appreciated. Punctate nonobstructing mid left renal calculus. No right renal calculus. No ureteral calculus.. VASCULATURE: Unremarkable. No aortic aneurysm. BOWEL: Mild sigmoid diverticulosis without evidence of diverticulitis. No abnormal bowel loops otherwise. APPENDIX: Normal appendix. PERITONEUM: Unremarkable. No free fluid. No free air. LYMPH NODES: Unremarkable. No enlarged lymph nodes. BLADDER: There are 2 dependent rounded calculi within the urinary bladder, 5 mm and 15 mm, respectively. No bladder wall thickening. REPRODUCTIVE: Mild prostate enlargement. BONES: No acute fracture. OTHER FINDINGS: None. IMPRESSION: Two high dependent bladder calculi, 5 mm and 15 mm. Punctate nonobstructing left renal calculus. Mild left hydroureteronephrosis. No obstructing calculus or mass identified. Incidental 1.8 cm right adrenal myelo lipoma. Additional minor findings as above.
[2018-03-02] MEDS ORDERED: Iohexol 240 (50 ml) ONE (14:59)
[2018-03-02] MEDS ORDERED: Propofol 10 mg/ml Inj (20 ML) ONE (15:00)
[2018-03-02] MEDS ORDERED: Phenylephrine 10 mg/ml Inj ONE (15:11)
[2018-03-02] MEDS ORDERED: cefTRIAXone 1 gm 1 GM/100 ML BAG IVPB ONE (15:22)
[2018-03-02] MEDS: HYDROmorphone 0.5 mg/0.5 ml ISec IVP PRN ×2 (16:10→16:25)
--- NOTE | 2018-03-02 16:21 | CP.PCM.CON ---
Past Patient History - Infectious Disease Hx of Infectious Diseases: None - Past Medical History & Family History Past Medical History?: Yes - Past Social History Smoking Status: Heavy Smoker > 10 Cigarettes Daily - CARDIAC Hx Hypercholesterolemia: Yes Hx Hypertension: Yes - PULMONARY Hx Respiratory Disorders: No - NEUROLOGICAL Hx Neurological Disorder: Yes HX Cerebrovascular Accident: Yes (12 YEARS BACK) Hx Dizziness: Yes Hx Paralysis: Yes - HEENT Hx HEENT Problems: Yes Hx Deafness: Yes (Right Ear limited hearing) - RENAL Hx Chronic Kidney Disease: No - ENDOCRINE/METABOLIC Hx Endocrine Disorders: No - HEMATOLOGICAL/ONCOLOGICAL Hx Blood Disorders: No - INTEGUMENTARY Hx Dermatological Problems: No - MUSCULOSKELETAL/RHEUMATOLOGICAL Hx Musculoskeletal Disorders: Yes Hx Unsteady Gait: Yes - GASTROINTESTINAL Hx Gastrointestinal Disorders: Yes (rectal fistula) - GENITOURINARY/GYNECOLOGICAL Hx Genitourinary Disorders: Yes Hx Prostate Problems: Yes - PSYCHIATRIC Hx Substance Use: No - SURGICAL HISTORY Hx Carotid Endarterectomy: Yes (September bilat) - ANESTHESIA Hx Anesthesia: Yes Hx Anesthesia Reactions: No Hx Malignant Hyperthermia: No Meds Allergies/Adverse Reactions: Allergies Allergy/AdvReac Type Severity Reaction Status Date / Time No Known Allergies Allergy Verified 02/28/18 07:55 - Medications Medications: Current Medications Aspirin (Ecotrin) 81 mg PO DAILY [facility] Last Admin: 03/02/18 09:30 Dose: Not Given Clopidogrel Bisulfate (Plavix) 75 mg PO DAILY [facility] Last Admin: 03/02/18 09:30 Dose: Not Given Docusate Sodium (Colace) 100 mg PO BID [facility] Last Admin: 03/02/18 09:27 Dose: Not Given Famotidine (Pepcid) 20 mg PO BID [facility] Last Admin: 03/02/18 09:27 Dose: Not Given Hydromorphone HCl (Dilaudid) 0.5 mg IVP Q10M PRN PRN Reason: Pain, severe (8-10) Stop: 03/02/18 18:00 Ciprofloxacin (Cipro 400mg/200ml Dsw) 400 mg in 200 mls @ 133 mls/hr IVPB Q12H [facility]; Protocol Last Admin: 03/02/18 08:41 Dose: 133 mls/hr Metronidazole 250 mg/ (Miscellaneous) 50 mls @ 100 mls/hr IVPB Q8H [facility]; Protocol Last Admin: 03/02/18 12:19 Dose: 100 mls/hr Dextrose/Sodium Chloride (Dextrose 5%-0.9% Ns 500 Ml) 500 mls @ 50 mls/hr IV .Q10H ONE Stop: 03/02/18 17:59 Last Admin: 03/02/18 08:40 Dose: 50 mls/hr Metoprolol Succinate (Toprol Xl) 50 mg PO DAILY [facility] Last Admin: 03/02/18 11:07 Dose: 50 mg Ondansetron HCl (Zofran Inj) 4 mg IVP ONCE PRN PRN Reason: Nausea/Vomiting Stop: 03/02/18 18:00 Rosuvastatin Calcium (Crestor) 20 mg PO HS [facility] Last Admin: 03/01/18 22:45 Dose: 20 mg Tamsulosin HCl (Flomax) 0.4 mg PO DAILY [facility] Last Admin: 03/02/18 09:30 Dose: Not Given Results - Vital Signs Recent Vital Signs: Last Vital Signs Temp 98.5 F 03/02/18 14:12 Pulse 84 03/02/18 14:12 Resp 20 03/02/18 14:12 BP 113/66 03/02/18 14:12 Pulse Ox 94 L 03/02/18 14:12 - Labs Result Diagrams: 03/02/18 11:40 03/02/18 11:40 Labs: Laboratory Results - last 24 hr 03/02/18 03/02/18 11:40 11:40 WBC 6.3 RBC 4.11 L Hgb 12.5 Hct 36.0 MCV 87.6 MCH 30.3 MCHC 34.6 RDW 13.9 Plt Count 136 MPV 7.6 Neut % (Auto) 72.6 Lymph % (Auto) 16.3 L [place] % (Auto) 8.5 Eos % (Auto) 2.1 Baso % (Auto) 0.5 Neut # (Auto) 4.6 Lymph # (Auto) 1.0 [place] # (Auto) 0.5 Eos # (Auto) 0.1 Baso # (Auto) 0.0 Sodium 138 Potassium 3.8 Chloride 105 Carbon Dioxide 24 Anion Gap 12 BUN 10 Creatinine 0.8 Est GFR ( Amer) > 60 Est GFR (Non-Af Amer) > 60 Random Glucose 111 H Calcium 8.9 Total Bilirubin 1.0 AST 22 ALT 31 Alkaline Phosphatase 82 Total Protein 6.3 Albumin 3.6 Globulin 2.7 Albumin/Globulin Ratio 1.4 Assessment & Plan - Assessment and Plan (Free Text) Assessment: IMP: HEMATURIA HX OF BPH CERBROVASCULAR DISEASE APHASIA, P CVA S/P ANAL-RECTAL SURGERY FULL NOTE TBD YS - Date & Time Date: 03/02/18 Time: 14:40
--- NOTE | 2018-03-02 16:23 | PCM.SURG1 ---
Surgeon's Initial Post Op Note - Surgeon's Notes Surgeon: Adiel ROBINS Tier And Detonator: NONE Type of Anesthesia: General LMA Pre-Operative Diagnosis: HEMATURIA. FREQUENCY Operative Findings: BPH. CYSTITIS. BLADDER CALCULI. L HYDRONEPHROSIS Post-Operative Diagnosis: SAME Operation Performed: CYSTO. L RTG PYELOGRAM. LASER CYTOLITHOTRIPSY AND CYSTOLITHOLAPAXY. EUA Specimen/Specimens Removed: URINE. BLADDER STONES Estimated Blood Loss: EBL {In ML}: 0 Blood Products Given: N/A Date of Surgery/Procedure: 03/02/18 Time of Surgery/Procedure: 16:23
--- NOTE | 2018-03-02 16:32 | CP.PCM.PN ---
Subjective - Date & Time of Evaluation Date of Evaluation: 03/02/18 Time of Evaluation: 16:32 - Subjective Subjective: General surgery progress note for Dr. Ben James, PGY-2 Pt S & E in PACU at 1615 Pt s/p cysto, no current complaints. Dressing saturated with serous strike through. Objective - Vital Signs/Intake and Output Vital Signs (last 24 hours): Temp Pulse Resp BP Pulse Ox 98.5 F 84 20 113/66 94 L 03/02/18 14:12 03/02/18 14:12 03/02/18 14:12 03/02/18 14:12 03/02/18 14:12 Intake and Output: 03/02/18 03/02/18 06:59 18:59 Intake Total 600 Output Total 900 Balance -900 600 - Medications Medications: Current Medications Aspirin (Ecotrin) 81 mg PO DAILY [facility] Last Admin: 03/02/18 09:30 Dose: Not Given Clopidogrel Bisulfate (Plavix) 75 mg PO DAILY [facility] Last Admin: 03/02/18 09:30 Dose: Not Given Docusate Sodium (Colace) 100 mg PO BID [facility] Last Admin: 03/02/18 09:27 Dose: Not Given Famotidine (Pepcid) 20 mg PO BID [facility] Last Admin: 03/02/18 09:27 Dose: Not Given Hydromorphone HCl (Dilaudid) 0.5 mg IVP Q10M PRN PRN Reason: Pain, severe (8-10) Stop: 03/02/18 18:00 Last Admin: 03/02/18 16:25 Dose: 0.5 mg Ciprofloxacin (Cipro 400mg/200ml Dsw) 400 mg in 200 mls @ 133 mls/hr IVPB Q12H [facility]; Protocol Last Admin: 03/02/18 08:41 Dose: 133 mls/hr Metronidazole 250 mg/ (Miscellaneous) 50 mls @ 100 mls/hr IVPB Q8H [facility]; Protocol Last Admin: 03/02/18 12:19 Dose: 100 mls/hr Dextrose/Sodium Chloride (Dextrose 5%-0.9% Ns 500 Ml) 500 mls @ 50 mls/hr IV .Q10H ONE Stop: 03/02/18 17:59 Last Admin: 03/02/18 08:40 Dose: 50 mls/hr Metoprolol Succinate (Toprol Xl) 50 mg PO DAILY [facility] Last Admin: 03/02/18 11:07 Dose: 50 mg Ondansetron HCl (Zofran Inj) 4 mg IVP ONCE PRN PRN Reason: Nausea/Vomiting Stop: 03/02/18 18:00 Rosuvastatin Calcium (Crestor) 20 mg PO [facility] Last Admin: 03/01/18 22:45 Dose: 20 mg Tamsulosin HCl (Flomax) 0.4 mg PO DAILY [facility] Last Admin: 03/02/18 09:30 Dose: Not Given - Labs Labs: 03/02/18 11:40 03/02/18 11:40 PT 13.9 SECONDS (9.7-12.2) H 02/28/18 08:34 INR 1.3 02/28/18 08:34 APTT 35 SECONDS (21-34) H 02/28/18 08:34 - Constitutional Appears: Non-toxic, No Acute Distress - Head Exam Head Exam: ATRAUMATIC, NORMAL INSPECTION, NORMOCEPHALIC - Eye Exam Eye Exam: EOMI, Normal appearance - ENT Exam ENT Exam: Mucous Membranes Moist, Normal Exam - Neck Exam Neck Exam: Full ROM, Normal Inspection - Respiratory Exam Respiratory Exam: NORMAL BREATHING PATTERN - Cardiovascular Exam Cardiovascular Exam: REGULAR RHYTHM, +S1, +S2 - GI/Abdominal Exam GI & Abdominal Exam: Soft. absent: Distended, Firm, Guarding, Tenderness - Extremities Exam Additional comments: Right gluteal with open wound healing via secondary intention, non bloody, granulation tissue at base and edges. Dressing changed. - Neurological Exam Neurological Exam: Alert, Awake Additional comments: aphasic, makes noises - Psychiatric Exam Psychiatric exam: Normal Affect, Normal Mood - Skin Skin Exam: Dry, Normal Color, Warm Assessment and Plan - Assessment and Plan (Free Text) Assessment: 62M POD#2 s/p anofistulectomy Plan: Dressing changed today Continue wound care No further surgical intervention at this time Ok for discharge planning DW Dr. Ale James, PGY-2
--- NOTE | 2018-03-02 16:41 | RAD ---
Date of service: 03/02/2018 HISTORY: HEMATURIA/LEFT HYDRONEPHROSIS COMPARISON: 03/02/2018 CT abdomen and pelvis Summary of findings on the comparison examination: Mild left hydroureteronephrosis. No obstructing calculus or mass identified. FINDINGS: BOWEL: Normal. No obstruction. No free air. BONES: Normal. OTHER FINDINGS: Contrast in distended left collecting system and ureter. Contrast and unremarkable right collecting system and partially visualized right ureter. IMPRESSION: Unremarkable bowel gas pattern. Distended left collecting system and ureter.
--- NOTE | 2018-03-02 16:42 | RAD ---
Date of service: 03/02/2018 PROCEDURE: Intraoperative Fluoroscopy. HISTORY: HEMATURIA/LEFT HYDRONEPHROSIS FINDINGS: Fluoroscopic assistance was provided for cystogram in retrograde study. Please refer to the operative report from Dr. ROBINS, [place]. Total fluoroscopic time (continuous mode) utilized during the procedure 17.0 (seconds). Dose report: DLP 0.193 (mGy/m2):
[2018-03-02 19:55] VITALS: RESP 20
--- NOTE | 2018-03-02 20:12 | CP.PCM.PN ---
<Marvin Otto - Last Filed: 03/02/18 21:13> Subjective - Date & Time of Evaluation Date of Evaluation: 03/02/18 Time of Evaluation: 09:40 - Subjective Subjective: Progress Note for Hospitalist Service (covering for Dr. Fung) Pt seen and examined at bedside this am. Aphasic and R sided weakness at baseline, unable to verbalize or describe complaints but nods with denial when asked about current pain. No acute events reported overnight. S/p anofistulectomy with Dr. Aguilera POD#2. Unable to obtain adequate ROS due to pt 's current mental status. Objective - Vital Signs/Intake and Output Vital Signs (last 24 hours): Temp Pulse Resp BP Pulse Ox 97.6 F 90 20 110/72 95 03/02/18 17:09 03/02/18 17:09 03/02/18 17:09 03/02/18 17:09 03/02/18 17:09 Intake and Output: 03/02/18 03/03/18 18:59 06:59 Intake Total 750 Output Total 100 Balance 650 - Medications Medications: Current Medications Aspirin (Ecotrin) 81 mg PO DAILY [facility] Last Admin: 03/02/18 18:38 Dose: 81 mg Clopidogrel Bisulfate (Plavix) 75 mg PO DAILY [facility] Last Admin: 03/02/18 18:37 Dose: 75 mg Docusate Sodium (Colace) 100 mg PO BID [facility] Last Admin: 03/02/18 18:38 Dose: 100 mg Famotidine (Pepcid) 20 mg PO BID [facility] Last Admin: 03/02/18 18:38 Dose: 20 mg Ciprofloxacin (Cipro 400mg/200ml Dsw) 400 mg in 200 mls @ 133 mls/hr IVPB Q12H [facility]; Protocol Last Admin: 03/02/18 08:41 Dose: 133 mls/hr Metronidazole 250 mg/ (Miscellaneous) 50 mls @ 100 mls/hr IVPB Q8H [facility]; Prot ocol Last Admin: 03/02/18 12:19 Dose: 100 mls/hr Metoprolol Succinate (Toprol Xl) 50 mg PO DAILY [facility] Last Admin: 03/02/18 11:07 Dose: 50 mg Pneumococcal Polyvalent Vaccine (Pneumovax 23 Vaccine) 0.5 ml IM .ONCE ONE Stop: 03/04/18 12:01 Rosuvastatin Calcium (Crestor) 20 mg PO HS [facility] Last Admin: 03/01/18 22:45 Dose: 20 mg Tamsulosin HCl (Flomax) 0.4 mg PO DAILY [facility] Last Admin: 03/02/18 09:30 Dose: Not Given - Labs Labs: 03/02/18 11:40 03/02/18 11:40 PT 13.9 SECONDS (9.7-12.2) H 02/28/18 08:34 INR 1.3 02/28/18 08:34 APTT 35 SECONDS (21-34) H 02/28/18 08:34 - Constitutional Appears: Non-toxic, No Acute Distress, Chronically Ill - Head Exam Head Exam: ATRAUMATIC, NORMOCEPHALIC - Eye Exam Eye Exam: EOMI, Normal appearance, PERRL - ENT Exam ENT Exam: Mucous Membranes Moist - Respiratory Exam Respiratory Exam: Clear to Ausculation Bilateral, NORMAL BREATHING PATTERN. absent: Rales, Rhonchi, Wheezes - Cardiovascular Exam Cardiovascular Exam: REGULAR RHYTHM, +S1, +S2. absent: Gallop, Rubs, Murmur - Extremities Exam Extremities Exam: Normal Capillary Refill, Normal Inspection Additional comments: R sided weakness at baseline, unable to lift up R arm or RLE on own - Neurological Exam Neurological Exam: Alert, Awake - Psychiatric Exam Psychiatric exam: Normal Affect, Normal Mood - Skin Skin Exam: Dry, Intact, Normal Color, Warm Assessment and Plan - Assessment and Plan (Free Text) Assessment: 62 M PMHx HTN, COPD, CVA with R sided weakness, carotid endaterectomy, hypercholesterolemia, rectal fistula abscess s/p anofistulectomy POD#2, admitted for hematuria. Plan: Rectal fistula abscess S/p anofistulectomy w/ Dr. Aguilera POD#2 C/w Cipro 400 mg IVPB q 12 h C/w Flagyl 250 mg IVPB q 8 h Wound cx 02/28 growing Corynebacterium Pt afebrile, vitals stable Surgery consulted (Dr. Aguilera), recs appreciated: c/w wound care, ok w/ d/c planning Hematuria Continue to monitor episodes Urology consulted (Dr. Hernandez), recs appreciated Pt s/p cystoscopy, L RTG pyelogram, laser cystolithotripsy and cystolithoapaxy, EUA POD#0; operative findings BPH, cystitis, bladder calculi, and L hydro nephrosis ASA and Plavix held today as per Dr. Hernandez for procedure CT abd/pelvis 03/02: 2 high dependent bladder calculi, 5 mm and 15 mm, no bladder wall thickening. Punctate non-obstructing L renal calculus. Mild L hydroureteronephrosis. No obstructing calculus or mass identified. Incidental 1.8 cm R adrenal myelolipoma. Mild prostate enlargement. Hx CVA ASA, Plavix held by urology today; consider restarting meds tomorrow if hematuria resolves Hx HTN Toprol XL 25 mg PO daily Hx HLD Crestor 20 mg PO hs BPH Flomax 0.4 mg PO daily GI ppx: Pepcid 20 mg PO bid DVT ppx: SCDs Pt seen, examined with, and plan discussed with Dr. Cornelius, attending. Marvin Otto DO PGY-1, Medical Office Coordinator Pager #[phone] <Claude Cornelius - Last Filed: 03/05/18 14:53> Objective - Vital Signs/Intake and Output Vital Signs (last 24 hours): Temp Pulse Resp BP Pulse Ox 98.2 F 86 20 106/54 L 96 03/04/18 15:45 03/04/18 15:45 03/04/18 15:45 03/04/18 15:45 03/04/18 15:45 - Labs Labs: 03/04/18 07:52 03/04/18 07:52 PT 13.9 SECONDS (9.7-12.2) H 02/28/18 08:34 INR 1.3 02/28/18 08:34 APTT 35 SECONDS (21-34) H 02/28/18 08:34 Attending/Attestation - Attestation I have personally seen and examined this patient.: Yes I have fully participated in the care of the patient.: Yes I have reviewed all pertinent clinical information, including history, physical exam and plan: Yes Notes (Text): Rectal fistula abscess S/p anofistulectomy w/ Dr. Aguilera POD#2 Hematuria Pt s/p cystoscopy, L RTG pyelogram, laser cystolithotripsy and cystolithoapaxy, EUA POD#1; operative findings BPH, cystitis, bladder calculi, and L hydronephrosis Continue to hold ASA and Plavix Hx CVA
[2018-03-03] MEDS: metroNIDAZOLE IV 500 mg/100 ml 250 MG in Premixed IV 1 EA IVPB SCH (03:50)
--- NOTE | 2018-03-03 07:52 | CP.PCM.PN ---
Subjective - Date & Time of Evaluation Date of Evaluation: 03/03/18 Time of Evaluation: 07:50 - Subjective Subjective: General surgery progress note for Dr. Ben James, PGY-2 Pt S & E at bedside 0620 Pt resting comfortably in bed, no current complaints. Objective - Vital Signs/Intake and Output Vital Signs (last 24 hours): Temp Pulse Resp BP Pulse Ox 98.6 F 78 20 111/70 98 03/03/18 04:18 03/03/18 04:18 03/03/18 04:18 03/03/18 04:18 03/03/18 04:18 Intake and Output: 03/03/18 03/03/18 06:59 18:59 Intake Total 1000 Output Total 2000 Balance -1000 - Medications Medications: Current Medications Aspirin (Ecotrin) 81 mg PO DAILY [facility] Last Admin: 03/02/18 18:38 Dose: 81 mg Clopidogrel Bisulfate (Plavix) 75 mg PO DAILY [facility] Last Admin: 03/02/18 18:37 Dose: 75 mg Docusate Sodium (Colace) 100 mg PO BID [facility] Last Admin: 03/02/18 18:38 Dose: 100 mg Famotidine (Pepcid) 20 mg PO BID [facility] Last Admin: 03/02/18 18:38 Dose: 20 mg Ciprofloxacin (Cipro 400mg/200ml Dsw) 400 mg in 200 mls @ 133 mls/hr IVPB Q12H [facility]; Protocol Last Admin: 03/02/18 22:18 Dose: 133 mls/hr Metronidazole 250 mg/ (Miscellaneous) 50 mls @ 100 mls/hr IVPB Q8H [facility]; Protocol Last Admin: 03/03/18 03:50 Dose: 100 mls/hr Metoprolol Succinate (Toprol Xl) 50 mg PO DAILY [facility] Last Admin: 03/02/18 11:07 Dose: 50 mg Pneumococcal Polyvalent Vaccine (Pneumovax 23 Vaccine) 0.5 ml IM .ONCE ONE Stop: 03/04/18 12:01 Rosuvastatin Calcium (Crestor) 20 mg PO [facility] Last Admin: 03/02/18 21:19 Dose: 20 mg Tamsulosin HCl (Flomax) 0.4 mg PO DAILY [facility] Last Admin: 03/02/18 09:30 Dose: Not Given - Labs Labs: 03/02/18 11:40 03/02/18 11:40 PT 13.9 SECONDS (9.7-12.2) H 02/28/18 08:34 INR 1.3 02/28/18 08:34 APTT 35 SECONDS (21-34) H 02/28/18 08:34 - Constitutional Appears: Non-toxic, No Acute Distress - Head Exam Head Exam: ATRAUMATIC, NORMAL INSPECTION, NORMOCEPHALIC - Eye Exam Eye Exam: EOMI, Normal appearance - ENT Exam ENT Exam: Mucous Membranes Moist, Normal Exam - Neck Exam Neck Exam: Full ROM, Normal Inspection - Respiratory Exam Respiratory Exam: NORMAL BREATHING PATTERN - Cardiovascular Exam Cardiovascular Exam: REGULAR RHYTHM, +S1, +S2 - GI/Abdominal Exam GI & Abdominal Exam: Soft. absent: Distended - Extremities Exam Extremities Exam: absent: Normal Inspection (right arm contracted) Additional comments: Right gluteal area with large wound- non bloody, dressing in place with serous strike through - Neurological Exam Neurological Exam: Alert Additional comments: aphasic - Psychiatric Exam Additional comments: Non verbal - Skin Skin Exam: Normal Color, Warm Assessment and Plan - Assessment and Plan (Free Text) Assessment: 62M POD#3 s/p anofistulectomy Plan: Dressing changed this AM Cont local wound care No further surgical intervention at this time Ok for discharge planning FU with Dr. Aguilera in the office next week Will DW Dr. Ale James, PGY-2
[2018-03-03] MEDS: Ciprofloxacin 400mg/200ml D5W 400 MG/200 ML BAG IVPB SCH (09:30)
[2018-03-03] MEDS: Metoprolol Succinate 50 mg XL Tab PO SCH (10:55)
[2018-03-03 11:03] LABS: BASO % 0.5 % (0.0-2.0); EOS # 0.2 K/uL (0.0-0.7); EOS % 2.6 % (0.0-4.0); HEMOGLOBIN 12.7 g/dL (12.0-18.0); LYMPH # 1.2 K/uL (1.0-4.3); LYMPH % 15.4 % (20.0-40.0); MEAN CELL VOLUME 88.1 fL (80.0-94.0); MEAN CORPUSCULAR HEMOGLOBIN 29.6 pg (27.0-31.0); MEAN CORPUSCULAR HGB CONC 33.6 g/dL (33.0-37.0); MEAN PLATELET VOLUME 7.8 fL (7.2-11.7); MONO # 0.7 K/uL (0.0-0.8); MONO % 8.6 % (0.0-10.0); NEUT # 5.5 K/uL (1.8-7.0); NEUT % 72.9 % (50.0-75.0); RBC 4.29 Mil/uL (4.40-5.90); RED CELL DISTRIBUTION WIDTH 14.1 % (11.5-14.5); WHITE BLOOD COUNT 7.6 K/uL (4.8-10.8)
[2018-03-03 11:45] LABS: ALB/GLOB RATIO 1.4 (1.0-2.1); ALBUMIN 3.7 g/dL (3.5-5.0); ALT/SGPT 25 U/L (21-72); AST/SGOT 21 U/L (17-59); BLOOD UREA NITROGEN 11 mg/dL (9-20); GFR NON-AFRICAN AMERICAN > 60
--- NOTE | 2018-03-03 16:58 | CP.PCM.PN ---
<Marvin Otto - Last Filed: 03/03/18 16:55> Subjective - Date & Time of Evaluation Date of Evaluation: 03/03/18 Time of Evaluation: 09:30 - Subjective Subjective: Progress Note for Hospitalist Service (covering for Dr. Fung) Pt seen and examined at bedside this am. Denied any acute complaints, aphasic and R sided weakness at bedside 2/2 prior hx CVA. Observed working with physical therapy at bedside. No acute events reported overnight by staff. 12-point ROS unobtainable due to pt's current mental status. Objective - Vital Signs/Intake and Output Vital Signs (last 24 hours): Temp Pulse Resp BP Pulse Ox 98.4 F 82 20 130/82 97 03/03/18 15:05 03/03/18 15:05 03/03/18 15:05 03/03/18 15:05 03/03/18 15:05 Intake and Output: 03/03/18 03/03/18 06:59 18:59 Intake Total 1000 840 Output Total 2000 1000 Balance -1000 -160 - Medications Medications: Current Medications Aspirin (Ecotrin) 81 mg PO DAILY [facility] Last Admin: 03/03/18 10:55 Dose: 81 mg Ciprofloxacin (Cipro) 500 mg PO Q12H [facility] Clopidogrel Bisulfate (Plavix) 75 mg PO DAILY [facility] Last Admin: 03/03/18 10:54 Dose: 75 mg Docusate Sodium (Colace) 100 mg PO BID [facility] Last Admin: 03/03/18 10:55 Dose: 100 mg Famotidine (Pepcid) 20 mg PO BID [facility] Last Admin: 03/03/18 10:54 Dose: 20 mg Metoprolol Succinate (Toprol Xl) 50 mg PO DAILY [facility] Last Admin: 03/03/18 10:55 Dose: 50 mg Metronidazole (Flagyl) 250 mg PO Q8 [facility] Last Admin: 03/03/18 14:13 Dose: 250 mg Pneumococcal Polyvalent Vaccine (Pneumovax 23 Vaccine) 0.5 ml IM .ONCE ONE Stop: 03/04/18 12:01 Rosuvastatin Calcium (Crestor) 20 mg PO HS [facility] Last Admin: 03/02/18 21:19 Dose: 20 mg Tamsulosin HCl (Flomax) 0.4 mg PO BID [facility] - Labs Labs: 03/03/18 10:52 03/03/18 07:48 PT 13.9 SECONDS (9.7-12.2) H 02/28/18 08:34 INR 1.3 02/28/18 08:34 APTT 35 SECONDS (21-34) H 02/28/18 08:34 - Constitutional Appears: Non-toxic, No Acute Distress, Chronically Ill - Head Exam Head Exam: ATRAUMATIC, NORMOCEPHALIC - Eye Exam Eye Exam: EOMI, Normal appearance, PERRL - ENT Exam ENT Exam: Mucous Membranes Moist - Respiratory Exam Respiratory Exam: Clear to Ausculation Bilateral, NORMAL BREATHING PATTERN. absent: Rales, Rhonchi, Wheezes - Cardiovascular Exam Cardiovascular Exam: REGULAR RHYTHM, +S1, +S2 - GI/Abdominal Exam GI & Abdominal Exam: Soft, Normal Bowel Sounds. absent: Distended, Firm, Guarding, Tenderness, Organomegaly - Extremities Exam Extremities Exam: Normal Capillary Refill, Normal Inspection Additional comments: R sided weakness at baseline - Neurological Exam Neurological Exam: Alert, Awake, Oriented x3 - Psychiatric Exam Psychiatric exam: Normal Affect, Normal Mood - Skin Skin Exam: Dry, Intact, Normal Color, Warm Assessment and Plan - Assessment and Plan (Free Text) Assessment: 62 M PMHx HTN, COPD, CVA with R sided weakness, carotid endaterectomy, hypercholesterolemia, rectal fistula abscess s/p anofistulectomy POD#3, admitted for hematuria. Plan: Rectal fistula abscess S/p anofistulectomy w/ Dr. Aguilera POD#3 C/w Cipro 400 mg IVPB q 12 h C/w Flagyl 250 mg IVPB q 8 h Wound cx 02/28 growing Corynebacterium Pt afebrile, vitals stable Surgery consulted (Dr. Aguilera), recs appreciated: c/w wound care, ok w/ d/c planning Hematuria Continue to monitor episodes; pink-colored urine observed in [place] today Urology consulted (Dr. Hernandez), recs appreciated Per discussion with Dr. Hernandez today, observe pt overnight and Dr. Hernandez to remove [place] catheter at bedside tomorrow Pt s/p cystoscopy, L RTG pyelogram, laser cystolithotripsy and cystolithoapaxy, EUA POD#1; operative findings BPH, cystitis, bladder calculi, and L hydronephrosis Continue to hold ASA and Plavix CT abd/pelvis 03/02: 2 high dependent bladder calculi, 5 mm and 15 mm, no bladder wall thickening. Punctate non-obstructing L renal calculus. Mild L hydroureteronephrosis. No obstructing calculus or mass identified. Incidental 1.8 cm R adrenal myelolipoma. Mild prostate enlargement. Hx CVA ASA, Plavix held 2/2 hematuria, consider restarting tx if resolves Hx HTN Toprol XL 25 mg PO daily Hx HLD Crestor 20 mg PO hs BPH Flomax increased to 0.4 mg PO bid as per Dr. Hernandez GI ppx: Pepcid 20 mg PO bid DVT ppx: SCDs PT dispo recommends ANDREI for d/c planning. F/u OT recs. Pt seen, examined with, and plan discussed with Dr. Cornelius, attending. Marvin Otto DO PGY-1, Health Safety Engineer Pager #[phone] <Claude Cornelius - Last Filed: 03/05/18 14:52> Objective - Vital Signs/Intake and Output Vital Signs (last 24 hours): Temp Pulse Resp BP Pulse Ox 98.2 F 86 20 106/54 L 96 03/04/18 15:45 03/04/18 15:45 03/04/18 15:45 03/04/18 15:45 03/04/18 15:45 - Labs Labs: 03/04/18 07:52 03/04/18 07:52 PT 13.9 SECONDS (9.7-12.2) H 02/28/18 08:34 INR 1.3 02/28/18 08:34 APTT 35 SECONDS (21-34) H 02/28/18 08:34 Attending/Attestation - Attestation I have personally seen and examined this patient.: Yes I have fully participated in the care of the patient.: Yes I have reviewed all pertinent clinical information, including history, physical exam and plan: Yes Notes (Text): Rectal fistula abscess S/p anofistulectomy w/ Dr. Aguilera POD#3 Hematuria Pt s/p cystoscopy, L RTG pyelogram, laser cystolithotripsy and cystolithoapaxy, EUA POD#1; operative findings BPH, cystitis, bladder calculi, and L hydronephrosis Continue to hold ASA and Plavix Hx CVA
[2018-03-04 07:42] VITALS: O2SAT 96
[2018-03-04 08:08] LABS: BASO % 0.5 % (0.0-2.0); EOS # 0.2 K/uL (0.0-0.7); EOS % 2.8 % (0.0-4.0); HEMOGLOBIN 12.4 g/dL (12.0-18.0); LYMPH # 0.9 K/uL (1.0-4.3); LYMPH % 15.9 % (20.0-40.0); MEAN CELL VOLUME 88.2 fL (80.0-94.0); MEAN CORPUSCULAR HEMOGLOBIN 30.5 pg (27.0-31.0); MEAN CORPUSCULAR HGB CONC 34.6 g/dL (33.0-37.0); MEAN PLATELET VOLUME 7.9 fL (7.2-11.7); MONO # 0.5 K/uL (0.0-0.8); MONO % 8.8 % (0.0-10.0); RBC 4.06 Mil/uL (4.40-5.90); RED CELL DISTRIBUTION WIDTH 14.1 % (11.5-14.5); WHITE BLOOD COUNT 5.5 K/uL (4.8-10.8)
[2018-03-04 09:29] LABS: ALB/GLOB RATIO 1.3 (1.0-2.1); ALBUMIN 3.6 g/dL (3.5-5.0); ALT/SGPT 23 U/L (21-72); AST/SGOT 21 U/L (17-59); BLOOD UREA NITROGEN 11 mg/dL (9-20); CALCIUM 8.7 mg/dl (8.6-10.4); GFR NON-AFRICAN AMERICAN > 60
[2018-03-04] MEDS: Metoprolol Succinate 50 mg XL Tab PO SCH (09:53)
[2018-03-04] MEDS ORDERED: Pneumococcal 23-Valent Vaccine IM ONE (12:00)
[2018-03-04 16:20] VITALS: BP 106/54; PULSE 86; TEMP 98.2
--- NOTE | 2018-03-04 19:45 | PCM.URO ---
Urology Progress Note - General General: No Complaints, Tolerating Diet - Subjective Abdominal Pain: No Flank Pain: No Nausea: No Vomiting: No Voiding Well: No Hematuria: No Stone Passed: No Dsypnea: No Chest Pain: No Fever & Chills: No - Objective Lab Results Last 24 Hours: Laboratory Results - last 24 hr 03/04/18 03/04/18 07:52 07:52 WBC 5.5 RBC 4.06 L Hgb 12.4 Hct 35.8 MCV 88.2 MCH 30.5 MCHC 34.6 RDW 14.1 Plt Count 135 MPV 7.9 Neut % (Auto) 72.0 Lymph % (Auto) 15.9 L Rice % (Auto) 8.8 Eos % (Auto) 2.8 Baso % (Auto) 0.5 Neut # (Auto) 4.0 Lymph # (Auto) 0.9 L Rice # (Auto) 0.5 Eos # (Auto) 0.2 Baso # (Auto) 0.0 Sodium 143 Potassium 3.7 Chloride 106 Carbon Dioxide 26 Anion Gap 15 BUN 11 Creatinine 0.9 Est GFR ( Amer) > 60 Est GFR (Non-Af Amer) > 60 Random Glucose 123 H Calcium 8.7 Total Bilirubin 0.8 AST 21 ALT 23 Alkaline Phosphatase 80 Total Protein 6.4 Albumin 3.6 Globulin 2.8 Albumin/Globulin Ratio 1.3 Intake & Output: Intake & Output 03/04/18 03/04/18 03/05/18 06:59 18:59 06:59 Intake Total 240 50 Output Total 1650 450 Balance -1410 -400 Intake: Oral 240 Other 50 Output: Urine 1650 450 Urethral (Vidal) 1650 450 Vital Signs: Vital Signs - 24 hr 03/03/18 03/04/18 03/04/18 23:21 07:41 15:45 Temperature 98.3 F 98.2 F Pulse Rate 75 90 86 Respiratory 20 20 20 Rate Blood Pressure 117/71 100/63 106/54 L O2 Sat by Pulse 94 L 96 96 Oximetry - Physical Exam Abdominal Exam: Soft, Non-Tender, Non-Distended Bowel Sounds: Normal Back: No CVA Tenderness Genitalia: Without Inflammation Urinary Catheter Draining Well: Yes Urine Color: Yellow Extremities: Normal: Bilateral - Male Phallus: Normal - Plan Discontinue Urinary Catheter: Yes Intake & Output: Yes See Orders: Yes Additional Information: IMP: DOING WELL, POST CYSTOLITHOTRIPSY. BPH. CYSTO LITHIASIS. APHASIA. P CVA. REC/P: D/C VIDAL. ANTIBIOTIC RX. FLOMAX - Date & Time of Note Date: 03/04/18 Time: 12:05
--- NOTE | 2018-03-04 22:43 | CP.PCM.DIS ---
Provider - Provider Date of Admission: 03/02/18 16:52 Attending physician: Claude Cornelius MD Primary care physician: Dr. Fung Consults: Surgery - Dr. Aguilera Urology - Dr. Hernandez Time Spent in preparation of Discharge (in minutes): 45 Diagnosis - Discharge Diagnosis (1) Hematuria Status: Acute (2) Rectal abscess Status: Acute Hospital Course - Lab Results Lab Results: Micro Results 03/02/18 16:56 Urine,Catheterized Urine Culture - Final No Growth (<1,000 CFU/ML) 02/28/18 Unknown Anus Gram Stain - Final 02/28/18 Unknown Anus Wound Culture - Final Corynebacterium Species 02/28/18 08:44 Urine Urine Culture - Final No Growth (<1,000 CFU/ML) Most Recent Lab Values WBC 5.5 K/uL (4.8-10.8) 03/04/18 07:52 RBC 4.06 Mil/uL (4.40-5.90) L 03/04/18 07:52 Hgb 12.4 g/dL (12.0-18.0) 03/04/18 07:52 Hct 35.8 % (35.0-51.0) 03/04/18 07:52 MCV 88.2 fL (80.0-94.0) 03/04/18 07:52 MCH 30.5 pg (27.0-31.0) 03/04/18 07:52 MCHC 34.6 g/dL (33.0-37.0) 03/04/18 07:52 RDW 14.1 % (11.5-14.5) 03/04/18 07:52 Plt Count 135 K/uL (130-400) 03/04/18 07:52 MPV 7.9 fL (7.2-11.7) 03/04/18 07:52 Neut % (Auto) 72.0 % (50.0-75.0) 03/04/18 07:52 Lymph % (Auto) 15.9 % (20.0-40.0) L 03/04/18 07:52 [place] % (Auto) 8.8 % (0.0-10.0) 03/04/18 07:52 Eos % (Auto) 2.8 % (0.0-4.0) 03/04/18 07:52 Baso % (Auto) 0.5 % (0.0-2.0) 03/04/18 07:52 Neut # (Auto) 4.0 K/uL (1.8-7.0) 03/04/18 07:52 Lymph # (Auto) 0.9 K/uL (1.0-4.3) L 03/04/18 07:52 Webster # (Auto) 0.5 K/uL (0.0-0.8) 03/04/18 07:52 Eos # (Auto) 0.2 K/uL (0.0-0.7) 03/04/18 07:52 Baso # (Auto) 0.0 K/uL (0.0-0.2) 03/04/18 07:52 PT 13.9 SECONDS (9.7-12.2) H 02/28/18 08:34 INR 1.3 02/28/18 08:34 APTT 35 SECONDS (21-34) H 02/28/18 08:34 Sodium 143 mmol/L (132-148) 03/04/18 07:52 Potassium 3.7 mmol/L (3.6-5.2) 03/04/18 07:52 Chloride 106 mmol/L (98-107) 03/04/18 07:52 Carbon Dioxide 26 mmol/L (22-30) 03/04/18 07:52 Anion Gap 15 (10-20) 03/04/18 07:52 BUN 11 mg/dL (9-20) 03/04/18 07:52 Creatinine 0.9 mg/dL (0.8-1.5) 03/04/18 07:52 Est GFR ( Amer) > 60 03/04/18 07:52 Est GFR (Non-Af Amer) > 60 03/04/18 07:52 Random Glucose 123 mg/dL (75-110) H 03/04/18 07:52 Calcium 8.7 mg/dl (8.6-10.4) 03/04/18 07:52 Phosphorus 2.8 mg/dL (2.5-4.5) 03/01/18 07:13 Magnesium 1.8 mg/dL (1.6-2.3) 03/01/18 07:13 Total Bilirubin 0.8 mg/dL (0.2-1.3) 03/04/18 07:52 AST 21 U/L (17-59) 03/04/18 07:52 ALT 23 U/L (21-72) 03/04/18 07:52 Alkaline Phosphatase 80 U/L (38-126) 03/04/18 07:52 Total Protein 6.4 g/dL (6.3-8.3) 03/04/18 07:52 Albumin 3.6 g/dL (3.5-5.0) 03/04/18 07:52 Globulin 2.8 gm/dL (2.2-3.9) 03/04/18 07:52 Albumin/Globulin Ratio 1.3 (1.0-2.1) 03/04/18 07:52 Prostate Specific Ag 1.72 ng/mL (0.00-4.0) 03/01/18 07:13 Urine Color Red (YELLOW) 02/28/18 22:52 Urine Clarity Hazy (Clear) 02/28/18 22:52 Urine pH 6.0 (5.0-8.0) 02/28/18 22:52 Ur Specific Jackson 1.010 (1.003-1.030) 02/28/18 22:52 Urine Protein 2+ mg/dL (NEGATIVE) H 02/28/18 22:52 Urine Glucose (UA) Normal mg/dL (Normal) 02/28/18 22:52 Urine Ketones Negative mg/dL (NEGATIVE) 02/28/18 22:52 Urine Blood 2+ (NEGATIVE) H 02/28/18 22:52 Urine Nitrate Negative (NEGATIVE) 02/28/18 22:52 Urine Bilirubin Negative (NEGATIVE) 02/28/18 22:52 Urine Urobilinogen Normal mg/dL (0.2-1.0) 02/28/18 22:52 Ur Leukocyte Esterase Trace Kennedy/uL (Negative) 02/28/18 22:52 Urine WBC (Auto) 62 /hpf (0-5) H 02/28/18 22:52 Urine RBC (Auto) 1454 /hpf (0-3) H 02/28/18 22:52 Urine WBC Clumps (Auto) Few /hpf (NONE) H 02/28/18 22:52 Urine Bacteria Few (<OCC) H 02/28/18 22:52 Blood Type O POSITIVE 02/28/18 08:34 Antibody Screen Negative 02/28/18 08:34 - Hospital Course Hospital Course: Medicine Discharge Summary for Hospitalist Service (covering for Dr. Fung) Marvin Otto DO PGY-1, [facility] This is a 62 y o male with PMHx CVA with R-sided weakness, HTN, hypercholesterolemia, carotid stenosis, s/p recent L sided carotid endarterectomy, who was admitted on 02/28/18 for hematuria, after patient had anofistulectomy for worsening rectal abscess performed by Dr. Aguilera. Pt was c/o minimal discomfort in urination, urine was dark/tea-colored, and was having symptoms for at least 3 days. Pt tolerated procedure well post-op, and had wound dressings done inpatient, surgery recommended completion of antibiotics Cip ro/Flagyl for total course of 10 days of therapy, and outpatient follow-up s/p procedure. Wound cx from fluid aspirated in OR procedure grew Corynebacterium spp. Urology was consulted (Dr. Hernandez) for hematuria sxs, and patient underwent cystoscopy, L RTG pyelogram, laser cystolithotripsy, cystolithoapaxy, EUA on ; operative findings included BPH, cystitis, bladder calculi, and L hydronephrosis. Ct abd/pelvis prior to procedure demonstrated 2 high dependent bladder calculi, 5 mm and 15 mm, with no bladder wall thickening; punctate non- obstructing L renal calculus, mild L hydrouretonephrosis, no obstructing calculus or mass identified, incidental 1.8 cm R adrenal myelolipoma, and mild prostate enlargement. Paz was removed on day of discharge as per Dr. Hernandez's recs, and was ok with sending home patient on home ASA and Plavix, with outpatient follow-up in his office. Per PT recs, pt qualified for [facility], but pt and pt's wanted pt to go home after discharge and requested longterm at home and outpatient PT services. Pt was given scripts for commode, 4-pronged cane, and shower chair. Pt's was given instruction about adequate wound care for pt's rectal abscess until nurse would be available to visit at home pending insurance approval. Pt was instructed to restart home medications on discharge and complete 10 day total course of antibiotics. Pt was instructed to follow with PCP (Dr. Fung), General Surgery (Dr. Aguilera), and Urology (Dr. Hernandez) within 1 week of discharge for follow-up. Discharge Exam - Head Exam Head Exam: ATRAUMATIC, NORMOCEPHALIC - Eye Exam Eye Exam: EOMI, Normal appearance, PERRL - ENT Exam ENT Exam: Mucous Membranes Moist - Respiratory Exam Respiratory Exam: Clear to PA & Lateral, NORMAL BREATHING PATTERN, UNREMARKABLE. absent: Rales, Rhonchi, Wheezes - Cardiovascular Exam Cardiovascular Exam: REGULAR RHYTHM, +S1, +S2. absent: Gallop, Rubs, Systolic Murmur - GI/Abdominal Exam GI & Abdominal Exam: Normal Bowel Sounds, Soft. absent: Firm, Guarding, Hernia, Organomegaly, Rigid, Tenderness, Unremarkable - Rectal Exam Additional comments: Dressing applied to surgical site, c/d/i - Extremities Exam Additional comments: R sided weakness 2/2 hx CVA 13 y ago - Neurological Exam Neurological exam: Alert, Oriented x3 - Psychiatric Exam Psychiatric exam: Normal Affect, Normal Mood - Skin Skin Exam: Dry, Intact, Warm Discharge Plan - Discharge Medications Prescriptions: Aspirin [Ecotrin] 81 mg PO DAILY #30 tabec Atorvastatin [Lipitor] 40 mg PO HS 30 Days tab Ciprofloxacin [Cipro] 500 mg PO Q12H #10 tab Clopidogrel [Plavix] 75 mg PO DAILY #30 tab Famotidine [Pepcid] 20 mg PO BID #60 tab Metoprolol Succinate XL [Toprol XL] 50 mg PO DAILY 30 Days tab metroNIDAZOLE [Flagyl] 250 mg PO Q8 #15 tab Tamsulosin [Flomax] 0.4 mg PO BID #60 cap - Follow Up Plan Condition: FAIR Disposition: HOME/ ROUTINE Instructions: Ciprofloxacin (Systemic), Heart Healthy Diet, Metronidazole (Systemic), Anal Abscess and Fistula (DC), Blood in the Urine (Hematuria), Adult (DC), Coronary Heart Disease (DC), Cystoscopy (DC), Laser Lithotripsy for Kidney Stones (DC), Abscess (GEN) Additional Instructions: Patient medically stable for discharge. Please follow-up with your primary care provider (Dr. Fung) within 1 week of discharge. Please follow-up with General Surgery (Dr. Aguilera) within 1 week of discharge. Please follow-up with Urology (Dr. Hernandez) within 1 week of discharge. Please take antibiotics as prescribed for the next 5 days. Please resume home medications as prescribed. Note changes in dosing of Flomax and Toprol XL. Wound care at home: keep area clear free of fecal matter. Sterile water for irrigation. Dry dressing with gauze. Patient provided scripts for shower chair, commode, and 4-pronged walker. Should symptoms recur or worsen, please call your primary care physician, or report to your nearest emergency department. Referrals: Quentin Aguilera Jr., MD [Staff Provider] - Moreno Fung MD [Staff Provider] - Theresa Hernandez MD [Staff Provider] -
--- NOTE | 2018-03-09 08:00 | OP ---
PROCEDURE DATE: 03/02/2018 PREOPERATIVE DIAGNOSES. Hematuria. Bladder calculi. Benign prostatic hypertrophy. POSTOPERATIVE DIAGNOSES: Hematuria. Bladder calculi. Benign prostatic hypertrophy. PROCEDURES: Cystoscopy. Retrograde ureteropyelogram. Cystogram. Laser lithotripsy and cystolitholapaxy. OPERATING SURGEON: Theresa Hernandez MD Procedure was formed under video endoscopic control as well as under fluoroscopic control. DESCRIPTION OF PROCEDURE: As follows. The patient was placed in lithotomy position. Anesthesia was provided by the anesthesiologist. Genitalia prepped and draped sterilely. The CT scan was reviewed. The findings on CT scan included mild left hydronephrosis. Bladder calculi. Prostatic enlargement. A 22-Sami cystoscope sheath was introduced under direct vision. Urethra, prostate, and bladder were inspected 30-degree and 70-degree lenses. FINDINGS: There was no stricture in the anterior urethra. There was evidence of trilobar prostatic hypertrophy which was occlusive. There was intravesical middle lobe enlargement as well. There was moderate bladder trabeculation. There was no bladder tumor. There was no bladder stone. The ureteral orifices were identified. There was moderate bladder trabeculation. There were two stones within the bladder. The large stone was approximately 2 cm in size. The small stone was approximately 0.5 cm in size. The left retrograde ureteropyelogram was performed. Iodinated contrast dye was instilled via cone-tip catheter into left ureteral orifice. There was noted to be moderate left hydroureteronephrosis. There was no obstruction of the ureter. There was no evidence of filling defect or stricture in the ureter. Laser cystolithotripsy was performed using the holmium laser and the 1000 micron fiber. The procedure was performed in the dusting mode. There was noted to be excellent fragmentation as well as well dusting of stone. Many stone fragments were removed with irrigation. The large stone fragments were also fragmented and removed with the grasping forceps. Complete stone removal was thus accomplished. The bladder was reinspected with 70-degree lens and confirmed the above findings. The iodinated contrast dye was instilled into the bladder. The cystogram demonstrated elevation of the bladder base and a filling defect consistent with prostatic hypertrophy. Post drainage films were obtained as well. The cystoscope and sheath were removed. Paz catheter was inserted. Bladder drainage was light pink and cleared properly with irrigation. Rectal examination was performed. Prostate was supple and smooth, approximately 30 g in size, without fixation, induration, or nodularity. Cystoscopic examination of the prostate revealed occlusive prostatic hypertrophy which was approximately 3 to 4 cm in length. The patient was returned to supine position. The patient tolerated the procedure without complication. [place] MD Mary cc: Moreno Fung MD
--- NOTE | 2018-03-09 21:35 | CON ---
DATE: 03/09/2018 UROLOGY CONSULTATION UROLOGY CONSULTATION REQUESTED BY: Moreno Fung MD UROLOGY CONSULTATION FILLED BY: Theresa Hernandez MD REASON FOR CONSULTATION: Hematuria. HISTORY OF PRESENT ILLNESS: The patient is a 62-year-old male with hematuria. The patient is in otherwise fair health. The patient has history of cerebrovascular disease. He previously had a stroke. He has right-sided hemiparesis. The patient also has aphasia secondary to his previous stroke. The patient has significant past medical history including left carotid endarterectomy, hypertension, hyperlipidemia. The patient underwent surgery for anal fissure on 02/28/2018. Thereafter, he developed hematuria. The patient voids with fair urinary stream. He has mild dysuria. There is no chest pain. No recent blackout or seizure. The patient has history of COPD according to the chart. The patient smokes. The patient lives with his . The patient reports nocturia x2. The patient has good urinary control. The patient has fair urinary stream. Hematuria has improved. There is no history of diabetes. No recent chest pain. No recent fever or rigors. PHYSICAL EXAMINATION: GENERAL: The patient is a well-developed, well-nourished male, appearing his stated age. The patient is awake and alert. His is in attendance. ABDOMEN: Soft, nontender, nondistended. No mass or organomegaly. GENITALIA: Without inflammation. BACK: No CVA tenderness. LABORATORY DATA: Reviewed. See attached. Hematocrit 39, white blood count 9900, platelet count 156,000. BUN 13, creatinine 0.9, glucose 119. The urinalysis reveals 62 white cells, 1454 red cells per high-power field. IMPRESSION: A 62-year-old male with history of cerebrovascular disease. History of previous stroke which resulted in aphasia and right hemipareses. The patient now has hematuria. The patient had recent surgery for anal fistula. The differential diagnosis of hematuria includes urolithiasis, urinary tract infection, and neoplasia. PLAN/RECOMMENDATIONS: Serum PSA. Urine cytology. Review of the CT scan. Recommend cystoscopy. Findings reviewed with the patient and his . Options of therapy reviewed as well. Findings reviewed with the attending physician as well. Plan for cystoscopy during this admission. Thank you for recommending the patient for urology consultation. [place] MD Mary cc: Moreno Fung MD [facility] # [id number]
== END 2018-03-04 18:22 | disposition home or self-care (01) | DRG 345 ==
LOC: C.ER 07:45 → C.9S 10:31 → C.6T 19:06 → OBSVTOIN 03-02 16:52
PROVIDERS: ADMIT Internal Medicine; ATTEND Internal Medicine
PROC: 0TCB8ZZ Extirpation of Matter from Bladder, Via Natural or Artificial Opening Endoscopic (ICD-10-PCS; 2018-03-02)
PROC: 0D9P7ZZ Drainage of Rectum, Via Natural or Artificial Opening (ICD-10-PCS; principal; 2018-03-02 13:00)
PROC: BT1FZZZ Fluoroscopy of Left Kidney, Ureter and Bladder (ICD-10-PCS; 2018-03-02 13:00)
DX: K60.3 Anal fistula (principal); I69.351 Hemiplegia and hemiparesis following cerebral infarction affecting right dominant side; L02.31 Cutaneous abscess of buttock; N13.6 Pyonephrosis; N21.0 Calculus in bladder; N40.1 Benign prostatic hyperplasia with lower urinary tract symptoms; E78.00 Pure hypercholesterolemia, unspecified; J44.9 Chronic obstructive pulmonary disease, unspecified; R31.9 Hematuria, unspecified; I10 Essential (primary) hypertension; F17.210 Nicotine dependence, cigarettes, uncomplicated